=== PATIENT | female | born 1980 | race Caucasian/White ===

== ENCOUNTER 2025-04-01 12:54 | Emergency (ER) | payer MEDICARE, OTHER, MEDICAID, SELFPAY ==
[2025-04-01] VITALS (7 sets, daily range): BP systolic 112–150; BP diastolic 75–96; PULSE 88–110; RESP 18; TEMP 36.7; O2SAT 96–100
--- NOTE | 2025-04-01 13:00 | CTR_ITS ---
PROCEDURE INFORMATION: Exam: CT Head Without Contrast Exam date and time: 04/01/2025 1:17 PM Age: 44 years old Clinical indication: Stroke-like symptoms; Headache; Additional info: COLBERT TECHNIQUE: Imaging protocol: Computed tomography of the head without contrast. Radiation optimization: All CT scans at this facility use at least one of these dose optimization techniques: automated exposure control; mA and/or kV adjustment per patient size (includes targeted exams where dose is matched to clinical indication); or iterative reconstruction. Other technique: STROKE PROTOCOL was implemented. COMPARISON: No relevant prior studies available. RADIATION DOSE METRICS: Total DLP (mGy-cm): 1014.38 FINDINGS: Brain: Area of increased density within the right cerebellum measuring up to 1.5 cm may represent calcification, however focal hemorrhage cannot be excluded. Underlying mass lesion cannot be excluded. No acute confluent lobar ischemic infarct. Cerebral ventricles: The ventricles and sulci are normal in size and shape for the patient's stated age. Paranasal sinuses: No fluid levels. Mastoid air cells: Visualized mastoid air cells are well aerated. Bones: No acute calvarial fracture. Soft tissues: Visualized soft tissues are unremarkable. CT/CT head wo con* 13249 IMPRESSION: 1. Area of increased density within the right cerebellum measuring up to 1.5 cm may represent calcification, however focal hemorrhage cannot be excluded. Underlying mass lesion cannot be excluded. Recommend comparison to prior studies if available. If symptoms persist, consider further evaluation with MRI with and without IV contrast, if there are no contraindications to obtaining a MRI scan. 2. No acute confluent lobar ischemic infarct. ASSESSMENT: ASPECTS ([place] Stroke Program Early CT Score) is 10.
--- NOTE | 2025-04-01 13:03 | ED_ITS ---
HPI - Headache General: Chief Complaint: Headache Stated Complaint: HEADACHE Time Seen by Provider: 04/01/25 12:55 Source: patient and EMS Mode of arrival: EMS Limitations: no limitations History of Present Illness: 44-year-old female states she has a hist ory of hemiplegic migraines. States she has had a migraine over the last 3 days it feels like her previous migraines. She has no focal deficits here has had history of strokes. Patient is refusing all IV meds she states she only takes holistic supplements. She has refused IVs. Associated symptoms: Deny chest pain, fever(s), nausea, rash or vomiting Review of Systems Const: Denies: fever(s), chills, body aches or change in appetite Eyes: Reports: blurry vision; Denies: eye discomfort ENMT: Denies: throat pain or dental pain Card: Denies: chest pain Resp: Denies: dyspnea GI: Denies: abdominal pain, nausea, vomiting or diarrhea Musc: Denies: neck pain or back pain Skin/Breast: Denies: rash Neuro: Reports: headache(s) Physical Exam Const: COMMON NORMALS: no acute distress, patient oriented x3 and healthy appearing HENMT: COMMON NORMALS: normocephalic and atraumatic HEAD & SCALP: normocephalic and atraumatic Neck/C-Spine: COMMON NORMALS: supple Chest: COMMONS NORMALS: normal inspection of the chest Resp: COMMON NORMALS: normal respiratory effort Extremity: COMMON NORMALS: normal to inspection and full ROM Neuro: COMMON NORMALS: patient oriented x3, moves all extremities and no focal motor deficits Psych: COMMON NORMALS: mental status grossly normal, Normal thought process present and cooperative THOUGHT PROCESS: Normal thought process present Skin: COMMON NORMALS: no rashes or lesions noted and no wounds GENERAL SKIN EXAM: no rashes or lesions noted Course Vital Signs: Vital signs: Vital Signs Temperature 98.1 F 04/01/25 12:56 Pulse Rate 110 H 04/01/25 12:56 Respiratory Rate 18 04/01/25 12:56 Blood Pressure 150/96 04/01/25 12:56 Pulse Oximetry 100 04/01/25 12:56 Oxygen Delivery Me thod Room Air 04/01/25 12:56 MDM - Headache Medical Decision Making Patient presents here with headache head CT did show calcified mass versus hemorrhage did report see records from other facilities unable to get another old head CT will transfer to [facility] for an MRI to rule out hemorrhage Medical Records I reviewed the patient's medical records. Lab Data Radiology Impressions Head CT 04/01/25 13:00 IMPRESSION: 1. Area of increased density within the right cerebellum measuring up to 1.5 cm may represent calcification, however focal hemorrhage cannot be excluded. Underlying mass lesion cannot be excluded. Recommend comparison to prior studies if available. If symptoms persist, consider further evaluation with MRI with and without IV contrast, if there are no contraindications to obtaining a MRI scan. 2. No acute confluent lobar ischemic infarct. ASSESSMENT: ASPECTS ([place] Stroke Program Early CT Score) is 10. ADDENDUM: 04/01/25 1341 ADDENDUM: THIS REPORT CONTAINS FINDINGS THAT MAY BE CRITICAL TO PATIENT CARE. The findings were verbally communicated via telephone conference with ERIC BAILON at 1:40 PM CDT on 04/01/2025. The findings were acknowledged and understood. All radiology interpretation(s) finalized by discharge Discharge Plan Discharge Patient Disposition: Xfer Short-Term Hosp Clinical Impression: Headache Condition: Stable Referrals: Rhiannon Rosas MD [Referring, Family Practice] Print Language: Khmer Coding Level of Care Code ED Line Appliance Assembler for Lena Elise
--- NOTE | 2025-04-01 15:02 | PC.NURSE ---
pt refused IV for transport. pt states she is a DNR.
--- NOTE | 2025-04-01 15:43 | PC.PHAR ---
Patient states she takes Cannibus . She takes different strengths and various ways. Patient states it was suppose to come in the mail but she didn't receive it .
[2025-04-01 16:03] LABS: Basophils # 0.1 10^3/uL (0.0-0.1); Basophils % 0.6 %; Eosinophils % 0.1 %; Lymphocytes # 1.7 10^3/uL (0.8-4.8); Lymphocytes % 17.1 %; Mean Corpuscular HGB Conc 33.3 g/dL (30-55); Mean Corpuscular Hemoglobin 31.6 pg (27-33); Mean Corpuscular Volume 94.9 fl (85-98); Mean Platelet Volume 9.9 fL (7.4-10.4); Monocytes # 0.5 10^3/uL (0.2-0.9); Monocytes % 4.7 %; Neutrophils # 7.44 10^3/uL (1.8-7.7); Neutrophils % 77.3 %; Nucleated Red Blood Cells % 0 %; Platelet Count 278 10^3/cmm (157-399); Red Blood Count 4.11 10^6/uL (3.85-5.65); Red Cell Distribution Width 12.1 % (12.1-15.1); White Blood Count 9.63 10^3/uL (3.29-11.43)
[2025-04-01 16:15] LABS: INR 0.87 (0.8-1.2)
[2025-04-01 16:20] LABS: Anion Gap 17.7 (5-19); Blood Urea Nitrogen 14 mg/dL (6-20); Calcium 9.1 mg/dL (8.5-10.5); Carbon Dioxide 24 mmol/L (22-29); Chloride 104 mmol/L (98-107); Glomerular Filtration Rate 90.5 mL/min (90-130); Glucose 95 mg/dL (65-115); Osmolality Calculated 292 mOsm/kg (285-295); Potassium 4.7 mmol/L (3.5-5.1); Sodium 141 mmol/L (136-145)
== END 2025-04-01 16:42 | disposition short-term general hospital (02) ==
PROVIDERS: Emergency Provider Emergency Medicine
DX: R93.0 Abnormal findings on diagnostic imaging of skull and head, not elsewhere classified (principal); R51.9 Headache, unspecified
CPT/HCPCS: 36415; 70450; 80048; 85025; 85610; 99284; 99285

== ENCOUNTER 2025-04-30 17:24 | Inpatient (IN) | payer MEDICARE, OTHER, MEDICAID, SELFPAY ==
--- OUTSIDE RECORDS SUMMARY | 2025-04-30 11:57 | XMS_ITS | Continuity of Care Document ---
Author Name [facility] Organization [facility] Care Team Providers Care Supervisor Denture Department Name Role Phone [facility] Unavailable Unavailable Allergies, Adverse Reactions, Alerts Combined list of allergies from Department of Defense and Veterans Affairs facilities. It does not include entries that were removed or entered in error. Substance Category Reaction Severity Reaction type Status Date Reported Comments Source ALOE VERA (DO NOT USE, NOT SCREENED) (ALOE VERA) Drug allergy (disorder) Unknown active 12/20/2007 [facility] SUDAFED (PSEUDOEPHED RINE HCL) Drug allergy (disorder) Unknown active 12/20/2007 [facility] Social History Combined list of available smoking, tobacco, and other social history from Department of Defense and Veterans Affairs facilities. Social History Type Response Date Comment Sourc e This section is an empty social history section. DoD
[2025-04-30 17:28] VITALS: BP 132/85; PULSE 107; RESP 17; TEMP 37; O2SAT 100; BMI 21.4
--- NOTE | 2025-04-30 17:40 | ED.C_ITS ---
HPI - Psych 2 General: Chief Complaint: Psychiatric Symptoms Stated Complaint: 96 Time Seen by Provider: 04/30/25 17:24 Source: patient and police Mode of arrival: ambulatory History of Present Illness: 44-year-old female who is here with filippo ce on a 96-hour hold patient here is acutely psychotic she has flight of ideas here. Patient's family placed under 96-hour hold for psychosis. She had a recent admission to another facility. Patient denies SI or HI. Related Data Home Medications ?Medication ?Instructions ?Recorded ?Confirmed Cornell Plex Plus Iron 1 cap PO DAILY 04/01/2503/08 ashwagandha root extract 300 mg 300 mg PO DAILY 04/01/25 capsule vit A-vit O-iwxu-wlwqzgbr lozenges 1 addie PO Q2H 04/01/25 (Zinc (with Vitamins A and C) Lozenges) vit D3 50 mcg-vitamin K1 500 10 cap PO DAILY 5 04/01/25 mcg-MK4 1,500 mcg-MK7 180 mcg capsule Allergies Allergy/AdvReac Type Severity Reaction Status Date / Time Ephedrine Analogues Allergy Unknown Verified 04/30/25 17:30 ketamine Allergy Unknown Verified 04/30/25 17:30 Review of Systems 2 Const: Denies: fever(s) or chills ENMT: Denies: throat pain or dental pain Card: Denies: chest pain Resp: Denies: dyspnea GI: Denies: abdominal pain, nausea, vomiting or diarrhea Musc: Denies: neck pain or back pain Skin/Breast: Denies: rash Neuro: Denies: headache(s) Psych: Reports: paranoia Physical Exam 2 Const: COMMON NORMALS: no acute distress, patient oriented x3 and healthy appearing HENMT: COMMON NORMALS: normocephalic and atraumatic HEAD & SCALP: n ormocephalic and atraumatic Neck/C-Spine: COMMON NORMALS: full ROM and supple Chest: COMMONS NORMALS: normal inspection of the chest Resp: COMMON NORMALS: normal respiratory effort Cardio: COMMON NORMALS: regular rate, regular rhythm and No murmurs present (Cardio) RATE: regular rate RHYTHM: regular rhythm Extremity: COMMON NORMALS: normal to inspection and full ROM Neuro: COMMON NORMALS: patient oriented x3, moves all extremities and no focal motor deficits Psych: COMMON NORMALS: mental status grossly normal and cooperative THOUGHT PROCESS: Confabulating thought process present and Flight of ideas present Skin: COMMON NORMALS: no rashes or lesions noted and no wounds GENERAL SKIN EXAM: no rashes or lesions noted Course 2 Vital Signs: Vital signs: Vital Signs Temperature 98.6 F 04/30/25 17:28 Pulse Rate 107 H 04/30/25 17:28 Respiratory Rate 17 04/30/25 17:28 Blood Pressure 132/85 04/30/25 17:28 Pulse Oximetry 100 04/30/25 17:28 Oxygen Delivery Me thod Room Air 04/30/25 17:28 MDM - Psych Medical Decision Making Patient presents here with acute psychosis patient was placed on a 96-hour hold she is medically cleared I spoke to psychiatrist will admit. Medical Records I reviewed the patient's medical records. Lab Data I reviewed the patient's lab results. 04/30/25 17:50 04/30/25 17:50 Laboratory Results WBC 7.11 10^3/uL (3.29-11.43) 04/30/25 17:50 RBC 4.66 10^6/uL (3.85-5.65) 04/30/25 17:50 Hgb 14.40 g/dL (11.27-16.99) 04/30/25 17:50 Hct 43.9 % (36-47) 04/30/25 17:50 MCV 94.2 fl (85-98) 04/30/25 17:50 MCH 30.9 pg (27-33) 04/30/25 17:50 MCHC 32.8 g/dL (30-55) 04/30/25 17:50 RDW 11.9 % (12.1-15.1) L 04/30/25 17:50 Plt Count 300 10^3/cmm (157-399) 04/30/25 17:50 MPV 9.3 fL (7.4-10.4) 04/30/25 17:50 Neut % (Auto) 66.1 % 04/30/25 17:50 Lymph % (Auto) 25.3 % 04/30/25 17:50 [facility] % (Auto) 6.8 % 04/30/25 17:50 Eos % (Auto) 0.6 % 04/30/25 17:50 Baso % (Auto) 0.8 % 04/30/25 17:50 Neut # (Auto) 4.70 10^3/uL (1.8-7.7) 04/30/25 17:50 Lymph # (Auto) 1.8 10^3/uL (0.8-4.8) 04/30/25 17:50 [facility] # (Auto) 0.5 10^3/uL (0.2-0.9) 04/30/25 17:50 Eos # (Auto) 0.0 10^3/uL (0.0-0.8) 04/30/25 17:50 Baso # (Auto) 0.1 10^3/uL (0.0-0.1) 04/30/25 17:50 Nucleated RBC % (auto) 0 % 04/30/25 17:50 Nucleated RBCs # 0.0 /100WBC 04/30/25 17:50 Sodium 137 mmol/L (136-145) 04/30/25 17:50 Potassium 3.9 mmol/L (3.5-5.1) 04/30/25 17:50 Chloride 100 mmol/L (98-107) 04/30/25 17:50 Carbon Dioxide 23 mmol/L (22-29) 04/30/25 17:50 Anion Gap 17.9 (5-19) 04/30/25 17:50 BUN 14 mg/dL (6-20) 04/30/25 17:50 Creatinine 0.7 mg/dL (0.5-0.9) 04/30/25 17:50 GFR Calculation 90.5 mL/min (90-130) 04/30/25 17:50 Glucose 102 mg/dL (65-115) 04/30/25 17:50 Calculated Osmolality 285 mOsm/kg (285-295) 04/30/25 17:50 Calcium 9.0 mg/dL (8.5-10.5) 04/30/25 17:50 Total Bilirubin 0.3 mg/dL (0.15-1.2) 04/30/25 17:50 AST 14 U/L (0-32) 04/30/25 17:50 ALT 28 U/L (0-33) 04/30/25 17:50 Alkaline Phosphatase 81 U/L (35-105) 04/30/25 17:50 Total Protein 7.3 g/dL (6.6-8.7) 04/30/25 17:50 Albumin 4.4 g/dL (3.5-5.2) 04/30/25 17:50 Globulin 2.9 g/dL (1.3-4.6) 04/30/25 17:50 Salicylates < 0.3 mg/dL (3-10) L 04/30/25 17:50 Acetaminophen < 5.0 ug/mL (10-30) L 04/30/25 17:50 Ethyl Alcohol < 10 mg/dL (0-10) 04/30/25 17:50 No radiology studies performed this visit Discharge Plan Discharge Patient Disposition: Admitted As Inpatient Clinical Impression: Acute psychosis Condition: Stable Coding Level of Care Code ED Devops Architect for Lena Elise
[2025-04-30 18:04] LABS: Basophils # 0.1 10^3/uL (0.0-0.1); Basophils % 0.8 %; Eosinophils % 0.6 %; Hematocrit 43.9 % (36-47); Lymphocytes # 1.8 10^3/uL (0.8-4.8); Lymphocytes % 25.3 %; Mean Corpuscular HGB Conc 32.8 g/dL (30-55); Mean Corpuscular Hemoglobin 30.9 pg (27-33); Mean Corpuscular Volume 94.2 fl (85-98); Mean Platelet Volume 9.3 fL (7.4-10.4); Monocytes # 0.5 10^3/uL (0.2-0.9); Monocytes % 6.8 %; Neutrophils % 66.1 %; Nucleated Red Blood Cells % 0 %; Platelet Count 300 10^3/cmm (157-399); Red Blood Count 4.66 10^6/uL (3.85-5.65); Red Cell Distribution Width 11.9 % (12.1-15.1); White Blood Count 7.11 10^3/uL (3.29-11.43)
--- OUTSIDE RECORDS SUMMARY | 2025-04-30 18:07 | XMS_ITS | Clinical Summary ---
Author Organization [facility] Address [address] [place] [id number] Care Team Providers Care Station Cashier Name Role Phone Unavailable Primary Care Provider Unavailabl e Allergies No known active allergies Medications topiramate (TOPAMAX) 50 MG tablet Take 50 mg by mouth 2 (two) times a day. Active gabapentin (NEURONTIN) 300 MG capsule Take 300 mg by mouth 3 (three) times a day. Active TiZANidine (ZANAFLEX) 6 MG capsule Take 6 mg by mouth daily. Active venlafaxine (EFFEXOR) 75 MG tablet Take 75 mg by mouth 2 (two) times a day. Active butalbital-aceta minophen-caffein e (ESGIC) 50-325-40 mg per tablet Take 1 tablet by mouth every 4 (four) hours as needed for pain. Active Social History Tobacco Use Types Packs/Day Years Used Date Smoking Tobacco: Former Smokeless Tobacco: Never Alcohol Use Standard Drinks/Week Comments Never 0 (1 standard drink = 0.6 oz pur e alcohol) AUDIT-C Answer Date Recorded Q1: How often do you have a drink containing alc ohol? Never 02/18/2019 Q2: How many drinks containi ng alcohol do you have on a typical day when you are drinking? Patient declined 02/18/2019 Q3: How often do you have si x or more drinks on one occasion? Never 02/18/2019 Comments No Sex and Gender Information Value Date Recorded Sex Assigned at Not on file Legal Sex Female 6:07 PM CDT Gender Identity Not on file Sexual Orientation Not on file Last Filed Vital Signs Vital Sign Reading Time Taken Comments Blood Pressure 122/75 02/18/2019 7:35 AM CDT Pulse 71 02/18/2019 7:35 AM CDT Temperature 37.1 C (98.7 F) 02/18/2019 7:35 AM CDT Respiratory Rate 16 02/18/2019 7:35 AM CDT Oxygen Saturation 99% 02/18/2019 7:35 AM CDT Inhaled Oxygen Concentration - - Weight 74.4 kg (164 lb) 02/17/2019 9:46 PM CDT Height 162.6 cm (5' 4 ) 02/17/2019 9:46 PM CDT Body Mass Index 28.15 02/17/2019 9:46 PM CDT Plan of Treatment Health Maintenance Due Date Last Done Comments COLONOSCOPY 1979 CT Colonography 1979 Colorectal Cancer Screening 1979 FIT DNA 1979 FIT 1979 Hepatitis C Screening 1979 Mammogram 1979 SIGMOIDOSCOPY 1979 Anxiety Screening 1987 HIV Screening 1994 Depression Screening 1997 Hepatitis B Vaccine (1 of 3 - 19+ 3-dose series) 1998 TDAP/DTaP/TD Vaccines (1 - Tdap) 1998 Pap Smear 2000 Cervical Cancer Screening (30-65) 2009 HPV/Cotest 2009 Lipid Panel 02/19/2024 02/18/2019 COVID-19 Vaccine ( - 2023-2 5 season) 2024 Influenza Series (Season Ended) 2025 Meningococcal B Vaccine Aged Out No l onger eligible based on patient's age to complete this topic Pneumococcal Vaccine 0-50 years Aged Out No longer eligible based on patient's age to complete this topic Procedures Procedure Name Priority Date/Time Associated Diagnosis Comments LIPID PANEL Routine 02/18/2019 5:53 AM CDT from Last 3 Months or Most Recently Relevant to Health Maintenance Results * Lipid panel (CHOL, TRIG, HDL, LDL) (02/18/2019 5:53 AM CDT) Cholesterol 171 mg/dL 02/18/2019 6:33 AM CDT [facility] Comment:ADULT INTERVAL: Yohana rable:< 200 mg/dL, Borderline: 200-239 mg/dL, High Risk: > 239 mg/dL, CHILDREN and ADOLESCENTS: Desirable: <170 mg/dL, Borderline: 170- 199 mg/dL, High: >199 mg/dL Triglycerides 74 mg/dL 02/18/2019 6:33 AM CDT [facility] Comment:IN FASTING PATIENTS: Normal: <150 mg/dL, Borderline-High: 150-199 mg/dL, High: >199 mg/dL HDL 34 mg/dL 02/18/2019 6:33 AM CDT [facility] Comment:Desirable: >60, Incr eased Risk: <40 LDL Chol 122 mg/dL 02/18/2019 6:33 AM CDT [facility] Comment:ADULT INTERVALS: Opt imal < 100 mg/dL, Low risk 100-129 mg/dL, Borderline risk 130-159 mg/dL, High >159 mg/dL Blood 02/18/2019 5:53 AM CDT 02/18/2019 5:59 AM CDT Narrative [facility] - 02/18/2019 6:33 AM CDT An optional LDL-C goal of less than 70 mg/dL may be considered for patients at high CHD risk. In children and adolescents a desirable LDL serum cholesterol is less than 110 mg/dL. Norma Amor MD LAB BLOOD ORDERABLES Final Resul t [facility] [address] [id number], from Last 3 Months or Most Recently Relevant to Health Maintenance [place] [address] [address] [address] [employer] Advance Directives * Full Code (Latest Code Status on File) Date Activated Date Inactivated Comments 02/18/2019 4:58 AM 02/18/2019 11:16 PM
[2025-04-30 18:22] LABS: Acetaminophen < 5.0 ug/mL (10-30); Alanine Aminotransferase 28 U/L (0-33); Albumin Level 4.4 g/dL (3.5-5.2); Alcohol Level < 10 mg/dL (0-10); Alkaline Phosphatase 81 U/L (35-105); Anion Gap 17.9 (5-19); Aspartate Amino Transferase 14 U/L (0-32); Blood Urea Nitrogen 14 mg/dL (6-20); Carbon Dioxide 23 mmol/L (22-29); Chloride 100 mmol/L (98-107); Globulin 2.9 g/dL (1.3-4.6); Glomerular Filtration Rate 90.5 mL/min (90-130); Glucose 102 mg/dL (65-115); Osmolality Calculated 285 mOsm/kg (285-295); Potassium 3.9 mmol/L (3.5-5.1); Salicylate < 0.3 mg/dL (3-10); Sodium 137 mmol/L (136-145); Total Bilirubin 0.3 mg/dL (0.15-1.2); Total Protein 7.3 g/dL (6.6-8.7)
[2025-04-30 18:41] LABS: HCG Qualitative Urine. Negative (Negative)
[2025-04-30 18:46] LABS: Amphetamines Screen Urine Negative (Negative); Barbiturates Screen Urine Negative (Negative); Benzodiazepines Screen Urine Negative (Negative); Cocaine Screen Urine Negative (Negative); Opiate Screen Urine Negative (Negative); PCP Screen Urine Negative (Negative); THC Screen Urine Negative (Negative)
--- NOTE | 2025-04-30 18:46 | PC.NURSE ---
96 hr rights reviewed with pt @0773 with assistance of [facility] credit administration officer Carlos Aguilera. All education reviewed with pt at this time. Pt verbalized understanding to hold parameters but insisted to this HS that she was not here for psychiatric related reasons. Pt was provided a copy of her 96 hr hold pt rights. Pt dressed out, labs obtained, and 1:1 PSA within sight of pt. No further needs at this time.
[2025-04-30 19:06] VITALS: BP 128/72; PULSE 98; RESP 16; O2SAT 100
[2025-04-30 21:49] VITALS: BP 115/75; PULSE 81; RESP 20; TEMP 36.9; O2SAT 99
[2025-04-30 21:57] VITALS: BP 120/80; PULSE 85; RESP 16; O2SAT 100
[2025-04-30 22:00] VITALS: BP 115/75; PULSE 81; RESP 20; TEMP 36.9; O2SAT 99
[2025-05-01 06:00] VITALS: BP 95/57; PULSE 77; RESP 16; O2SAT 99
[2025-05-01 14:00] VITALS: BP 111/70; PULSE 90; RESP 16; TEMP 36.7; O2SAT 99
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
[2025-05-01 22:00] VITALS: BP 115/68; PULSE 79; RESP 20; TEMP 36.6; O2SAT 97
[2025-05-01] MEDS: MELATONIN 3 MG TABLET 9 MG PO (22:06)
[2025-05-02 06:00] VITALS: BP 96/62; PULSE 62; RESP 19; TEMP 36.4; O2SAT 97
--- NOTE | 2025-05-02 11:47 | P.NPUPN_ITS ---
Subjective NPU 2 Subjective: Patient presents today reporting that she is doing okay. She identified that she has all these complaints that she believes to be real and gets very frustrated at any suggestion that there may need to be some independent assessment of the validity of these somatic complaints and medical conditions that she swears exist including the danger of her walking leading to a heart attack. We discussed the possibility of taking her wheelchair. She is not on any medications and has not open the medications because she does not believe that there is any psychiatric condition here to be addressed. Mental Status Exam 2 MSE Comments: This is a well-nourished well-developed white female in hospital scrubs with limited grooming and eye contact. No abnormal movements except for significant psychomotor retardation. Somewhat cooperative with exam in mild to moderate distress. Speech was increased rate but normal volume At times she was pressured. Mood described as fine and not needing to be on a psychiatric unit, but affect somewhat irritable. Thought process linear at times but quite disorganized at others. Thought content: Patient denied suicidal or homicidal ideation, there were no delusions reported but she clearly had paranoid, persecutory and significant somatic/medical ideations and delusions, she did not report any auditory or visual hallucinations. Stressors include legal and civil process issues, financial issues, and family involvement in psychiatric hospitalizations. Attention and concentration were intact and memory was unreliable, but none were formally tested. She was alert and oriented to person and place. Insight, judgment and impulse control are all impaired. Vitals/I&O/Wt Last Vital Signs Temp 97.6 F 05/02/25 06:00 Pulse 62 05/02/25 06:00 Resp 19 H 05/02/25 06:00 BP 96/62 05/02/25 06:00 Pulse Ox 97 05/02/25 06:00 O2 Del Method Room Air 05/02/25 06:00 Weight last 48 hrs Weight 56.699 kg Data NPU 04/30/25 17:50 04/30/25 17:50 A&P Assessment and plan (1) Acute psychosis: Plan This is a 44-year-old white female who is unknown to this typewriter repairer or [facility] psychiatry through inpatient or outpatient services and presents with significant somatic complaints reporting that she has to use a wheelchair and has multiple different afflictions and comorbidities denying any psychiatric needs but reporting special abilities to tell when there is cancer at a certain site on her body as well as other abilities she has to just know that something is wrong because it is what she thinks. She is a spouse and all kinds of different limitations that are related to medical problems including cardiac issues, DVTs, weakness, and endorsing no connection to psychiatry though endorses having 3 past inpatient hospitalizations. 1. Encourage initiation of an antipsychotic. 2. Continue every 15 minute checks for safety. 3. Encourage individual, group and milieu therapies. 4. Will encourage trial of medication with a possible long acting injectable possibility. 5. We will evaluate against the backdrop of the 96-hour hold. 6. Obtain collateral information. PDMP PDMP Reviewed: Not Reviewed Involuntary Hold Information 2 Hold Status: Legal Status: 96 Hour Hold Date/Time Hold Expires: 05/06 1728pm Attestations NPU 2 Medical Necessity Statement*: Inpatient hospitalization is medically necessary and the clinically appropriate intervention at this time. We will monitor medications and make changes as indicated. Likely length of stay 7-10 days. Likely need for 21 day hold. Coding Level of Care Code Acute Code for Chg Fwd Diagnoses Acute psychosis F23
[2025-05-02 14:00] VITALS: BP 108/73; PULSE 90; RESP 18; TEMP 36.8; O2SAT 100
[2025-05-02 21:36] VITALS: BP 95/64; PULSE 90; RESP 17; TEMP 36.6; O2SAT 98
[2025-05-02] MEDS: MELATONIN 3 MG TABLET 9 MG PO (21:51)
[2025-05-03 06:00] VITALS: BP 103/59; PULSE 85; RESP 18; TEMP 36.5; O2SAT 99
[2025-05-03 14:00] VITALS: BP 98/60; PULSE 80; RESP 16; TEMP 37.2; O2SAT 98
--- NOTE | 2025-05-03 15:36 | W.PM.NPUPNS ---
Subjective NPU Subjective: Patient presented today continuing her long-winded discussions about somatic issues and how she was put on disability secondary to multiple different concerns and continuing to report the dangers of her walking with no signs of any discomfort. We asked for her to provide any information into her circumstances. We discussed that we would attempt to get a hold of Dr. Chaudhary to understand what her intersection with her was given she may have some insight into these neurological complaints. She denies any psychiatric concerns, wants to be discharged and is not interested in any medications. Mental Status Exam MSE Comments: This is a well-nourished well-developed white female in hospital scrubs with limited grooming and eye contact. No abnormal movements except for significant psychomotor retardation. Somewhat cooperative with exam in mild to moderate distress. Speech was increased rate but normal volume At times she was pressured. Mood described as fine and not needing to be on a psychiatric unit, but affect somewhat irritable. Thought process linear at times but quite disorganized at others. Thought content: Patient denied suicidal or homicidal ideation, there were no delusions reported but she clearly had paranoid, persecutory and significant somatic/medical ideations and delusions, she did not report any auditory or visual hallucinations. Stressors include legal and civil process issues, financial issues, and family involvement in psychiatric hospitalizations. Attention and concentration were intact and memory was unreliable, but none were formally tested. She was alert and oriented to person and place. Insight, judgment and impulse control are all impaired. Vitals/I&O/Wt Last Vital Signs Temp 97.7 F 05/03/25 06:00 Pulse 85 05/03/25 06:00 Resp 18 05/03/25 06:00 BP 103/59 05/03/25 06:00 Pulse Ox 99 05/03/25 06:00 O2 Del Method Room Air 05/03/25 06:00 Data NPU 04/30/25 17:50 04/30/25 17:50 A&P Assessment and plan (1) Acute psychosis: Plan This is a 44-year-old white female who is unknown to this technical publications writer or [facility] psychiatry through inpatient or outpatient services and presents with significant somatic complaints reporting that she has to use a wheelchair and has multiple different afflictions and comorbidities denying any psychiatric needs but reporting special abilities to tell when there is cancer at a certain site on her body as well as other abilities she has to just know that something is wrong because it is what she thinks. She is a spouse and all kinds of different limitations that are related to medical problems including cardiac issues, DVTs, weakness, and endorsing no connection to psychiatry though endorses having 3 past inpatient hospitalizations. 1. Encourage initiation of an antipsychotic. 2. Continue every 15 minute checks for safety. 3. Encourage individual, group and milieu therapies. 4. Will encourage trial of medication with a possible long acting injectable possibility. 5. We will evaluate against the backdrop of the 96-hour hold. 6. Obtain collateral information. PDMP PDMP Reviewed: Not Reviewed Involuntary Hold Information Hold Status: Legal Status: 96 Hour Hold Date/Time Hold Expires: 05/06 1728pm Attestations NPU Medical Necessity Statement*: Inpatient hospitalization is medically necessary and the clinically appropriate intervention at this time. We will monitor medications and make changes as indicated. Likely length of stay 7-10 days. Likely need for 21 day hold. Coding Level of Care Code Acute Code for Chg Fwd Diagnoses Acute psychosis F23
[2025-05-03 20:29] VITALS: BP 92/64; PULSE 7; RESP 18; TEMP 37.3; O2SAT 99
[2025-05-03] MEDS: MELATONIN 3 MG TABLET 9 MG PO (22:28)
--- NOTE | 2025-05-04 03:55 | PC.NURSE ---
Patient assessment significant for patient with rapid speech and flight of ideas. 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 She states she really needs the [facility] because I have peripheral blind spots and a fire alarm. She states that she has sun poisoning and leprosy. Discussed with patient her current ADL's she states that she uses a rolling walker and is disabled. She has good strength in her upper and lower extremities. Patient has requested to have family bring her walker from home and she said they are also bringing her disability file. Patient has been using a WC while on the unit. She also ambulates in room without the WC. Informed patient that we will be getting a walker for her to use while she is here until her walker is brought in. Patient denies anxiety, depression, SI/HI and AVH. Patient received Melatonin 9 mg po for c/o insomnia and has slept since receiving it.
[2025-05-04 06:00] VITALS: BP 106/68; PULSE 85; RESP 18; TEMP 36.7; O2SAT 100
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
[2025-05-04 14:00] VITALS: BP 108/68; PULSE 76; RESP 16; O2SAT 100
[2025-05-04] MEDS: MELATONIN 3 MG TABLET 9 MG PO (20:17)
[2025-05-04 22:00] VITALS: BP 105/77; PULSE 106; RESP 18; TEMP 37.1; O2SAT 98
[2025-05-05 06:00] VITALS: RESP 16
[2025-05-05 14:00] VITALS: BP 124/78; PULSE 74; RESP 16; TEMP 37; O2SAT 98
--- NOTE | 2025-05-05 17:29 | ECG_ITS ---
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 Measurements Intervals [place] Rate: 83 P: 23 WV: 129 QRS: 44 QRSD: 92 T: 50 QT: 372 QTc: 439 Interpretive Statements SINUS RHYTHM POSSIBLE RIGHT VENTRICULAR CONDUCTION DELAY [RSR (QR) IN V1/V2] No previous ECG available for comparison Electronically Signed On 05-09-2025 09:10:56 CDT by Franky Amos M.D. [email or web address]
--- NOTE | 2025-05-05 18:23 | W.PM.NPUPNS ---
Subjective NPU Subjective: 44-year-old female with a history of traumatic brain injury who presented with psychosis. The patient refused any medications at this time. She was not aggressive. She had continued to endorse a myriad of different complaints including having chest pain. An EKG was completed. She reports having special abilities to detect cancer. She had elicited a variety of complaints stating that she had had medical problems including migraines that were triggered by her fibromyalgia. She remained convinced that the reason that she was here on a psychiatric unit was because there had been a simple misunderstanding. She had stated that she had things worked out at home and felt ready to go home as soon as possible. The patient reported no suicidal thoughts or homicidal thoughts. Mental Status Exam MSE Comments: This is a well-nourished ,well-developed, white female in hospital scrubs with limited grooming and eye contact. She was lying in the dark reporting a migraine. No abnormal movements except for significant psychomotor retardation. She was somewhat cooperative with exam in mild to moderate distress. Speech was increased in rate, productivity and normal in volume. Mood described as good. Her affect was subdued. Thought process was linear at times but quite disorganized at others. Thought content: Patient denied suicidal or homicidal ideation, there were ideas of reference appreciated. She endorsed various medical and somatic complaints. she did not report any auditory or visual hallucinations. Stressors include legal and civil process issues, financial issues, and family involvement in psychiatric hospitalizations. Attention and concentration were intact and memory was unreliable, but none were formally tested. She was alert and oriented to person, place and time. Insight is impaired. Her judgment is limited and impulse control was fair. Vitals/I&O/Wt Last Vital Signs Temp 98.6 F 05/05/25 14:00 Pulse 74 05/05/25 14:00 Resp 16 05/05/25 14:00 BP 124/78 05/05/25 14:00 Pulse Ox 98 05/05/25 14:00 O2 Del Method Room Air 05/05/25 14:00 Weight last 48 hrs Weight 54.658 kg Data NPU 04/30/25 17:50 04/30/25 17:50 A&P Assessment and plan (1) Acute psychosis: Plan This is a 44-year-old white female who is unknown to this fiction and nonfiction prose writer or [facility] psychiatry through inpatient or outpatient services and presents with significant somatic complaints reporting that she has to use a wheelchair and has multiple different afflictions and comorbidities denying any psychiatric needs but reporting special abilities to tell when there is cancer at a certain site on her body as well as other abilities she has to just know that something is wrong because it is what she thinks. She is a spouse and all kinds of different limitations that are related to medical problems including cardiac issues, DVTs, weakness, and endorsing no connection to psychiatry though endorses having 3 past inpatient hospitalizations. 1. Encourage initiation of an antipsychotic. 2. Continue every 15 minute checks for safety. 3. Encourage individual, group and milieu therapies. 4. Will encourage trial of medication with a possible long acting injectable possibility. 5. We will evaluate against the backdrop of the 96-hour hold which expires tommorow. PDMP PDMP Reviewed: Not Reviewed Involuntary Hold Information Hold Status: Legal Status: 96 Hour Hold Date/Time Hold Expires: 05/06 1728pm Attestations NPU Medical Necessity Statement*: Inpatient hospitalization is medically necessary and the clinically appropriate intervention at this time. We will monitor medications and make changes as indicated. The patient's likely length of stay is 4-6 days. Coding Level of Care Code Acute Code for Chg Fwd Diagnoses Acute psychosis F23
[2025-05-05] MEDS: MELATONIN 3 MG TABLET 9 MG PO (20:51)
[2025-05-05 22:00] VITALS: RESP 18
[2025-05-06 06:00] VITALS: BP 97/70; PULSE 88; RESP 17; TEMP 36.4; O2SAT 98
--- NOTE | 2025-05-06 12:35 | DCPLANNER ---
IMM completed 05/06/2025 @ 4225 and pt was give an copy of her rights.
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
[2025-05-06 13:09] VITALS: BP 97/59; PULSE 81; RESP 16; TEMP 36.8; O2SAT 100
[2025-05-06 13:12] VITALS: BP 97/59; PULSE 81; RESP 16; TEMP 36.8; O2SAT 100
== END 2025-05-06 13:45 | disposition home or self-care (01) | DRG 885 ==
LOC: ER 21:11 → NP 21:30
PROVIDERS: Admitting Provider Psychiatry & Neurology Psychiatry; Emergency Provider Emergency Medicine; Visit Provider Psychiatry & Neurology Psychiatry
DX: F23 Brief psychotic disorder (principal); I25.10 Atherosclerotic heart disease of native coronary artery without angina pectoris; Z87.820 Personal history of traumatic brain injury; Z86.73 Personal history of transient ischemic attack (TIA), and cerebral infarction without residual deficits; Z86.718 Personal history of other venous thrombosis and embolism; Z85.828 Personal history of other malignant neoplasm of skin
CPT/HCPCS: 36415; 80053; 80306; 80307; 81025; 85025; 93005; 97150; 97165; 97530; 99285; J9999

== ENCOUNTER 2025-09-10 16:28 | Inpatient (IN) | payer MEDICARE, OTHER, MEDICAID, SELFPAY ==
--- OUTSIDE RECORDS SUMMARY | 2024-09-01 03:00 | XMS_ITS ---
Author Organization [facility] Address [address] [place] [address] Care Team Providers Care Printed Forms Proofreader Name Role Phone Xavier Rizo MD Primary Care Provider Unavaila ble Migration, Provider Unavailable Unavailable REASON FOR VISIT EMR-Petey Encounters Encounter Location Date Provider Diagnosis Migrated_Facility 0 0 09/01/2024 Provider Migration Plan Of Treatment Medication Medication Name Sig Start Date Stop Date Notes Gabapentin 300 MG Capsule 1 Capsule Thre e times a Day Oral 04/30/2019 07/29/2019 Progress Notes * Swetha PATTENDOB:1980 (45 yo F)Acc No.[id number]:09/01/2024 Patient: Swetha DAY :1980 A ge:44 Y S ex:Female Address:[address] [place], [address] * Refills Stop Gabapentin Capsule, 300 MG, Oral, 1 Capsule Three times a Day Subjective: * Chief Complaints: * E MR-Petey * * Date:
--- OUTSIDE RECORDS SUMMARY | 2024-09-02 03:00 | XMS_ITS ---
Author Organization [facility] Address [address] [place], [place] [address] Care Team Providers Care Medical Liaison Name Role Phone Xavier Rizo MD Primary Care Provider Unavaila ble Migration, Provider Unavailable Unavailable Allergies Allergen (clinical drug ingredient) Drug/Non Drug Allergy documented on EMR Reaction Allergy Type Onset Date Status Aloe Vera hives,swelling Drug Allergy Ac tive pseudoephedrine Pseudoephedrine palpitations Drug Allergy Active REASON FOR VISIT EMR-Petey Medications Medication SIG (Take, Route, Frequency, Duration) Notes Start Date End Date Status Lexapro *[facility]* Active Voltaren *[facility] Active Aleve *[facility]* Active Aspirin *[facility]* Active Ibuprofen *[facility]* Active Butalbital-Acetamino phen *[facility] for [facility]* Active Tylenol *[facility] for [facility]* Active Social History Social History Additional Details Category Social Info Options Details Migrated Social History Migrated Social History Alcoholic beverages? - Yes, Applying for disability? - Yes, Currently on disability? - No, Drug or substance abuse? - No, If yes, frequency of alcoholic beverages - Less than 1 drink per week., Marital Status - , Nonprescription drug use? - No, Smoking - No, Smoking status (MU) - Never smoker, Working currently? - No Encounters Encounter Location Date Provider Diagnosis Migrated_Facility 0 0 09/02/2024 Provider Migration Plan Of Treatment No Information Progress Notes * Swetha PATTENDOB:1980 (45 yo F)Acc No.[id number]:09/02/2024 Patient: Swetha DAY :1980 A ge:44 Y S ex:Female Address:[facility] [address] [facility] [address] Subjective: * Chief Complaints: * E MR-Petey * Medical History: Arthritis, B ronchitis, C lassic migraine, C onstipation, D epression, H ypoglycemia, M uscle disease, S welling joint, finger, hand, * Surgical History: section * Family History: M igrated Family History: : Cancer, D iabetes, H eart disease, p sychiatric problems, R heumatoid arthritis, S troke. * Social History: M igrated Social History: M igrated Social History: Alcoholic beverages? - Yes, A pplying for disability? - Yes, C urrently on disability? - No, D rug or substance abuse? - No, I f yes, frequency of alcoholic beverages - Less than 1 drink per week., M arital Status - , N onprescription drug use? - No, S moking - No, S moking status (MU) - Never smoker, W orking currently? - No. * Medications: T akingButalbital-Acetaminophen , Notes to Pharmacist: *Pick strength-form from [facility] for eRX*Lexapro , Notes to Pharmacist: *Pick strength-form from [facility] for eRX*Aspirin , Notes to Pharmacist: *Pick strength-form from [facility] for eRX*Voltaren , Notes to Pharmacist: *Pick strength-form from [facility] for eRX*Tylenol , Notes to Pharmacist: *Pick strength-form from [facility] for eRX*Ibuprofen , Notes to Pharmacist: *Pick strength-form from [facility] for eRX*Aleve , Notes to Pharmacist: *Pick strength-form from [facility] for eRX*Taking Butalbital-Acetaminophen , Notes to Pharmacist: *Pick strength-form from [facility] for eRX*Taking Lexapro , Notes to Pharmacist: *Pick strength-form from [facility] for eRX*Taking Aspirin , Notes to Pharmacist: *Pick strength-form from [facility] for eRX*Taking Voltaren , Notes to Pharmacist: *Pick strength-form from [facility] for eRX*Taking Tylenol , Notes to Pharmacist: *Pick strength-form from [facility] for eRX*Taking Ibuprofen , Notes to Pharmacist: *Pick strength-form from [facility] for eRX*Taking Aleve , Notes to Pharmacist: *Pick strength-form from [facility] for eRX* * Allergies: A stephen Vera: hives,swelling - AllergyPseudoephedrine: palpitations - Allergy * * Date:
--- NOTE | 2025-09-10 16:30 | ECG_ITS ---
[facility] Test Date: 2025-09-10 Pat Name: Swetha Richard Department: Room: 150 Gender: Female Military Analyst: : 1980 Requested By: Bessy López Order Number: [id number] Shahbaz MD: Carmenza Ward M.D. Measurements Intervals [place] Rate: 89 P: 73 IL: 121 QRS: 70 QRSD: 86 T: 69 QT: 387 QTc: 472 Interpretive Statements SINUS RHYTHM Compared to ECG 05/05/2025 17:29:46 No significant changes Electronically Signed On 09-10-2025 21:50:56 MANAGER IN TRAINING by Carmenza Ward M.D. [email or web address]
--- NOTE | 2025-09-10 16:34 | ED.C_ITS ---
HPI - Psych 2 General: Chief Complaint: Psychiatric Symptoms Stated Complaint: Weakness History of Present Illness: 45-year-old female who presents emergenc y room by ambulance. EMS was initially called for a possible fall. She was laying in the parking lot of a local business. She told them that she has had multiple strokes and she felt like she was having another so she laid down on the ground. Shortly into the drive she started talking about things that were not real. She was having flight of ideas and thoughts of grandeur. When I see her here she is all over the place and really makes no sense. She seems pressured. She is wearing odd clothing. EMS reports that she may have been incarcerated in [place] recently. And possibly admitted there. However whenever I call ER doctor at [place] they said she has not been admitted there since 2019 but had very similar presentation at the time. Related Data Home Medications ?Medication ?Instructions ?Recorded ?Confirmed No Known Home Medications 05/01/2504/08 Allergies Allergy/AdvReac Type Severity Reaction Status Date / Time Ephedrine Analogues Allergy Unknown Verified 04/30/25 17:30 ketamine Allergy Unknown Verified 04/30/25 17:30 Review of Systems 2 General: Reports: ROS unobtainable due to mental status Physical Exam 2 Narrative: EXAM NARRATIVE: General: Alert, no acute distress. Skin: Warm, dry. Head: Normocephalic, atraumatic. Neck: Supple, trachea midline. Eye: Extraocular movements are intact. Ears, nose, mouth and throat: mucosa moist. Cardiovascular: Regular, Normal peripheral perfusion. Respiratory: Lungs are clear to auscultation, respirations are non-labored, breath sounds are equal, Symmetrical chest wall expansion. Gastrointestinal: Soft, Nontender, Non distended Musculoskeletal: Normal ROM, no deformity. Neurological: Alert and oriented, No focal neurological deficit observed. Psychiatric: Uncooperative. Flight of ideas. Manic/pressured. Course 2 Vital Signs: Vital signs: Vital Signs Temperature 98.7 F 09/10/25 16:38 Pulse Rate 65 09/10/25 19:24 Respiratory Rate 16 09/10/25 19:24 Blood Pressure 109/64 09/10/25 19:24 Pulse Oximetry 98 09/10/25 19:24 Oxygen Delivery Me thod Room Air 09/10/25 16:38 MDM - Psych Medical Decision Making Medical decision making: Patient's reason for coming to the emergency room: Psychosis Social determinants: Patient is unemployed. No contacts listed. I reviewed the patient's medical record. Patient had an admission here back in April of this year. From that I gather that she has had coronary artery disease and a stroke in the past. She also reported a traumatic brain injury at the time. However it is unclear if any of these things are true. I reviewed the patient's current home meds: No currently listed home meds. Alternate historians: I did speak with EMS. I also spoke with ER physician at [facility] who confirms she had a similar type admission back in 2019 but none since Differential diagnosis for patient with reported psychosis with plan for psychiatric admission including but not limited to and based on the above HPI, review of systems and physical exam: concerns for infection, alcohol intoxication, cardiac issues or other medical problems prior to psychiatric admission. Orders placed to evaluate differential diagnosis based on the above differential, HPI and physical exam labwork, ekg ordered to evaluate the pathologies and to clear the patient medically prior to psychiatric admission Lab Review: Laboratory results were reviewed and interpreted by myself the emergency room physician. - Medically cleared. - EKG shows no ischemic changes. - Blood alcohol level is negative, as well as salicylate and Tylenol. - Drug screen is negative - No signs of infection, urinalysis clear and white count is not elevated - No anemia. - BUN and creatinine are within normal limits. Assessment of risk: - Level of risk: High risk. Patient seems psychotic - Was hospitalization considered? Patient is being admitted Reexamination: Patient did calm down some after receiving medications. Consultation: I spoke with Dr. Drummond who is on-call for psychiatry who agrees to admission. Assessment and plan: Acute psychosis -Admission to neuropsychiatric unit for continued evaluation and treatment. - All lab work was reviewed and interpreted personally by myself, the ER physician - Evaluation and treatment of this problem were appropriate in the emergency setting Lab Data 09/10/25 17:05 09/10/25 17:05 Laboratory Results WBC 10.12 10^3/uL (3.29-11.43) 09/10/25 17:05 RBC 4.28 10^6/uL (3.85-5.65) 09/10/25 17:05 Hgb 13.00 g/dL (11.27-16.99) 09/10/25 17:05 Hct 39.3 % (36-47) 09/10/25 17:05 MCV 91.8 fl (85-98) 09/10/25 17:05 MCH 30.4 pg (27-33) 09/10/25 17:05 MCHC 33.1 g/dL (30-55) 09/10/25 17:05 RDW 13.4 % (12.1-15.1) 09/10/25 17:05 Plt Count 271 10^3/cmm (157-399) 09/10/25 17:05 MPV 9.7 fL (7.4-10.4) 09/10/25 17:05 Neut % (Auto) 83.7 % 09/10/25 17:05 Lymph % (Auto) 10.5 % 09/10/25 17:05 [place] % (Auto) 4.9 % 09/10/25 17:05 Eos % (Auto) 0.1 % 09/10/25 17:05 Baso % (Auto) 0.5 % 09/10/25 17:05 Neut # (Auto) 8.47 10^3/uL (1.8-7.7) H 09/10/25 17:05 Lymph # (Auto) 1.1 10^3/uL (0.8-4.8) 09/10/25 17:05 [place] # (Auto) 0.5 10^3/uL (0.2-0.9) 09/10/25 17:05 Eos # (Auto) 0.0 10^3/uL (0.0-0.8) 09/10/25 17:05 Baso # (Auto) 0.1 10^3/uL (0.0-0.1) 09/10/25 17:05 Nucleated RBC % (auto) 0 % 09/10/25 17:05 Nucleated RBCs # 0.0 /100WBC 09/10/25 17:05 Sodium 141 mmol/L (136-145) 09/10/25 17:05 Potassium 4.5 mmol/L (3.5-5.1) 09/10/25 17:05 Chloride 103 mmol/L (98-107) 09/10/25 17:05 Carbon Dioxide 22 mmol/L (22-29) 09/10/25 17:05 Anion Gap 20.5 (5-19) H 09/10/25 17:05 BUN 14 mg/dL (6-20) 09/10/25 17:05 Creatinine 0.7 mg/dL (0.5-0.9) 09/10/25 17:05 GFR Calculation 90.1 mL/min (90-130) 09/10/25 17:05 Glucose 96 mg/dL (65-115) 09/10/25 17:05 Calculated Osmolality 292 mOsm/kg (285-295) 09/10/25 17:05 Calcium 9.5 mg/dL (8.5-10.5) 09/10/25 17:05 Total Bilirubin 0.7 mg/dL (0.15-1.2) 09/10/25 17:05 AST 12 U/L (0-32) 09/10/25 17:05 ALT 10 U/L (0-33) 09/10/25 17:05 Alkaline Phosphatase 48 U/L (35-105) 09/10/25 17:05 Total Protein 7.3 g/dL (6.6-8.7) 09/10/25 17:05 Albumin 4.6 g/dL (3.5-5.2) 09/10/25 17:05 Globulin 2.7 g/dL (1.3-4.6) 09/10/25 17:05 TSH 1.07 uIU/mL (0.27-4.20) 09/10/25 17:05 HCG, Qual Negative (Negative) 09/10/25 17:17 Urine Color Yellow (Yellow) 09/10/25 17:17 Urine Appearance Clear (CLEAR) 09/10/25 17:17 Urine pH 5.5 (5-7) 09/10/25 17:17 Ur Specific [place] 1.003 (1.005-1.030) L 09/10/25 17:17 Urine Protein Negative (Negative) 09/10/25 17:17 Urine Glucose (UA) Negative (Normal) 09/10/25 17:17 Urine Ketones 1+ (Negative) H 09/10/25 17:17 Urine Blood Trace (Negative) A 09/10/25 17:17 Urine Nitrate Negative (Negative) 09/10/25 17:17 Urine Bilirubin Negative (Negative) 09/10/25 17:17 Urine Urobilinogen 0.2 mg/dL (Negative) 09/10/25 17:17 Ur Leukocyte Esterase Negative (Negative) 09/10/25 17:17 Urine RBC 0-2 /hpf (0-2) 09/10/25 17:17 Urine WBC 0-5 /hpf (0-5) 09/10/25 17:17 Ur Squamous Epith Cells 0-5 /hpf (0-5) 09/10/25 17:17 Amorphous Sediment Not Reportable 09/10/25 17:17 Urine Bacteria 1+ /hpf (NONE) H 09/10/25 17:17 Hyaline Casts 0.40 /lpf 09/10/25 17:17 Salicylates < 0.3 mg/dL (3-10) L 09/10/25 17:05 Urine Opiates Screen Negative ng/mL (Negative) 09/10/25 17:17 Acetaminophen < 5.0 ug/mL (10-30) L 09/10/25 17:05 Ur Barbiturates Screen Negative ng/mL (Negative) 09/10/25 17:17 Ur Phencyclidine Scrn Negative ng/mL (Negative) 09/10/25 17:17 Ur Amphetamines Screen Negative ng/mL (Negative) 09/10/25 17:17 U Benzodiazepines Scrn Negative ng/mL (Negative) 09/10/25 17:17 Urine Cocaine Screen Negative ng/mL (Negative) 09/10/25 17:17 U Marijuana (THC) Screen Positive ng/mL (Negative) H 09/10/25 17:17 Ethyl Alcohol < 10 mg/dL (0-10) 09/10/25 17:05 No radiology studies performed this visit Discharge Plan Discharge Patient Disposition: Admitted As Inpatient Admit Provider: Deuce Drummond Clinical Impression: Acute psychosis Condition: Stable Coding Level of Care Code ED Retail Sales Associate Bilingual for Lena Elise
--- OUTSIDE RECORDS SUMMARY | 2025-09-10 16:37 | XMS_ITS | Patient Health Record ---
Author Organization [facility] Address [address] [place], [place] [address] Care Team Providers Care Risk Officer Name Role Phone Xavier Rizo MD Primary Care Provider Unavaila ble Reason For Referral No Information Medications Medication SIG (Take, Route, Frequency, Duration) Notes Start Date End Date Status Lexapro *Pick strength-form from Medispan for eRX* Active Voltaren *Pick strength-form from Medis[employer] for eRX* Active Aleve *Pick strength-form from [employer] for eRX* Active Butalbital-Acetamino phen *Pick strength-form from [employer]is[employer] for eRX* Active Aspirin *Pick strength-form from Medis[employer] for eRX* Active Ibuprofen *Pick strength-form from Medis[employer] for eRX* Active Tylenol *Pick strength-form from Medis[employer] for eRX* Active Immunizations Vaccine Route Administration Date Status Comme nts Influenza (split), 3 yrs and above Unknown 09/18/2018 Refused Admin When: [facility] REFUSED Pneumococcal conjugate PCV 7 Unknown 09/18/2018 Refused Admin When: OXANA ENT REFUSED Social History Social History Additional Details Category [...] - Never smoker, Working currently? - No Plan Of Treatment No Information Insurance Providers Payer Name Payer Address Payer Phone Subscriber Number Group Number Insured Name Patient Relationship to Insured Coverage Start Date Coverage End Date [facility] [address] [address] [place] [address] [id number] Swetha Richard Self - patient is the insured 5 [employer] [place] [address] [address] [place] [address] [id number] Swetha Richard Self - patient is the insured 7 8 Medical (General) History Surgical History Surgery Date(Month/Year) section
--- OUTSIDE RECORDS SUMMARY | 2025-09-10 16:37 | XMS_ITS | Patient Health Record ---
Author Organization [facility] Address [address] [place] [address] Care Team Providers Care Mold Shaker Name Role Phone RalphRhiannon Primary Care Provider UnavailAngela Morris Unavailable [phone] Neal Bennett Unavailable [phone] Allergies Allergen (clinical drug ingredient) Drug/Non Drug Allergy documented on EMR Reaction Allergy Type Onset Date Status pseudoephedrine Pseudoephedrine (uncoded) , , Allergy Active Aloe , , Drug Allergy Active pseudoephedrine pseudoephedrine Unknown Drug Allergy Active Reason For Referral No Information Medications Medication SIG (Take, Route, Frequency, Duration) Notes Start Date End Date Status Acetaminophen 325 MG / Hydrocodone Bitartrate 7.5 MG Oral Tablet Acetaminophen 325 MG / Hydrocodone Bitartrate 7.5 MG Oral Tablet 01/10/2014 Active tramadol hydrochloride 50 MG Oral Tablet tramadol hydrochloride 50 MG Oral Tablet 02/11/2017 Active Escitalopram 10 MG Oral Tablet Escitalopram 10 MG Oral Tablet 09/08/2017 Active gabapentin 300 MG Oral Capsule gabapentin 300 MG Oral Capsule 02/11/2017 Active Nortriptyline Nortriptyline 06/01/2017 Active tizanidine 4 MG Oral Tablet tizanidine 4 MG Oral Tablet 01/10/2014 Active Social History Social History Additional Details Category Social Info Options Details zzMigrated Social History Migrated Social History Smoking Status:Never smoked tobacco (finding) Encounters Encounter Location Date Provider Diagnosis [facility] [address] [place] [address] 04/25/2025 Neal Donald [facility] [address] [place] [address] 04/02/2025 Steele Donald Plan Of Treatment No Information Insurance Providers Payer Name Payer Address Payer Phone Subscriber Number Group Number Insured Name Patient Relationship to Insured Coverage Start Date Coverage End Date [facility] [address] [address] [place] [address] [id number] Swetha Richard Self - patient is the insured
--- OUTSIDE RECORDS SUMMARY | 2025-09-10 16:37 | XMS_ITS | Clinical Summary ---
Author Organization [facility] Address [address] [place] [id number] Care Team Providers Care Legal Project Manager Name Role Phone Unavailable Primary Care Provider [...] 2009 Lipid Panel 02/19/2024 02/18/2019 COVID-19 Vaccine (1 - 2023-2 5 season) 2025 Influenza Series (#1) 2025 Meningococcal B Vaccine Aged Out No [...] Cholesterol 171 mg/dL 02/18/2019 6:33 AM CDT [facility] Comment:ADULT INTERVAL: Yohana rable:< 200 mg/dL, [...] 130-159 mg/dL, High >159 mg/dL Blood 02/18/2019 5:5 3 AM CDT 02/18/2019 5:59 AM CDT Narrative [facility] - 02/18/2019 6:33 AM CDT An optional LDL-C goal of less than 70 mg/dL may be considered for patients at high CHD risk. In children and adolescents a desirable LDL serum cholesterol is less than 110 mg/dL. Norma Aomr MD LAB BLOOD ORDERABLES Final Resul t [facility] [address] [phone], from Last 3 Months or Most Recently Relevant to Health Maintenance [place] [address] [address] [place] [address] [employer] Advance Directives * Full Code (Latest Code Status on File) Date Activated Date Inactivated Comments 02/18/2019 4:58 AM 02/18/2019 11:16 PM
[2025-09-10 16:38] VITALS: BP 125/84; PULSE 85; RESP 16; TEMP 37.1; O2SAT 92; BMI 19.7
[2025-09-10 17:15] LABS: Hematocrit 39.3 % (36-47); Hemoglobin 13.00 g/dL (11.27-16.99); Mean Corpuscular HGB Conc 33.1 g/dL (30-55); Mean Corpuscular Hemoglobin 30.4 pg (27-33); Mean Corpuscular Volume 91.8 fl (85-98); Nucleated Red Blood Cells % 0 %; Platelet Count 271 10^3/cmm (157-399); Red Blood Count 4.28 10^6/uL (3.85-5.65); White Blood Count 10.12 10^3/uL (3.29-11.43)
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
--- NOTE | 2025-09-10 17:35 | PC.NURSE ---
Pt was read her 96 hour hold rights at this time with security present
[2025-09-10 17:38] LABS: Glucose Urine UA Negative (Normal); Nitrate Urine Negative (Negative); Specific Gravity, Urine 1.003 (1.005-1.030)
[2025-09-10 17:40] LABS: HCG Qualitative Urine. Negative (Negative)
[2025-09-10 17:44] LABS: PCP Screen Urine Negative (Negative)
[2025-09-10 17:45] LABS: Add Urine Microscopic? YES
[2025-09-10 17:46] LABS: Acetaminophen < 5.0 ug/mL (10-30); Alanine Aminotransferase 10 U/L (0-33); Albumin Level 4.6 g/dL (3.5-5.2); Alcohol Level < 10 mg/dL (0-10); Alkaline Phosphatase 48 U/L (35-105); Anion Gap 20.5 (5-19); Aspartate Amino Transferase 12 U/L (0-32); Blood Urea Nitrogen 14 mg/dL (6-20); Calcium 9.5 mg/dL (8.5-10.5); Carbon Dioxide 22 mmol/L (22-29); Chloride 103 mmol/L (98-107); Globulin 2.7 g/dL (1.3-4.6); Glucose 96 mg/dL (65-115); Osmolality Calculated 292 mOsm/kg (285-295); Potassium 4.5 mmol/L (3.5-5.1); Salicylate < 0.3 mg/dL (3-10); Sodium 141 mmol/L (136-145); Thyroid Stimulating Hormone 1.07 uIU/mL (0.27-4.20); Total Protein 7.3 g/dL (6.6-8.7)
[2025-09-10] MEDS: LORazepam 2 mg/mL INJ 1 mL IM (17:58)
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
[2025-09-10 19:24] VITALS: BP 109/64; PULSE 65; RESP 16; O2SAT 98
[2025-09-10 19:35] VITALS: BP 115/75; PULSE 64; RESP 17; TEMP 36.4; O2SAT 99
[2025-09-10 20:31] VITALS: BP 115/75; PULSE 64; RESP 17; TEMP 36.4; O2SAT 99
--- NOTE | 2025-09-11 01:45 | PC.NURSE ---
pt walked to the bathroom by herself and when pt came out of the bathroom she yelled that she needed her prescribed walker. this MANOMETER TECHNICIAN went to talk to the pt and asked her to be quiet as other pts are sleeping. pt then tells this MANOMETER TECHNICIAN to call and have someone to bring her walker to her and that she is Ed Uribe and that she so that means she needs her walker. This MANOMETER TECHNICIAN reported this to the MECHANICAL PROCESS ENGINEER and the MECHANICAL PROCESS ENGINEER went to talk to the pt. Charge notified.
--- NOTE | 2025-09-11 06:29 | PC.NURSE ---
vs not colleted resp 16 charge notified
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
[2025-09-11 09:47] VITALS: BP 124/91; PULSE 117; RESP 16; TEMP 36.9; O2SAT 100
[2025-09-11 14:00] VITALS: BP 148/73; PULSE 130; RESP 16; TEMP 37.2; O2SAT 97
[2025-09-11] MEDS: MELATONIN 3 MG TABLET 9 MG PO (20:26)
[2025-09-11 21:19] VITALS: BP 109/58; PULSE 89; RESP 19; TEMP 37.1; O2SAT 100
[2025-09-12 06:00] VITALS: BP 115/68; PULSE 73; RESP 19; TEMP 37.1; O2SAT 98
[2025-09-12] MEDS: multivitamin therapeutic Tablet 1 TAB PO (10:20)
--- NOTE | 2025-09-12 13:27 | P.NPUPN_ITS ---
Subjective NPU 2 Subjective: Patient presented today reporting that things are going okay. However she continued to have extended rants and be mostly out of control leading her to being switched to room 170 in hopes of getting her less stimulation. She continued to refuse any need for any medications reporting that she just needs natural remedies. We discussed the fact that we would submit her 21-day hold paperwork early so that we can move forward with more effective treatment. Mental Status Exam 2 MSE Comments: This is a well-nourished well-developed white female in hospital scrubs with limited grooming and eye contact. No abnormal movements except for significant psychomotor agitation. Uncooperative with exam in moderate to severe distress. Speech was increased rate and volume. At times she was pressured. Mood described as fine and not needing to be on a psychiatric unit, but affect manic and somewhat irritable. Thought process linear at times but quite disorganized at others. Thought content: Patient denied suicidal or homicidal ideation, there were no delusions reported but she clearly had paranoid, persecutory and significant grandiose ideations and delusions, she did not report any auditory or visual hallucinations. Attention and concentration were limited and memory was unreliable, but none were formally tested. She was alert and oriented to person and place. Insight, judgment and impulse control are all impaired. Vitals/I&O/Wt Last Vital Signs Temp 98.8 F 09/12/25 06:00 Pulse 73 09/12/25 06:00 Resp 19 H 09/12/25 06:00 BP 115/68 09/12/25 06:00 Pulse Ox 98 09/12/25 06:00 O2 Del Method Room Air 09/12/25 06:00 Weight last 48 hrs Weight 52.163 kg Data NPU 09/10/25 17:05 09/10/25 17:05 A&P Assessment and plan 1. 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 1. Encourage initiation of an antipsychotic. 2. Continue every 15 minute checks for safety. 3. Encourage individual, group and milieu therapies. 4. Will encourage trial of medication with a possible long acting injectable possibility. 5. We will evaluate against the backdrop of the 96-hour hold. File for 21-day hold. 6. Obtain collateral information. 7. Encouraged sober living treatment after discharge at the highest level of care to which she is willing to commit. Concerns that cannabis is either exacerbating or a cause of her clear forward psychosis. PDMP PDMP Reviewed: Not Reviewed Involuntary Hold Information 2 Hold Status: Legal Status: 96 Hour Hold Date/Time Hold Expires: 1 11/16/24@17:15 Attestations NPU 2 Medical Necessity Statement*: Inpatient hospitalization is medically necessary and the clinically appropriate intervention at this time. We will monitor medications and make changes as indicated. Patient will be in the hospital for over two midnights. Likely length of stay 7-10 days. Likely need for 21 day hold. Coding Level of Care Code Acute Code for Chg Fwd Diagnoses Acute psychosis F23
[2025-09-12] MEDS: blistex lip oint 7 gm Tube 1 APPLIC TOPICAL (13:57)
[2025-09-12 14:00] VITALS: BP 143/91; PULSE 100; RESP 15; TEMP 37.5; O2SAT 97
[2025-09-12 20:25] VITALS: BP 118/70; PULSE 85; RESP 17; TEMP 37.3; O2SAT 97
[2025-09-12] MEDS: MELATONIN 3 MG TABLET 9 MG PO (20:25)
--- NOTE | 2025-09-13 04:27 | PC.NURSE ---
Patient presents very somatic. She is C/O discomfort in her upper left arm and states it is R/T the injection that she received in the E.D. She also states that this is causing intermittent upper chest discomfort. When offered medication for anxiety / discomfort she refuses them because they are not HOMEOPATHIC . Patient was given warm Cinnamon tea of which she stated it made her feel better. However, this has not swayed her somatic behavior.
[2025-09-13 06:00] VITALS: BP 124/88; PULSE 76; RESP 18; TEMP 37.1; O2SAT 99
--- NOTE | 2025-09-13 12:07 | P.NPUPN_ITS ---
Subjective NPU 2 Subjective: Patient presented today reporting that she is doing all right. She continues to be delusional per staff reports and direct observation additionally she was reportedly very somatically preoccupied having multiple somatic complaints discussing wanting to be transferred but denying any desire to have anybody use any nonnatural substances for her. We discussed that we filed a 21-day hold and will be seeking to restart her medications and that she would benefit from going ahead and restarting her medications now so that her stay does not have to be extended. Mental Status Exam 2 MSE Comments: This is a well-nourished well-developed white female in hospital scrubs with limited grooming and eye contact. No abnormal movements except for significant psychomotor agitation. Uncooperative with exam in moderate to severe distress. Speech was increased rate and volume. At times she was pressured. Mood described as fine and not needing to be on a psychiatric unit, but affect manic and somewhat irritable. Thought process linear at times but quite disorganized at others. Thought content: Patient denied suicidal or homicidal ideation, there were no delusions reported but she clearly had paranoid, persecutory and significant grandiose ideations and delusions, she did not report any auditory or visual hallucinations. Attention and concentration were limited and memory was unreliable, but none were formally tested. She was alert and oriented to person and place. Insight, judgment and impulse control are all impaired. Vitals/I&O/Wt Last Vital Signs Temp 98.7 F 09/13/25 06:00 Pulse 76 09/13/25 06:00 Resp 18 09/13/25 06:00 BP 124/88 09/13/25 06:00 Pulse Ox 99 09/13/25 06:00 O2 Del Method Room Air 09/13/25 06:00 Data NPU 09/10/25 17:05 09/10/25 17:05 A&P Assessment and plan 1. Acute psychosis: Plan: This is a 45-year-old white female who is known to this web content writer [facility] psychiatry through inpatient and crisis services and presents with significant psychosis, paranoia, delusions and grandiosity off of her medications reporting she is taking natural remedies. 1. Encourage initiation of an antipsychotic. 2. Continue every 15 minute checks for safety. 3. Encourage individual, group and milieu therapies. 4. Will encourage trial of medication with a possible long acting injectable possibility. 5. We will evaluate against the backdrop of the 96-hour hold. Filed for 21-day hold. 6. Obtain collateral information. 7. Encouraged sober living treatment after discharge at the highest level of care to which she is willing to commit. Concerns that cannabis is either exacerbating or a cause of her clear forward psychosis. PDMP PDMP Reviewed: Not Reviewed Involuntary Hold Information 2 Hold Status: Legal Status: 96 Hour Hold Date/Time Hold Expires: 1 11/16/24@17:15 Attestations NPU 2 Medical Necessity Statement*: Inpatient hospitalization is medically necessary and the clinically appropriate intervention at this time. We will monitor medications and make changes as indicated. Patient will be in the hospital for over two midnights. Likely length of stay 7-10 days. Likely need for 21 day hold. Coding Level of Care Code Acute Code for Chg Fwd Diagnoses Acute psychosis F23
[2025-09-13] MEDS: multivitamin therapeutic Tablet 1 TAB PO (12:11)
[2025-09-13 12:59] VITALS: PULSE 92; TEMP 37.3
[2025-09-13 14:00] VITALS: BP 137/96; PULSE 78; RESP 18; TEMP 37.1; O2SAT 100
[2025-09-13] MEDS: LORazepam 2 mg/mL INJ 1 mL IM (17:19)
[2025-09-13] MEDS: haloperidol inj 5 mg/mL INJ 1 mL IM (17:19)
[2025-09-13] MEDS: diphenhydrAMINE 50 mg/mL SDV 1mL IM (17:20)
[2025-09-13 20:21] VITALS: RESP 14
--- NOTE | 2025-09-13 20:21 | PC.NURSE ---
vitals not done per nurse, resp 16
[2025-09-14 06:00] VITALS: RESP 12
--- NOTE | 2025-09-14 06:45 | PC.NURSE ---
vitals not done per nurse, resp 12
[2025-09-14] MEDS: multivitamin therapeutic Tablet 1 TAB PO (08:56)
[2025-09-14] MEDS: LORazepam 2 mg/mL INJ 1 mL IM (10:30)
[2025-09-14] MEDS: diphenhydrAMINE 50 mg/mL SDV 1mL IM (10:30)
[2025-09-14] MEDS: haloperidol inj 5 mg/mL INJ 1 mL IM (10:30)
--- NOTE | 2025-09-14 10:49 | PC.NURSE ---
Patient was at the nurse station yelling at staff. Patient states I'm [place] and something to the effect that she had a stroke on her face. Patient speaking to security and myself. She is having flight of ideas and pressured speech at times. Attempt to redirect patient without success. 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 Patient given written information over Haldol.
--- NOTE | 2025-09-14 11:56 | PC.NURSE ---
Pt. ambulating behind wheelchair down the [address]a.
[2025-09-14 14:00] VITALS: BP 134/78; PULSE 76; RESP 17; TEMP 36.8; O2SAT 100
--- NOTE | 2025-09-14 14:45 | P.NPUPN_ITS ---
Subjective NPU 2 Subjective: Patient presented today reporting that she is doing all right. She endorses the fact that she does not need any medication and just needs to do her natural remedies. However we discussed that her natural marijuana is likely contributing to this unfortunate situation and that the likelihood is that she will not be able to proceed forward with HIPAA taking medication and ultimately exploring abstinence from cannabis. Mental Status Exam 2 MSE Comments: This is a well-nourished well-developed white female in hospital scrubs with limited grooming and eye contact. No abnormal movements except for significant psychomotor agitation. Uncooperative with exam in moderate to severe distress. Speech was increased rate and volume. At times she was pressured. Mood described as fine and not needing to be on a psychiatric unit, but affect manic and somewhat irritable. Thought process linear at times but quite disorganized at others. Thought content: Patient denied suicidal or homicidal ideation, there were no delusions reported but she clearly had paranoid, persecutory and significant grandiose ideations and delusions, she did not report any auditory or visual hallucinations. Attention and concentration were limited and memory was unreliable, but none were formally tested. She was alert and oriented to person and place. Insight, judgment and impulse control are all impaired. Vitals/I&O/Wt Last Vital Signs Temp 98.8 F 09/13/25 14:00 Pulse 78 09/13/25 14:00 Resp 12 09/14/25 06:00 BP 137/96 09/13/25 14:00 Pulse Ox 100 09/13/25 14:00 O2 Del Method Room Air 09/13/25 14:00 Data NPU 09/10/25 17:05 09/10/25 17:05 A&P Assessment and plan 1. Acute psychosis: Plan: This is a 45-year-old white female who is known to this staff writer [facility] psychiatry through inpatient and crisis services and presents with significant psychosis, paranoia, delusions and grandiosity off of her medications reporting she is taking natural remedies. 1. Encourage initiation of an antipsychotic. 2. Continue every 15 minute checks for safety. 3. Encourage individual, group and milieu therapies. 4. Will encourage trial of medication with a possible long acting injectable possibility. 5. We will evaluate against the backdrop of the 96-hour hold. Filed for 21-day hold. 6. Obtain collateral information. 7. Encouraged sober living treatment after discharge at the highest level of care to which she is willing to commit. Concerns that cannabis is either exacerbating or a cause of her clear forward psychosis. PDMP PDMP Reviewed: Not Reviewed Involuntary Hold Information 2 Hold Status: Legal Status: 96 Hour Hold Date/Time Hold Expires: 1 11/16/24@17:15 Attestations NPU 2 Medical Necessity Statement*: Inpatient hospitalization is medically necessary and the clinically appropriate intervention at this time. We will monitor medications and make changes as indicated. Patient will be in the hospital for over two midnights. Likely length of stay 7-10 days. Likely need for 21 day hold. Coding Level of Care Code Acute Code for Chg Fwd Diagnoses Acute psychosis F23
--- NOTE | 2025-09-14 22:34 | PC.NURSE ---
pt refused vs nurse notified resp 16
--- NOTE | 2025-09-15 06:50 | PC.NURSE ---
pt refused weight and vs resp 17
--- NOTE | 2025-09-15 08:00 | PC.NURSE ---
Patient at the nurses station verbally escalated. She has been intrusive with another patient on the unit. 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 She is requesting medication for restlessness. I offered to give her a PRN and she said the only medicine she will take is melatonin.
[2025-09-15] MEDS: multivitamin therapeutic Tablet 1 TAB PO (10:58)
[2025-09-15] MEDS: LORazepam 2 mg/mL INJ 1 mL IM (11:30)
[2025-09-15] MEDS: diphenhydrAMINE 50 mg/mL SDV 1mL IM (11:30)
[2025-09-15] MEDS: haloperidol inj 5 mg/mL INJ 1 mL IM (11:30)
--- NOTE | 2025-09-15 11:31 | PC.NURSE ---
Pt was yelling out at staff from inside her room multiple times about multiple delusional topics. Pt also yelled out at other patients from inside her room, which was upsetting some of the other patients walking the hallway. Pt denied all PO medications offered to her. Pt received an IM B-52 into her left deltoid by charge nurse w/ saundra RN & a PRINTING SERVICES COORDINATOR present. Pt yelled at staff but willingly took the injections. Pt continue to shout from her bed as staff left the room.
--- NOTE | 2025-09-15 11:42 | PC.NURSE ---
During shift assessment patient was having loose association. 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 She reports that she has stage 4 melanoma. This RN offered patient an IM injection in the left hip and she states she has renal insufficiency that is connected to her temporal and her heart. She reports that the ER violated her civil rights by giving her non homeopathic medications. She reports that all of the patients here are angels sent by [employer]. She is refusing to take a shower stating that she only takes baths. She continues to verbalize that [employer] and [employer] have been taking from her account and not delivering her food. She states that she is now homeless and is requesting to talk with case management tomorrow. Patient received Haldol 5 mg, lorazepam 2 mg IM in one injection and diphehydramine 50 mg IM in the left deltoid.
--- NOTE | 2025-09-15 14:13 | P.NPUPN_ITS ---
Subjective NPU 2 Subjective: Patient presented today reporting that she is doing all right. She continued to deny any need to be here or take medication endorses the fact that she just needs to do her natural remedies. However we discussed that her natural marijuana is likely contributing to this unfortunate situation and that the likelihood is that she will not be able to proceed forward without taking medication and ultimately will need to be exploring abstinence from cannabis. Mental Status Exam 2 MSE Comments: This is a well-nourished well-developed white female in hospital scrubs with limited grooming and eye contact. No abnormal movements except for significant psychomotor agitation. Uncooperative with exam in moderate to severe distress. Speech was increased rate and volume. At times she was pressured. Mood described as fine and not needing to be on a psychiatric unit, but affect manic and somewhat irritable. Thought process linear at times but quite disorganized at others. Thought content: Patient denied suicidal or homicidal ideation, there were no delusions reported but she clearly had paranoid, persecutory and significant grandiose ideations and delusions, she did not report any auditory or visual hallucinations. Attention and concentration were limited and memory was unreliable, but none were formally tested. She was alert and oriented to person and place. Insight, judgment and impulse control are all impaired. Vitals/I&O/Wt Last Vital Signs Temp 98.3 F 09/14/25 14:00 Pulse 76 09/14/25 14:00 Resp 17 09/14/25 14:00 BP 134/78 09/14/25 14:00 Pulse Ox 100 09/14/25 14:00 O2 Del Method Room Air 09/14/25 14:00 Data NPU 09/10/25 17:05 09/10/25 17:05 A&P Assessment and plan 1. Acute psychosis: Plan: This is a 45-year-old white female who is known to this creative writer [facility] psychiatry through inpatient and crisis services and presents with significant psychosis, paranoia, delusions and grandiosity off of her medications reporting she is taking natural remedies. 1. Encourage initiation of an antipsychotic. 2. Continue every 15 minute checks for safety. 3. Encourage individual, group and milieu therapies. 4. Will encourage trial of medication with a possible long acting injectable possibility. 5. We will evaluate against the backdrop of the 96-hour hold. Filed for 21-day hold. 6. Obtain collateral information. 7. Encouraged sober living treatment after discharge at the highest level of care to which she is willing to commit. Concerns that cannabis is either exacerbating or a cause of her clear forward psychosis. PDMP PDMP Reviewed: Not Reviewed Involuntary Hold Information 2 Hold Status: Legal Status: 96 Hour Hold Date/Time Hold Expires: 1 11/16/24@17:15 Attestations NPU 2 Medical Necessity Statement*: Inpatient hospitalization is medically necessary and the clinically appropriate intervention at this time. We will monitor medications and make changes as indicated. Patient will be in the hospital for over two midnights. Likely length of stay 7-10 days. Likely need for 21 day hold. Coding Level of Care Code Acute Code for Shortyg Fwd Diagnoses Acute psychosis F23
--- NOTE | 2025-09-15 22:19 | PC.NURSE ---
pt refused vs, nurse notified, resp 16
--- NOTE | 2025-09-16 06:49 | PC.NURSE ---
pt refused vs, nurse notified, resp 17
[2025-09-16] MEDS: multivitamin therapeutic Tablet 1 TAB PO (08:13)
--- NOTE | 2025-09-16 12:13 | PC.NURSE ---
cout [address]
--- NOTE | 2025-09-16 13:07 | PC.NURSE ---
Pt back from [address]
[2025-09-16 14:00] VITALS: RESP 16
--- NOTE | 2025-09-16 14:35 | P.NPUPN_ITS ---
Subjective NPU 2 Subjective: Patient presented today reporting that she does not need medication and discussing all the studies she is done to show that medications are more harmful than good excetra. We discussed the court finding and the fact that we have now been authorized to treat as his medically appropriate and with his level of psychosis and circumstances of her situation moving forward with medication as appropriate. We discussed the risks, benefits and alternatives of a trial of Abilify and she understood and agreed to proceed as is documented in his note. She was given information on Abilify including its possible side effects in writing. Mental Status Exam 2 MSE Comments: This is a well-nourished well-developed white female in hospital scrubs with limited grooming and eye contact. No abnormal movements except for significant psychomotor agitation. Uncooperative with exam in moderate to severe distress. Speech was increased rate and volume. At times she was pressured. Mood described as fine and not needing to be on a psychiatric unit, but affect manic and somewhat irritable. Thought process linear at times but quite disorganized at others. Thought content: Patient denied suicidal or homicidal ideation, there were no delusions reported but she clearly had paranoid, persecutory and significant grandiose ideations and delusions, she did not report any auditory or visual hallucinations. Attention and concentration were limited and memory was unreliable, but none were formally tested. She was alert and oriented to person and place. Insight, judgment and impulse control are all impaired. Vitals/I&O/Wt Last Vital Signs Temp 98.3 F 09/14/25 14:00 Pulse 76 09/14/25 14:00 Resp 17 09/14/25 14:00 BP 134/78 09/14/25 14:00 Pulse Ox 100 09/14/25 14:00 O2 Del Method Room Air 09/14/25 14:00 Data NPU 09/10/25 17:05 09/10/25 17:05 A&P Assessment and plan 1. Acute psychosis: Plan: This is a 45-year-old white female who is known to this promotion writer [facility] psychiatry through inpatient and crisis services and presents with significant psychosis, paranoia, delusions and grandiosity off of her medications reporting she is taking natural remedies. 1. Started Abilify 10 mg p.o. daily. 2. Continue every 15 minute checks for safety. 3. Encourage individual, group and milieu therapies. 4. Will encourage trial of medication with a possible long acting injectable possibility. Discussed forced medication protocol. 5. We will evaluate against the backdrop of the 96-hour hold. Patient placed on a 21-day hold. 6. Obtain collateral information. 7. Encouraged sober living treatment after discharge at the highest level of care to which she is willing to commit. Concerns that cannabis is either exacerbating or a cause of her clear forward psychosis. PDMP PDMP Reviewed: Not Reviewed Involuntary Hold Information 2 Hold Status: Legal Status: 96 Hour Hold Date/Time Hold Expires: 10/07/2025 Attestations NPU 2 Medical Necessity Statement*: Inpatient hospitalization is medically necessary and the clinically appropriate intervention at this time. We will monitor medications and make changes as indicated. Patient will be in the hospital for over two midnights. Likely length of stay 7-10 days. Likely need for 21 day hold. Coding Level of Care Code Acute Code for Chg Fwd Diagnoses Acute psychosis F23
[2025-09-16 20:09] VITALS: BP 124/75; PULSE 82; RESP 18; TEMP 36.6; O2SAT 100
[2025-09-16] MEDS: MELATONIN 3 MG TABLET 9 MG PO (20:19)
[2025-09-16] MEDS: blistex lip oint 7 gm Tube 1 APPLIC TOPICAL (23:14)
[2025-09-17 06:00] VITALS: BP 114/72; PULSE 109; RESP 18; TEMP 37.2; O2SAT 99
[2025-09-17] MEDS: multivitamin therapeutic Tablet 1 TAB PO (08:10)
--- NOTE | 2025-09-17 08:11 | PC.NURSE ---
Pt. rambling on about her rights and the how the lead blender was in on the corruption
--- NOTE | 2025-09-17 09:53 | P.NPUPN_ITS ---
Subjective NPU 2 Subjective: Patient presented today reporting that she is doing fine. She was noted walking around by pulling herself in using her legs pulling herself around by her feet in the wheelchair. We discussed the fact that there has been no evidence that there is any physical ailment that is leading to her not using her legs and body to get around. She disagreed with this. We discussed the fact that she had taken her oral medication which she had been resistant to. She reports that she has done significant research and this medication should never be used with people that have a conditions she reported which included 2 forms of cancer, heart problems needing pig valve or replacement. She reported multiple strokes and TIAs excetra and reported that she should be medicated like a geriatric patient because when they do the scans of her it is always noted that everything is of a greater age, like she should consider having services from a restaurant service manager. She endorsed something being wrong with the medication but could not articulate what that thing was. Mental Status Exam 2 MSE Comments: This is a well-nourished well-developed white female in hospital scrubs with limited grooming and eye contact. No abnormal movements except for significant psychomotor agitation. Uncooperative with exam in moderate to severe distress. Speech was increased rate and volume. At times she was pressured. Mood described as fine and not needing to be on a psychiatric unit, but affect manic and somewhat irritable. Thought process linear at times but quite disorganized at others. Thought content: Patient denied suicidal or homicidal ideation, there were no delusions reported but she clearly had paranoid, persecutory and significant grandiose ideations and delusions, she did not report any auditory or visual hallucinations. Attention and concentration were limited and memory was unreliable, but none were formally tested. She was alert and oriented to person and place. Insight, judgment and impulse control are all impaired. Vitals/I&O/Wt Last Vital Signs Temp 98.9 F 09/17/25 06:00 Pulse 109 H 09/17/25 06:00 Resp 18 09/17/25 06:00 BP 114/72 09/17/25 06:00 Pulse Ox 99 09/17/25 06:00 O2 Del Method Room Air 09/17/25 06:00 Data NPU 09/10/25 17:05 09/10/25 17:05 A&P Assessment and plan 1. Acute psychosis: Plan: This is a 45-year-old white female who is known to this justowriter operator [facility] psychiatry through inpatient and crisis services and presents with significant psychosis, paranoia, delusions and grandiosity off of her medications reporting she is taking natural remedies. 1. Started Abilify 10 mg p.o. daily. Will consider increasing dose tomorrow. 2. Continue every 15 minute checks for safety. 3. Encourage individual, group and milieu therapies. 4. Will encourage trial of medication with a possible long acting injectable possibility. Discussed forced medication protocol. 5. We will evaluate against the backdrop of the 96-hour hold. Patient placed on a 21-day hold. 6. Obtain collateral information. 7. Encouraged sober living treatment after discharge at the highest level of care to which she is willing to commit. Concerns that cannabis is either exacerbating or a cause of her clear forward psychosis. PDMP PDMP Reviewed: Not Reviewed Involuntary Hold Information 2 Hold Status: Legal Status: 96 Hour Hold Date/Time Hold Expires: 10/07/2025 Attestations NPU 2 Medical Necessity Statement*: Inpatient hospitalization is medically necessary and the clinically appropriate intervention at this time. We will monitor medications and make changes as indicated. Patient will be in the hospital for over two midnights. Likely length of stay 7-10 days. Likely need for 21 day hold. Coding Level of Care Code Acute Code for Chg Fwd Diagnoses Acute psychosis F23
--- NOTE | 2025-09-17 12:05 | PC.NURSE ---
Pt. requested her V/S be taken d/t she claims she vomited.
[2025-09-17 12:21] VITALS: BP 155/99; PULSE 104; RESP 18; O2SAT 99
[2025-09-17 20:23] VITALS: BP 124/84; PULSE 89; RESP 16; TEMP 37.2; O2SAT 95
[2025-09-17] MEDS: MELATONIN 3 MG TABLET 9 MG PO (20:37)
[2025-09-18 06:00] VITALS: BP 117/67; PULSE 81; RESP 16; TEMP 36.8; O2SAT 98
[2025-09-18] MEDS: multivitamin therapeutic Tablet 1 TAB PO (07:49)
--- NOTE | 2025-09-18 08:12 | W.PM.NPUPNS ---
Subjective NPU Subjective: Presented today reporting that she is fine. She continued to be resistant to treatment plan. She was on the verge of medication refusal this morning per staff reports. We discussed the importance of the medication which she continued to try to refuse stating her own research and consultation with experts. He continued to be somatically preoccupied per staff reports and direct observation continuing to use the wheelchair reporting inability to ambulate safely and properly which is absent any clinical accuracy. She was reporting all kinds of diseases and concerns. Mental Status Exam MSE Comments: This is a well-nourished well-developed white female in hospital scrubs with limited grooming and eye contact. No abnormal movements except for significant psychomotor agitation. Uncooperative with exam in moderate to severe distress. Speech was increased rate and volume. At times she was pressured. Mood described as fine and not needing to be on a psychiatric unit, but affect manic and somewhat irritable. Thought process linear at times but quite disorganized at others. Thought content: Patient denied suicidal or homicidal ideation, there were no delusions reported but she clearly had paranoid, persecutory and significant grandiose ideations and delusions, she did not report any auditory or visual hallucinations. Attention and concentration were limited and memory was unreliable, but none were formally tested. She was alert and oriented to person and place. Insight, judgment and impulse control are all impaired. Vitals/I&O/Wt Last Vital Signs Temp 98.2 F 09/18/25 06:00 Pulse 81 09/18/25 06:00 Resp 16 09/18/25 06:00 BP 117/67 09/18/25 06:00 Pulse Ox 98 09/18/25 06:00 O2 Del Method Room Air 09/18/25 06:00 Data NPU 09/10/25 17:05 09/10/25 17:05 A&P Assessment and plan 1. Acute psychosis: Plan: This is a 45-year-old white female who is known to this short story writer [facility] psychiatry through inpatient and crisis services and presents with significant psychosis, paranoia, delusions and grandiosity off of her medications reporting she is taking natural remedies. 1. Started Abilify 10 mg p.o. daily. Will consider increasing dose tomorrow. 2. Continue every 15 minute checks for safety. 3. Encourage individual, group and milieu therapies. 4. Will encourage trial of medication with a possible long acting injectable possibility. Discussed forced medication protocol. 5. We will evaluate against the backdrop of the 96-hour hold. Patient placed on a 21-day hold. 6. Obtain collateral information. 7. Encouraged sober living treatment after discharge at the highest level of care to which she is willing to commit. Concerns that cannabis is either exacerbating or a cause of her clear forward psychosis. PDMP PDMP Reviewed: Not Reviewed Involuntary Hold Information Hold Status: Legal Status: 96 Hour Hold Date/Time Hold Expires: 10/07/2025 Attestations NPU Medical Necessity Statement*: Inpatient hospitalization is medically necessary and the clinically appropriate intervention at this time. We will monitor medications and make changes as indicated. Likely length of stay 7-10 days. Coding Level of Care Code Acute Code for Chg Fwd Diagnoses Acute psychosis F23
--- NOTE | 2025-09-18 08:55 | PC.NURSE ---
Pt.'s son had called and said he was going to be busy today and please let her know he would be unable to take her calls today. Pt. then stated that this was weird she has not spoke to her son in years and that there was more to this than it appeared. Signee said to pt. I was just relaying the message and knew nothing more about it. Pt. did give permission to talk to her son if he called about her.
--- NOTE | 2025-09-18 10:58 | PC.NURSE ---
Pt. complained of a migraine in great detail and was offered medication but refused it. Said she just wanted it to be documented that she had a migraine.
[2025-09-18] MEDS: sennosides-docusate Tablet 2 TAB PO (12:29)
[2025-09-18 14:00] VITALS: BP 126/71; PULSE 84; RESP 17; TEMP 36.8; O2SAT 100
--- NOTE | 2025-09-18 14:55 | PC.NURSE ---
Pt. said she needed her toenails cut said she is a diabetic, and that she has some sort of skin cancer on her toes and they are bleeding and this is good because this is how the cancer gets out. Pt. pulled off her socks and pt. did not have any skin issues on her feet other than what appears to be a wart on her right pinky toe that she made no mention of. Pt. then started talking about her brain bleed that is somehow connected to this skin cancer on her toes.
--- NOTE | 2025-09-18 15:34 | PC.NURSE ---
Pt. continues to push her w/c and ambulate behind it.
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
--- NOTE | 2025-09-18 16:49 | PC.NURSE ---
Pt. said her son was taken by her sister at age 14 because pt.'s sister could not have her own child. Pt. is rambling on about Ceasar Cannon and her health, her mother and fathers marriage issues.
[2025-09-18] MEDS: MELATONIN 3 MG TABLET 9 MG PO (19:46)
[2025-09-18 20:11] VITALS: BP 141/90; PULSE 78; RESP 16; TEMP 36.8; O2SAT 97
[2025-09-19 06:00] VITALS: BP 103/65; PULSE 74; RESP 16; TEMP 36.7; O2SAT 98
--- NOTE | 2025-09-19 09:22 | PC.NURSE ---
Pt. started in very early this am about her legal and medical issues. Pt. had been up at the nurses station early this am, but is now refusing to walk up to the nurses station to get her medication.
[2025-09-19] MEDS: multivitamin therapeutic Tablet 1 TAB PO (10:51)
--- NOTE | 2025-09-19 10:56 | PC.NURSE ---
Dr. Drummond gave verbal order for Geodon 20mg IM prn if pt. refuses PO meds.
--- NOTE | 2025-09-19 12:13 | PC.NURSE ---
Pt. saw another pt. was getting an EKG and said they should probably get one on me while there are down here.
--- NOTE | 2025-09-19 13:21 | PC.NURSE ---
Dr. Drummond gave the verbal order to take wheelchair that pt. does not have a need for the wheelchair.
[2025-09-19] MEDS: diphenhydrAMINE 50 mg/mL SDV 1mL IM (13:55)
[2025-09-19] MEDS: haloperidol inj 5 mg/mL INJ 1 mL IM (13:55)
[2025-09-19] MEDS: LORazepam 2 mg/mL INJ 1 mL IM (13:55)
--- NOTE | 2025-09-19 13:56 | PC.NURSE ---
After w/c was removed pt. ambulated up to the nurses station and began yelling rambling on talking. Security was called and pt. was given a B-52. Pt. is still yelling and able to be heard from her room to the nurses station. After B-52 was given pt. continues to yell rambling on about things that do not make since.
[2025-09-19 14:00] VITALS: BP 112/76; PULSE 85; RESP 17; TEMP 37.1; O2SAT 97
--- NOTE | 2025-09-19 15:17 | PC.NURSE ---
Dr. Drummond gave verbal order to increase Abilify to 20mg PO QD. give Abilify 10mg PO once now.
--- NOTE | 2025-09-19 20:26 | P.NPUPN_ITS ---
Subjective NPU 2 Subjective: Patient presented today very irritable per staff reports and direct observation. She had been in a wheelchair for reasons connected to her hyper somatic tendencies and that wheelchair was taken away and she was advised to walk which she is clearly physically capable. This made her quite angry and she essentially went on a at least 30-minute rant about all the conspiracies and persecutory thoughts that she has expressed before as well as some she had not expressed before. We discussed the plan to increase the medication and she once again talked about just about every medical ailment 1 could have been attributed them to herself and labeled the Abilify is being an actual cause of this situation. Mental Status Exam 2 MSE Comments: This is a well-nourished well-developed white female in hospital scrubs with limited grooming and eye contact. No abnormal movements except for significant psychomotor agitation. Uncooperative with exam in moderate to severe distress. Speech was increased rate and volume. At times she was pressured. Mood described as fine and not needing to be on a psychiatric unit, but affect manic and somewhat irritable. Thought process linear at times but quite disorganized at others. Thought content: Patient denied suicidal or homicidal ideation, there were no delusions reported but she clearly had paranoid, persecutory and significant grandiose ideations and delusions, she did not report any auditory or visual hallucinations. Attention and concentration were limited and memory was unreliable, but none were formally tested. She was alert and oriented to person and place. Insight, judgment and impulse control are all impaired. Vitals/I&O/Wt Last Vital Signs Temp 98.8 F 09/19/25 14:00 Pulse 85 09/19/25 14:00 Resp 17 09/19/25 14:00 BP 112/76 09/19/25 14:00 Pulse Ox 97 09/19/25 14:00 O2 Del Method Room Air 09/19/25 14:00 Data NPU 09/10/25 17:05 09/10/25 17:05 A&P Assessment and plan 1. Acute psychosis: Plan: This is a 45-year-old white female who is known to this communications writer [facility] psychiatry through inpatient and crisis services and presents with significant psychosis, paranoia, delusions and grandiosity off of her medications reporting she is taking natural remedies. 1. Started Abilify 10 mg p.o. daily. Increase Abilify to 20 mg p.o. daily. 2. Continue every 15 minute checks for safety. 3. Encourage individual, group and milieu therapies. 4. Will encourage trial of medication with a possible long acting injectable possibility. Discussed forced medication protocol. With 20 mg of Geodon IM for any refused doses of Abilify. 5. We will evaluate against the backdrop of the 96-hour hold. Patient placed on a 21-day hold. 6. Obtain collateral information. 7. Encouraged sober living treatment after discharge at the highest level of care to which she is willing to commit. Concerns that cannabis is either exacerbating or a cause of her clear forward psychosis. PDMP PDMP Reviewed: Not Reviewed Involuntary Hold Information 2 Hold Status: Legal Status: 96 Hour Hold Date/Time Hold Expires: 10/07/2025 Attestations NPU 2 Medical Necessity Statement*: Inpatient hospitalization is medically necessary and the clinically appropriate intervention at this time. We will monitor medications and make changes as indicated. Likely length of stay 7-10 days. Coding Level of Care Code Acute Code for Chg Fwd Diagnoses Acute psychosis F23
[2025-09-19] MEDS: MELATONIN 3 MG TABLET 9 MG PO (21:16)
--- NOTE | 2025-09-19 22:22 | PC.NURSE ---
due to previous medication pt was somulant and refused, resp 16, nurse notified
[2025-09-20 06:00] VITALS: BP 87/57; PULSE 96; RESP 16; TEMP 37.3; O2SAT 99
--- NOTE | 2025-09-20 07:50 | P.NPUPN_ITS ---
Subjective NPU 2 Subjective: Patient presented today reporting that things are not good. She discussed the fact that she has all these conditions including cancers, CVAs, heart problems and heart valve problems, inability to walk excetra. There is no physical validation of her claims and she continued to take her medication and her forced medication protocol. However, she denies that the medications are helpful and only reports them exacerbating her list of physical conditions. Mental Status Exam 2 MSE Comments: This is a well-nourished well-developed white female in hospital scrubs with limited grooming and eye contact. No abnormal movements except for significant psychomotor agitation. Uncooperative with exam in moderate to severe distress. Speech was increased rate and volume. At times she was pressured. Mood described as fine and not needing to be on a psychiatric unit, but affect manic and somewhat irritable. Thought process linear at times but quite disorganized at others. Thought content: Patient denied suicidal or homicidal ideation, there were no delusions reported but she clearly had paranoid, persecutory and significant grandiose ideations and delusions, she did not report any auditory or visual hallucinations. Attention and concentration were limited and memory was unreliable, but none were formally tested. She was alert and oriented to person and place. Insight, judgment and impulse control are all impaired. Vitals/I&O/Wt Last Vital Signs Temp 99.2 F 09/20/25 06:00 Pulse 96 09/20/25 06:00 Resp 16 09/20/25 06:00 BP 87/57 09/20/25 06:00 Pulse Ox 99 09/20/25 06:00 O2 Del Method Room Air 09/20/25 06:00 Data NPU 09/10/25 17:05 09/10/25 17:05 A&P Assessment and plan 1. Acute psychosis: Plan: This is a 45-year-old white female who is known to this filing writer [facility] psychiatry through inpatient and crisis services and presents with significant psychosis, paranoia, delusions and grandiosity off of her medications reporting she is taking natural remedies. 1. Started Abilify 10 mg p.o. daily. Increased Abilify to 20 mg p.o. daily. 2. Continue every 15 minute checks for safety. 3. Encourage individual, group and milieu therapies. 4. Will encourage trial of medication with a possible long acting injectable possibility. Discussed forced medication protocol. With 20 mg of Geodon IM for any refused doses of Abilify. 5. We will evaluate against the backdrop of the 96-hour hold. Patient placed on a 21-day hold. 6. Obtain collateral information. 7. Encouraged sober living treatment after discharge at the highest level of care to which she is willing to commit. Concerns that cannabis is either exacerbating or a cause of her clear forward psychosis. 8. Patient's wheelchair was taken from her given there is no indications of any physical limitations but only her somatic delusional content. She was very upset by the change and struggled with interacting with anyone after the change. PDMP PDMP Reviewed: Not Reviewed Involuntary Hold Information 2 Hold Status: Legal Status: 96 Hour Hold Date/Time Hold Expires: 10/07/2025 Attestations NPU 2 Medical Necessity Statement*: Inpatient hospitalization is medically necessary and the clinically appropriate intervention at this time. We will monitor medications and make changes as indicated. Likely length of stay 7-10 days. Coding Level of Care Code Acute Code for Chg Fwd Diagnoses Acute psychosis F23
[2025-09-20] MEDS: multivitamin therapeutic Tablet 1 TAB PO (08:50)
[2025-09-20 14:00] VITALS: BP 120/62; PULSE 88; RESP 18; TEMP 37.2; O2SAT 98
[2025-09-20] MEDS: sennosides-docusate Tablet 2 TAB PO (14:53)
[2025-09-20 20:07] VITALS: BP 116/74; PULSE 75; RESP 18; TEMP 36.9; O2SAT 99
[2025-09-20] MEDS: MELATONIN 3 MG TABLET 9 MG PO (20:53)
[2025-09-20] MEDS: blistex lip oint 7 gm Tube 1 APPLIC TOPICAL (22:01)
--- NOTE | 2025-09-21 02:19 | PC.NURSE ---
Patient came to nurses station C/O lower extremity weakness ; stating that if she did not get the use of a wheelchair or at least a walker I can promise I will be falling down! . She was able to ambulate from her room (153) to the bench outside the nurses station with no assistance short of remaining next to the wall. I did assist her back to her room (GIVEN THE PREVIOUS STATEMENT r/t FALLING.) I also suggested she talk to provider about an additional Physical Therapy consult to better evaluate her needs.
[2025-09-21 06:00] VITALS: BP 114/76; PULSE 82; RESP 188; TEMP 36.8; O2SAT 99
[2025-09-21] MEDS: multivitamin therapeutic Tablet 1 TAB PO (08:29)
--- NOTE | 2025-09-21 09:32 | PC.NURSE ---
Patient request for senna d/t constipation and request IBU for generalized body aches. Patient reports that you need to call Jon at [facility]. Shes on the wall and takes care of my brain bleed and neuropathways.Patient reports that her family has requested crisis intervention because of her. This RN has offered patient a shower and she continues to refuse and reports that she takes baths only.
[2025-09-21] MEDS: sennosides-docusate Tablet 2 TAB PO (09:48)
--- NOTE | 2025-09-21 11:10 | P.NPUPN_ITS ---
Subjective NPU 2 Subjective: Patient presented today reporting that she is doing all right. We discussed the fact that she had quite a different affect today as she smiled through the entire interview which was the first time she had smiled during the time she has been in the hospital. She could give no answer for what the change was directed by but she was fairly pleasant per staff report and direct observation and reported that she should not be on the medication and did not needed but did not have irritability or anger surrounding those statements. Mental Status Exam 2 MSE Comments: This is a well-nourished well-developed white female in hospital scrubs with limited grooming and eye contact. No abnormal movements. Uncooperative with exam in mild distress. Speech was more normal rate and volume. Mood described as fine and not needing to be on a psychiatric unit, but affect was much less manic and more positive as she spent the entire interview smiling. Thought process linear at times but quite disorganized at others. Thought content: Patient denied suicidal or homicidal ideation, there were no delusions reported but she clearly had paranoid, persecutory and significant grandiose ideations and delusions, she did not report any auditory or visual hallucinations. Attention and concentration were limited and memory was unreliable, but none were formally tested. She was alert and oriented to person and place. Insight, judgment and impulse control are all impaired. Vitals/I&O/Wt Last Vital Signs Temp 98.3 F 09/21/25 06:00 Pulse 82 09/21/25 06:00 Resp 188 H 09/21/25 06:00 BP 114/76 09/21/25 06:00 Pulse Ox 99 09/21/25 06:00 O2 Del Method Room Air 09/21/25 06:00 Data NPU 09/10/25 17:05 09/10/25 17:05 A&P Assessment and plan 1. Acute psychosis: Plan: This is a 45-year-old white female who is known to this script writer [facility] psychiatry through inpatient and crisis services and presents with significant psychosis, paranoia, delusions and grandiosity off of her medications reporting she is taking natural remedies. 1. Started Abilify 10 mg p.o. daily. Increased Abilify to 20 mg p.o. daily. 2. Continue every 15 minute checks for safety. 3. Encourage individual, group and milieu therapies. 4. Will encourage trial of medication with a possible long acting injectable possibility. Discussed forced medication protocol. With 20 mg of Geodon IM for any refused doses of Abilify. 5. We will evaluate against the backdrop of the 96-hour hold. Patient placed on a 21-day hold. 6. Obtain collateral information. 7. Encouraged sober living treatment after discharge at the highest level of care to which she is willing to commit. Concerns that cannabis is either exacerbating or a cause of her clear forward psychosis. 8. Patient's wheelchair was taken from her given there is no indications of any physical limitations but only her somatic delusional content. She was very upset by the change and struggled with interacting with anyone after the change. PDMP PDMP Reviewed: Not Reviewed Involuntary Hold Information 2 Hold Status: Legal Status: 96 Hour Hold Date/Time Hold Expires: 10/07/2025 Attestations NPU 2 Medical Necessity Statement*: Inpatient hospitalization is medically necessary and the clinically appropriate intervention at this time. We will monitor medications and make changes as indicated. Likely length of stay 7-10 days. Coding Level of Care Code Acute Code for Chg Fwd Diagnoses Acute psychosis F23
[2025-09-21 14:28] VITALS: BP 120/75; PULSE 86; RESP 16; TEMP 37.1; O2SAT 99
[2025-09-21 20:59] VITALS: BP 129/73; PULSE 74; RESP 19; TEMP 37; O2SAT 98
[2025-09-21] MEDS: MELATONIN 3 MG TABLET 9 MG PO (21:54)
[2025-09-22 06:00] VITALS: BP 115/76; PULSE 79; RESP 16; TEMP 36.8; O2SAT 98; BMI 21.7
--- NOTE | 2025-09-22 08:06 | P.NPUPN_ITS ---
Subjective NPU 2 Subjective: Patient presented today reporting that things are going okay. She acknowledged that she is doing better and was managing having a roommate better. Earlier she was seeming to be in a much better mood but then later she started having difficulties with some of her standard delusions per staff reports and direct observation. She continues to deny need for other medication and we discussed the possibility that we would need. Increased her Abilify. Mental Status Exam 2 MSE Comments: This is a well-nourished well-developed white female in hospital scrubs with limited grooming and eye contact. No abnormal movements. Uncooperative with exam in mild distress. Speech was more normal rate and volume. Mood described as fine and not needing to be on a psychiatric unit, but affect was much less manic and more positive as she continued to have smiling with her primary facial expression. Thought process linear at times but quite disorganized at others. Thought content: Patient denied suicidal or homicidal ideation, there were no delusions reported but she clearly had paranoid, persecutory and significant grandiose ideations and delusions, she did not report any auditory or visual hallucinations. Attention and concentration were limited and memory was unreliable, but none were formally tested. She was alert and oriented to person and place. Insight, judgment and impulse control are all impaired. Vitals/I&O/Wt Last Vital Signs Temp 98.3 F 09/22/25 06:00 Pulse 79 09/22/25 06:00 Resp 16 09/22/25 06:00 BP 115/76 09/22/25 06:00 Pulse Ox 98 09/22/25 06:00 O2 Del Method Room Air 09/22/25 06:00 Weight last 48 hrs Weight 57.323 kg Data NPU 09/10/25 17:05 09/10/25 17:05 A&P Assessment and plan 1. Acute psychosis: Plan: This is a 45-year-old white female who is known to this consumer loan underwriter [facility] psychiatry through inpatient and crisis services and presents with significant psychosis, paranoia, delusions and grandiosity off of her medications reporting she is taking natural remedies. 1. Started Abilify 10 mg p.o. daily. Increased Abilify to 20 mg p.o. daily. Consider increase to 30 mg. 2. Continue every 15 minute checks for safety. 3. Encourage individual, group and milieu therapies. 4. Will encourage trial of medication with a possible long acting injectable possibility. Discussed forced medication protocol. With 20 mg of Geodon IM for any refused doses of Abilify. 5. We will evaluate against the backdrop of the 96-hour hold. Patient placed on a 21-day hold. 6. Obtain collateral information. 7. Encouraged sober living treatment after discharge at the highest level of care to which she is willing to commit. Concerns that cannabis is either exacerbating or a cause of her clear forward psychosis. 8. Patient's wheelchair was taken from her given there is no indications of any physical limitations but only her somatic delusional content. She was very upset by the change and struggled with interacting with anyone after the change. PDMP PDMP Reviewed: Not Reviewed Involuntary Hold Information 2 Hold Status: Legal Status: 96 Hour Hold Date/Time Hold Expires: 10/07/2025 Attestations NPU 2 Medical Necessity Statement*: Inpatient hospitalization is medically necessary and the clinically appropriate intervention at this time. We will monitor medications and make changes as indicated. Likely length of stay 7-10 days. Coding Level of Care Code Acute Code for Chg Fwd Diagnoses Acute psychosis F23
[2025-09-22] MEDS: multivitamin therapeutic Tablet 1 TAB PO (08:34)
--- NOTE | 2025-09-22 10:30 | PC.NURSE ---
Pt. sent her roommate to the nurses station window for her request.
--- NOTE | 2025-09-22 11:06 | PC.NURSE ---
Pt. today talking about [employer] and the FBI and some man's name. Pt. not making any since.
[2025-09-22 14:00] VITALS: BP 126/85; PULSE 85; RESP 16; TEMP 36.9; O2SAT 99
[2025-09-22 19:41] VITALS: BP 112/74; PULSE 65; RESP 18; TEMP 36.7; O2SAT 99
[2025-09-22] MEDS: MELATONIN 3 MG TABLET 9 MG PO (20:35)
--- NOTE | 2025-09-23 03:13 | PC.NURSE ---
Repeatedly summoning nsg to request various tasks that don't align. Attempting to console/ assist as able.
[2025-09-23 04:36] VITALS: BP 132/78; PULSE 63; RESP 18; TEMP 36.7; O2SAT 100
[2025-09-23] MEDS: multivitamin therapeutic Tablet 1 TAB PO (08:39)
--- NOTE | 2025-09-23 08:58 | PC.NURSE ---
MED PT REFUSED HER AMPLIFY THIS MORNING, WILL CONTIUE TO MONITOR.
[2025-09-23 14:00] VITALS: BP 117/78; PULSE 75; RESP 16; TEMP 37.1; O2SAT 99
--- NOTE | 2025-09-23 15:23 | P.NPUPN_ITS ---
Subjective NPU 2 Subjective: 45-year-old female with psychosis admitt ed for unusual behavior and active psychosis. Patient continued to report that she had felt that she was being religiously persecuted. She had stated that she was curious about whether she needed to be here and questioned whether somehow others were keeping her here. She continued to be irritable and continued to rant about various conspiracies and that others were trying to keep her here. She had refused her oral medications. She had wanted to state that she could feel the energy of others around her. Mental Status Exam 2 MSE Comments: This is a well-nourished well-developed white female in hospital scrubs with limited grooming and eye contact appearing older than her state age. There was no evidence of any abnormal involuntary motor movements. She was uncooperative with exam. Her Speech was increased in rate and increased in volume while rambling. Mood described as fine. Her affect was irritable. talking about thought process was disorganized. Thought content: Patient denied suicidal or homicidal ideation, there were bizarre ideas of persecution, grandiose and , she did not report any auditory or visual hallucinations. Attention and concentration were limited and memory was unreliable, but none were formally tested. She was alert and oriented to person and place. Insight, judgment and impulse control are all impaired. Vitals/I&O/Wt Last Vital Signs Temp 98.7 F 09/23/25 14:00 Pulse 75 09/23/25 14:00 Resp 16 09/23/25 14:00 BP 117/78 09/23/25 14:00 Pulse Ox 99 09/23/25 14:00 O2 Del Method Room Air 09/23/25 14:00 Weight last 48 hrs Weight 57.323 kg Data NPU 09/10/25 17:05 09/10/25 17:05 A&P Assessment and plan 1. Acute psychosis: Plan: This is a 45-year-old white female who is known to this travel writer [facility] psychiatry through inpatient and crisis services and presents with significant psychosis, paranoia, delusions and grandiosity off of her medications reporting she is taking natural remedies. 1. Started Abilify 10 mg p.o. daily. Continue Abilify 20mg daily with haldol oral to be given if patient refuses. Abilify Maintena IM to be given today. 2. Continue every 15 minute checks for safety. 3. Encourage individual, group and milieu therapies. 4. Will encourage trial of medication with a possible long acting injectable possibility. Discussed forced medication protocol. With 20 mg of Geodon IM for any refused doses of Abilify. 5. We will evaluate against the backdrop of the 96-hour hold. Patient placed on a 21-day hold. 6. Obtain collateral information. 7. Encouraged sober living treatment after discharge at the highest level of care to which she is willing to commit. Concerns that cannabis is either exacerbating or a cause of her clear forward psychosis. 8. Patient's wheelchair was taken from her given there is no indications of any physical limitations but only her somatic delusional content. She was very upset by the change and struggled with interacting with anyone after the change. PDMP PDMP Reviewed: Not Reviewed Involuntary Hold Information 2 Hold Status: Legal Status: 96 Hour Hold Date/Time Hold Expires: 10/07/2025 Attestations NPU 2 Medical Necessity Statement*: Inpatient hospitalization is medically necessary and the clinically appropriate intervention at this time. We will monitor medications and make changes as indicated. Likely length of stay 7-10 days. Coding Level of Care Code Acute Code for Chg Fwd Diagnoses Acute psychosis F23
[2025-09-23] MEDS: ARIPiprazole Maintena 400 MG IM (17:05)
--- NOTE | 2025-09-23 17:05 | PC.NURSE ---
ERNESTO MAINTENA 400 MG GIVEN IM ORDERED BY PHYSICIAN INJECTION GIVEN IN RIGHT DELTOID LOT [id number] EXP DEC 2027
[2025-09-23 21:08] VITALS: BP 131/81; PULSE 75; RESP 19; TEMP 36.8; O2SAT 100
[2025-09-24] MEDS: MELATONIN 3 MG TABLET 9 MG PO ×2 (01:06→21:57)
--- NOTE | 2025-09-24 01:46 | PC.NURSE ---
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
[2025-09-24 06:00] VITALS: BP 125/76; PULSE 87; RESP 19; TEMP 36.7; O2SAT 98
[2025-09-24] MEDS: multivitamin therapeutic Tablet 1 TAB PO (08:47)
[2025-09-24] MEDS: sennosides-docusate Tablet 2 TAB PO (08:49)
[2025-09-24] MEDS: blistex lip oint 7 gm Tube 1 APPLIC TOPICAL (12:59)
[2025-09-24 14:00] VITALS: BP 129/76; PULSE 95; RESP 17; TEMP 37.1; O2SAT 100
--- NOTE | 2025-09-24 14:19 | P.NPUPN_ITS ---
Subjective NPU 2 Subjective: 45-year-old female with psychosis admitt ed for unusual behavior and active psychosis. The patient continued to ramble about various things stating that the government had been privy to her neurological problems stating that she wanted to have a specific type of chair as she had problems with pain and fibromyalgia. She had stated that these problems had a spiritual element to it and stated that these problems were likely to involved the president. She had described having some particular cardiac issues and stated that the treatment team should contact her shake maker as she is on disability for this and is fully entitled to all of the benefits the government can provide her as she had stated that the government may have been responsible for her medical crisis. Mental Status Exam 2 MSE Comments: This is a well-nourished well-developed white female in hospital scrubs with limited grooming and eye contact appearing older than her state age. There was no evidence of any abnormal involuntary motor movements. She was uncooperative with exam. Her speech was increased in rate and increased in volume while rambling. Mood described as okay, i don't need to be here. Her affect was irritable. Her thought process was nonlinear and tangential with presence of looseness of associations. Thought content: Patient denied suicidal or homicidal ideation, there were bizarre ideas of persecution, grandiose and , she did not report any auditory or visual hallucinations. Attention and concentration were limited and memory was unreliable, but none were formally tested. She was alert and oriented to person and place. Insight, judgment and impulse control are all impaired. Vitals/I&O/Wt Last Vital Signs Temp 98.7 F 09/24/25 14:00 Pulse 95 09/24/25 14:00 Resp 17 09/24/25 14:00 BP 129/76 09/24/25 14:00 Pulse Ox 100 09/24/25 14:00 O2 Del Method Room Air 09/24/25 14:00 Data NPU 09/10/25 17:05 09/10/25 17:05 A&P Assessment and plan 1. Schizoaffective disorder, bipolar type: 2. Acute psychosis: Plan: This is a 45-year-old white female who is known to this script writer [facility] psychiatry through inpatient and crisis services and presents with significant psychosis, paranoia, delusions and grandiosity off of her medications reporting she is taking natural remedies. 1. Abilify maintena given on 09/23/25. Increase abilify oral to 30mg daily. Consider Depakote ER loading for manic symptoms. 2. Continue every 15 minute checks for safety. 3. Encourage individual, group and milieu therapies. 4. Will encourage trial of medication with a possible long acting injectable possibility. Discussed forced medication protocol. With 20 mg of Geodon IM for any refused doses of Abilify. 5. We will evaluate against the backdrop of the 96-hour hold. Patient placed on a 21-day hold. 6. Obtain collateral information. 7. Encouraged sober living treatment after discharge at the highest level of care to which she is willing to commit. Concerns that cannabis is either exacerbating or a cause of her clear forward psychosis. 8. Patient's wheelchair was taken from her given there is no indications of any physical limitations but only her somatic delusional content. She was very upset by the change and struggled with interacting with anyone after the change. PDMP PDMP Reviewed: Not Reviewed Involuntary Hold Information 2 Hold Status: Legal Status: 96 Hour Hold Date/Time Hold Expires: 10/07/2025 Attestations NPU 2 Medical Necessity Statement*: Inpatient hospitalization is medically necessary and the clinically appropriate intervention at this time. We will monitor medications and make changes as indicated. Likely length of stay 7-10 days. Coding Level of Care Code Acute Code for g Fwd Diagnoses Schizoaffective disorder, bipolar type F25.0 Acute psychosis F23
[2025-09-24 19:58] VITALS: BP 122/81; PULSE 83; RESP 18; TEMP 36.8; O2SAT 98
[2025-09-25 05:10] VITALS: BP 119/76; PULSE 88; RESP 16; TEMP 36.8; O2SAT 100
--- NOTE | 2025-09-25 07:25 | PC.NURSE ---
pt sitting in dining room having conversation with other patients pt stating that when [place] becomes the [facility] by the way of the [place] the [facility] will be the beacon for us all then laughed.
[2025-09-25] MEDS: multivitamin therapeutic Tablet 1 TAB PO (08:20)
[2025-09-25 10:50] LABS: Free T4 Free Thyroxine 0.72 ng/dL (0.82-1.77); Thyroid Stimulating Hormone 1.95 uIU/mL (0.27-4.20)
[2025-09-25 14:00] VITALS: BP 121/80; PULSE 94; RESP 16; TEMP 37.3; O2SAT 98
--- NOTE | 2025-09-25 14:22 | W.PM.NPUPNS ---
Subjective NPU Subjective: 45-year-old female with psychosis admitted for unusual behavior and declining functioning at home. The patient continued to perseverate about various somatic complaints as she reported that she continues to struggle with migraine headaches. She had reported that her normal limits were not clear and easy to be understood. She had stated that she had lived off of your many spices and had a history of multiple concussions and problems with her balance. There did not appear to be any clear evidence of any active medical issues here despite her numerous complaints. She continued to report that she was able to take care of herself and requested that labs be conducted in order to find the reason for why she had problems with her digestive system. She reported that she did not need to be here in the hospital and stated that her family had plotted to have her here in the hospital. Mental Status Exam MSE Comments: This is a well-nourished well-developed white female in hospital scrubs with limited grooming and eye contact appearing older than her state age. There was no evidence of any abnormal involuntary motor movements. She was cooperative with exam. Her speech was increased in rate and increased in volume while rambling. Mood described as fine. Her affect was irritable. Her thought process was nonlinear and tangential with presence of looseness of associations. Thought content: Patient denied suicidal or homicidal ideation, there were bizarre ideas of persecution, grandiose and , she did not report any auditory or visual hallucinations. Attention and concentration were limited and memory was unreliable, but none were formally tested. She was alert and oriented to person and place. Insight, judgment and impulse control are all impaired. Vitals/I&O/Wt Last Vital Signs Temp 98.3 F 09/25/25 05:10 Pulse 88 09/25/25 05:10 Resp 16 09/25/25 05:10 BP 119/76 09/25/25 05:10 Pulse Ox 100 09/25/25 05:10 O2 Del Method Room Air 09/25/25 05:10 Data NPU 09/10/25 17:05 09/10/25 17:05 A&P Assessment and plan 1. Schizoaffective disorder, bipolar type: 2. Acute psychosis: Plan: This is a 45-year-old white female who is known to this administrative underwriter [facility] psychiatry through inpatient and crisis services and presents with significant psychosis, paranoia, delusions and grandiosity off of her medications reporting she is taking natural remedies. 1. Abilify maintena given on 09/23/25. Continue abilify oral at 30mg daily. Consider Depakote ER loading for manic symptoms. 2. Continue every 15 minute checks for safety. 3. Encourage individual, group and milieu therapies. 4. Will encourage trial of medication with a possible long acting injectable possibility. Discussed forced medication protocol. With 20 mg of Geodon IM for any refused doses of Abilify. 5. We will evaluate against the backdrop of the 96-hour hold. Patient placed on a 21-day hold. 6. Obtain collateral information. 7. Encouraged sober living treatment after discharge at the highest level of care to which she is willing to commit. Concerns that cannabis is either exacerbating or a cause of her clear forward psychosis. 8. Patient's wheelchair was taken from her given there is no indications of any physical limitations but only her somatic delusional content. She was very upset by the change and struggled with interacting with anyone after the change. 9. Will perform GOOD to examine ability to live independently. PDMP PDMP Reviewed: Not Reviewed Involuntary Hold Information Hold Status: Legal Status: 96 Hour Hold Date/Time Hold Expires: 10/07/2025 Attestations NPU Medical Necessity Statement*: Inpatient hospitalization is medically necessary and the clinically appropriate intervention at this time. We will monitor medications and make changes as indicated. Likely length of stay 7-10 days. Coding Level of Care Code Acute Code for [facility] Diagnoses Schizoaffective disorder, bipolar type F25.0 Acute psychosis F23
[2025-09-25 20:00] VITALS: BP 122/71; PULSE 76; RESP 17; TEMP 36.7; O2SAT 100
[2025-09-25] MEDS: MELATONIN 3 MG TABLET 9 MG PO (20:20)
[2025-09-26 06:00] VITALS: BP 125/76; PULSE 83; RESP 16; TEMP 36.8; O2SAT 96
[2025-09-26] MEDS: multivitamin therapeutic Tablet 1 TAB PO (09:30)
[2025-09-26 14:00] VITALS: BP 139/94; PULSE 91; RESP 20; TEMP 36.8; O2SAT 100
--- NOTE | 2025-09-26 17:44 | P.NPUPN_ITS ---
Subjective NPU 2 Subjective: 45-year-old female with psychosis admitt ed for unusual behavior and declining functioning at home. The patient continued to report struggles with concentration and continued to state that she needed to get additional support but continued to make excuses about how the government was not helping her. She had stated that she did not think that she needed help in her home for 8 hours/day. She had reported that she continue to believe that she had multiple problems going on with her that had not been addressed as she had reported having problems with her balance today despite there being no evidence of this. She had reported having difficulties falling asleep. She had expressed a belief that her mood was influenced by the herbs the government had provided her. Mental Status Exam 2 MSE Comments: This is a well-nourished well-developed white female in hospital scrubs with limited grooming and eye contact appearing older than her state age. There was no evidence of any abnormal involuntary motor movements. She was cooperative with exam. Her speech was increased in rate and increased in volume while rambling. Mood described as good. Her affect was irritable. Her thought process was nonlinear and tangential with presence of looseness of associations. Thought content: Patient denied suicidal or homicidal ideation, there were bizarre ideas of persecution, grandiose and , she did not report any auditory or visual hallucinations. Attention and concentration were limited and memory was unreliable, but none were formally tested. She was alert and oriented to person and place. Insight, judgment and impulse control are all impaired. Vitals/I&O/Wt Last Vital Signs Temp 98.2 F 09/26/25 14:00 Pulse 91 09/26/25 14:00 Resp 20 H 09/26/25 14:00 BP 139/94 09/26/25 14:00 Pulse Ox 100 09/26/25 14:00 O2 Del Method Room Air 09/26/25 14:00 09/26/25 09/26/25 09/26/25 06:59 14:59 22:59 Intake Total 0 / 0 Balance 0 / 0 Data NPU 09/10/25 17:05 09/10/25 17:05 A&P Assessment and plan 1. Schizoaffective disorder, bipolar type: 2. Acute psychosis: Plan: This is a 45-year-old white female who is known to this administrative underwriter [facility] psychiatry through inpatient and crisis services and presents with significant psychosis, paranoia, delusions and grandiosity off of her medications reporting she is taking natural remedies. 1. Abilify maintena given on 09/23/25. Continue abilify oral at 30mg daily. Consider Depakote ER loading for manic symptoms. 2. Continue every 15 minute checks for safety. 3. Encourage individual, group and milieu therapies. 4. Will encourage trial of medication with a possible long acting injectable possibility. Discussed forced medication protocol. With 20 mg of Geodon IM for any refused doses of Abilify. 5. We will evaluate against the backdrop of the 96-hour hold. Patient placed on a 21-day hold. 6. Obtain collateral information. 7. Encouraged sober living treatment after discharge at the highest level of care to which she is willing to commit. Concerns that cannabis is either exacerbating or a cause of her clear forward psychosis. 8. Patient's wheelchair was taken from her given there is no indications of any physical limitations but only her somatic delusional content. She was very upset by the change and struggled with interacting with anyone after the change. 9. GOOD revealed assistance needed in 7/13 domains with suggestion that the patient require 24 hour supervision in order to live safely. Will complete level 2 with family possibly supporting obtaining Guardianship in [place]. PDMP PDMP Reviewed: Not Reviewed Involuntary Hold Information 2 Hold Status: Legal Status: 96 Hour Hold Date/Time Hold Expires: 10/07/2025 Attestations NPU 2 Medical Necessity Statement*: Inpatient hospitalization is medically necessary and the clinically appropriate intervention at this time. We will monitor medications and make changes as indicated. Likely length of stay 3-5 days. Coding Level of Care Code Acute Code for [facility] Fwd Diagnoses Schizoaffective disorder, bipolar type F25.0 Acute psychosis F23
[2025-09-26 19:37] VITALS: BP 107/61; PULSE 75; RESP 16; TEMP 36.8; O2SAT 96
[2025-09-26] MEDS: MELATONIN 3 MG TABLET 9 MG PO (19:58)
[2025-09-26 23:49] VITALS: BP 126/75; PULSE 78; RESP 16; O2SAT 100
--- NOTE | 2025-09-27 02:46 | PC.NURSE ---
pt complaint pt came to the desk stating she is having a 'pseudo stroke' this nurse asked what course of action patient was intending on taking and she stated she 'wanted it noted in her chart' pt then hit her call light stating she had just had a 'mini stroke' and she needed an aspirin for her TIA that was now affecting her right side. this nurse did a stroke scale which was negative, and Jessica KIM, did a set of vitals which were all within normal range. pt given a cool towel and a bucket as at that time she stated she was also nauseas. pt then pressed her call light because she wrote a letter for 'hippa release' so she can have her legal [place] contacted. at this same interaction pt was complaining of SOB. vitals taken again and all were WNL.
[2025-09-27 02:49] VITALS: BP 125/83; PULSE 92; RESP 16; TEMP 36.8; O2SAT 99
[2025-09-27 06:00] VITALS: BP 138/79; PULSE 88; RESP 17; TEMP 36.7; O2SAT 98
[2025-09-27] MEDS: multivitamin therapeutic Tablet 1 TAB PO (08:08)
--- NOTE | 2025-09-27 12:47 | PC.NURSE ---
Pt. called [facility] today. [facility] employee said pt. and her is very upset wanting to talk with Gloria or Kristopher regarding some court documents. Pt. has been informed repeatedly that staff here at [facility] do not deal with these court documents. [facility] employee said she has know idea what pt. and are talking about.
--- NOTE | 2025-09-27 14:39 | P.NPUPN_ITS ---
Subjective NPU 2 Subjective: 45-year-old female with psychosis admitt ed for unusual behavior and declining functioning at home. The patient continued to report that she was having a variety of medical issues. She had stated that her postnasal drip had something to do with her transient ischemic attack and was associated to her continued use of silver nitrate as a child in [place]. She had continued to complain of headaches. She had isolated herself on the milieu. She had continued to report that she was entitled to benefits and stated that she had struggled with being able to manage her finances or pay her bills. Mental Status Exam 2 MSE Comments: This is a well-nourished well-developed white female in hospital scrubs with limited grooming and eye contact appearing older than her state age. There was no evidence of any abnormal involuntary motor movements. She was cooperative with exam. Her speech was increased in rate and increased in volume while rambling. Mood described as good. Her affect was irritable. Her thought process was nonlinear and tangential with presence of looseness of associations. Thought content: Patient denied suicidal or homicidal ideation, there were bizarre ideas of persecution, grandiose and , she did not report any auditory or visual hallucinations. Attention and concentration were limited and memory was unreliable, but none were formally tested. She was alert and oriented to person and place. Insight, judgment and impulse control are all impaired. Vitals/I&O/Wt Last Vital Signs Temp 98.1 F 09/27/25 06:00 Pulse 88 09/27/25 06:00 Resp 17 09/27/25 06:00 BP 138/79 09/27/25 06:00 Pulse Ox 98 09/27/25 06:00 O2 Del Method Room Air 09/27/25 06:00 09/26/25 09/27/25 09/27/25 22:59 06:59 14:59 Intake Total 0 / 0 Balance 0 / 0 Data NPU 09/10/25 17:05 09/10/25 17:05 A&P Assessment and plan 1. Schizoaffective disorder, bipolar type: 2. Acute psychosis: Plan: This is a 45-year-old white female who is known to this newswriter [facility] psychiatry through inpatient and crisis services and presents with significant psychosis, paranoia, delusions and grandiosity off of her medications reporting she is taking natural remedies. 1. Abilify maintena given on 09/23/25. Continue abilify oral at 30mg daily. Consider Depakote ER loading for manic symptoms. 2. Continue every 15 minute checks for safety. 3. Encourage individual, group and milieu therapies. 4. Will encourage trial of medication with a possible long acting injectable possibility. Discussed forced medication protocol. With 20 mg of Geodon IM for any refused doses of Abilify. 5. We will evaluate against the backdrop of the 96-hour hold. Patient placed on a 21-day hold. 6. Obtain collateral information. 7. Encouraged sober living treatment after discharge at the highest level of care to which she is willing to commit. Concerns that cannabis is either exacerbating or a cause of her clear forward psychosis. 8. Patient's wheelchair was taken from her given there is no indications of any physical limitations but only her somatic delusional content. She was very upset by the change and struggled with interacting with anyone after the change. 9. GOOD revealed assistance needed in 7/13 domains with suggestion that the patient require 24 hour supervision in order to live safely. Will complete level 2 with family possibly supporting obtaining Guardianship in [place]. 10. Filed paperwork in support of Level 2. PDMP PDMP Reviewed: Not Reviewed Involuntary Hold Information 2 Hold Status: Legal Status: 96 Hour Hold Date/Time Hold Expires: 10/07/2025 Attestations NPU 2 Medical Necessity Statement*: Inpatient hospitalization is medically necessary and the clinically appropriate intervention at this time. We will monitor medications and make changes as indicated. Likely length of stay 7-9 days. Coding Level of Care Code Acute Code for [facility] Fwd Diagnoses Schizoaffective disorder, bipolar type F25.0 Acute psychosis F23
[2025-09-27] MEDS: MELATONIN 3 MG TABLET 9 MG PO (20:23)
[2025-09-27 20:51] VITALS: BP 120/76; PULSE 68; RESP 17; TEMP 36.7; O2SAT 99
[2025-09-28 06:00] VITALS: BP 129/86; PULSE 82; RESP 18; TEMP 36.8; O2SAT 98
[2025-09-28] MEDS: multivitamin therapeutic Tablet 1 TAB PO (08:18)
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
[2025-09-28 14:00] VITALS: BP 136/84; PULSE 75; RESP 18; TEMP 36.9; O2SAT 98
--- NOTE | 2025-09-28 14:18 | P.NPUPN_ITS ---
Subjective NPU 2 Subjective: 45-year-old female with psychosis admitt ed for unusual behavior and declining functioning at home. The patient remained focused on multiple somatic issues. She had requested vitamin D and requested to know more about her problems with her headaches. She had reported that her headaches were somehow associated with being exposed to something as a child. Mental Status Exam 2 MSE Comments: This is a well-nourished well-developed white female in hospital scrubs with limited grooming and eye contact appearing older than her state age. There was no evidence of any abnormal involuntary motor movements. She was cooperative with exam. Her speech was increased in rate and increased in volume while rambling. Mood described as okay. Her affect was irritable. Her thought process was nonlinear and tangential with presence of looseness of associations. Thought content: Patient denied suicidal or homicidal ideation, There were bizarre ideas of persecutio, she did not report any auditory or visual hallucinations. Attention and concentration were limited and memory was unreliable, but none were formally tested. She was alert and oriented to person and place. Insight, judgment and impulse control are all impaired. Vitals/I&O/Wt Last Vital Signs Temp 98.2 F 09/28/25 06:00 Pulse 82 09/28/25 06:00 Resp 18 09/28/25 06:00 BP 129/86 09/28/25 06:00 Pulse Ox 98 09/28/25 06:00 O2 Del Method Room Air 09/28/25 06:00 Data NPU 09/10/25 17:05 09/10/25 17:05 A&P Assessment and plan 1. Schizoaffective disorder, bipolar type: 2. Acute psychosis: Plan: This is a 45-year-old white female who is known to this personal lines underwriter [facility] psychiatry through inpatient and crisis services and presents with significant psychosis, paranoia, delusions and grandiosity off of her medications reporting she is taking natural remedies. 1. Abilify maintena given on 09/23/25. Continue abilify oral at 30mg daily. Consider Depakote ER loading for manic symptoms. 2. Continue every 15 minute checks for safety. 3. Encourage individual, group and milieu therapies. 4. Will encourage trial of medication with a possible long acting injectable possibility. Discussed forced medication protocol. With 20 mg of Geodon IM for any refused doses of Abilify. 5. We will evaluate against the backdrop of the 96-hour hold. Patient placed on a 21-day hold. 6. Obtain collateral information. 7. Encouraged sober living treatment after discharge at the highest level of care to which she is willing to commit. Concerns that cannabis is either exacerbating or a cause of her clear forward psychosis. 8. Patient's wheelchair was taken from her given there is no indications of any physical limitations but only her somatic delusional content. She was very upset by the change and struggled with interacting with anyone after the change. 9. GOOD revealed assistance needed in 7/13 domains with suggestion that the patient require 24 hour supervision in order to live safely. Will complete level 2 with family possibly supporting obtaining Guardianship in [place]. Family pursuing emergency guardianship. 10. Filed paperwork in support of Level 2. PDMP PDMP Reviewed: Not Reviewed Involuntary Hold Information 2 Hold Status: Legal Status: 96 Hour Hold Date/Time Hold Expires: 10/07/2025 Attestations NPU 2 Medical Necessity Statement*: Inpatient hospitalization is medically necessary and the clinically appropriate intervention at this time. We will monitor medications and make changes as indicated. Likely length of stay 7-9 days. Coding Level of Care Code Acute Code for [facility] Fwd Diagnoses Schizoaffective disorder, bipolar type F25.0 Acute psychosis F23
[2025-09-28] MEDS: MELATONIN 3 MG TABLET 9 MG PO (20:02)
[2025-09-28 20:47] VITALS: BP 127/77; PULSE 78; RESP 16; TEMP 36.7; O2SAT 99
[2025-09-28 20:49] VITALS: BMI 23.5
[2025-09-29 05:50] VITALS: BP 126/81; PULSE 78; RESP 17; TEMP 36.7; O2SAT 100
[2025-09-29] MEDS: multivitamin therapeutic Tablet 1 TAB PO (07:59)
--- NOTE | 2025-09-29 13:12 | W.PM.NPUPNS ---
Subjective NPU Subjective: 45-year-old female with psychosis admitted for unusual behavior and declining functioning at home. Patient continued to have bizarre somatic complaints. She had reported that she wanted her blood pressure checked more frequently despite there being no evidence to having any current problems. She continued to report struggles with managing her headaches and reported that it had something to do with her salt consumption. The patient had continued to report problems with concentration. She reported no side effects from her medication regimen. The patient had been isolative. She had required some prompting to engage in appropriate self-care. Patient no longer requesting any medication or any wheelchair request due to complaints of pain when walking. Mental Status Exam MSE Comments: This is a well-nourished well-developed white female in hospital scrubs with limited grooming and eye contact appearing older than her state age. There was no evidence of any abnormal involuntary motor movements. She was cooperative with exam. Her speech was increased in rate and increased in volume while rambling. Mood described as okay. Her affect was subdued. Her thought process was nonlinear and tangential with presence of looseness of associations. Thought content: Patient denied suicidal or homicidal ideation, There were bizarre ideas of persecution, she did not report any auditory or visual hallucinations. Attention and concentration were limited and memory was unreliable, but none were formally tested. She was alert and oriented to person and place and time. Insight is poor. Judgment is improving and impulse control remained limited. Vitals/I&O/Wt Last Vital Signs Temp 98.0 F 09/29/25 05:50 Pulse 78 09/29/25 05:50 Resp 17 09/29/25 05:50 BP 126/81 09/29/25 05:50 Pulse Ox 100 09/29/25 05:50 O2 Del Method Room Air 09/29/25 05:50 09/28/25 09/29/25 09/29/25 22:59 06:59 14:59 Intake Total 0 / 0 Balance 0 / 0 Weight last 48 hrs Weight 62.199 kg Data NPU 09/10/25 17:05 09/10/25 17:05 A&P Assessment and plan 1. Schizoaffective disorder, bipolar type: 2. Acute psychosis: Plan: This is a 45-year-old white female who is known to this short story writer [facility] psychiatry through inpatient and crisis services and presents with significant psychosis, paranoia, delusions and grandiosity off of her medications reporting she is taking natural remedies. 1. Abilify maintena given on 09/23/25. Continue abilify oral at 30mg daily. Consider Depakote ER loading for manic symptoms. 2. Continue every 15 minute checks for safety. 3. Encourage individual, group and milieu therapies. 4. Will encourage trial of medication with a possible long acting injectable possibility. Discussed forced medication protocol. With 20 mg of Geodon IM for any refused doses of Abilify. 5. We will evaluate against the backdrop of the 96-hour hold. Patient placed on a 21-day hold. 6. Obtain collateral information. 7. Encouraged sober living treatment after discharge at the highest level of care to which she is willing to commit. Concerns that cannabis is either exacerbating or a cause of her clear forward psychosis. 8. Patient's wheelchair was taken from her given there is no indications of any physical limitations but only her somatic delusional content. She was very upset by the change and struggled with interacting with anyone after the change. 9. GOOD revealed assistance needed in 7/13 domains with suggestion that the patient require 24 hour supervision in order to live safely. Will complete level 2 with family possibly supporting obtaining Guardianship in [place]. Family pursuing emergency guardianship. 10. Filed paperwork in support of Level 2. PDMP PDMP Reviewed: Not Reviewed Involuntary Hold Information Hold Status: Legal Status: 96 Hour Hold Date/Time Hold Expires: 10/07/2025 Attestations NPU Medical Necessity Statement*: Inpatient hospitalization is medically necessary and the clinically appropriate intervention at this time. We will monitor medications and make changes as indicated. The patient's Likely length of stay 7-9 days. Coding Level of Care Code Acute Code for [facility] Fwd Diagnoses Schizoaffective disorder, bipolar type F25.0 Acute psychosis F23
[2025-09-29 13:39] VITALS: BP 135/79; PULSE 90; RESP 18; TEMP 36.7; O2SAT 99
--- NOTE | 2025-09-29 14:10 | PC.NURSE ---
Patient is at the nurses station requesting copies be made of the notes that she has been taking. 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 She is requesting that they allow her ot bring embalec haider cannabis in for her pain. She said [facility] counseling should be contacted regarding her past history. Patient has been calm and mostly pleasant this shift. She is easily redirectable.
[2025-09-29] MEDS: sennosides-docusate Tablet 2 TAB PO (16:33)
[2025-09-29] MEDS: MELATONIN 3 MG TABLET 9 MG PO (20:05)
[2025-09-29 20:40] VITALS: BP 135/89; PULSE 77; RESP 18; TEMP 36.6; O2SAT 99
[2025-09-30 06:00] VITALS: BP 117/80; PULSE 76; RESP 18; TEMP 36.7; O2SAT 98
[2025-09-30] MEDS: multivitamin therapeutic Tablet 1 TAB PO (08:03)
[2025-09-30] MEDS: polyethylene glycol 3350 Pkt 17 gm PO (08:40)
[2025-09-30 14:00] VITALS: BP 133/72; PULSE 95; RESP 16; TEMP 36.7; O2SAT 98
--- NOTE | 2025-09-30 14:45 | W.PM.NPUPNS ---
Subjective NPU Subjective: 45-year-old female with psychosis admitted for unusual behavior and declining functioning at home while living alone. The patient was scheduled to have a interview with [facility] regarding guardianship. The patient reported no side effects from her medication. She continued to remain somatically preoccupied stating that she needed a orthopedic shoe due to her active problems in her lower extremities. This did not appear to be evident upon examination from the primary care physician. She had continued to report that she was investigating that the problems associated with her vitamin deficiencies. The patient had contacted risk-management asking them to address her complaints here. The patient continued to isolate herself on the milieu. She had been less irritable and more redirectable. She had continued to eat well without any issues. Mental Status Exam MSE Comments: This is a well-nourished well-developed white female in hospital scrubs with limited grooming and eye contact appearing older than her state age. There was no evidence of any abnormal involuntary motor movements. She was cooperative with exam. Her speech was normal in rate but very productive with normal volume. She continued to ramble but less use of nonsequiturs, Mood described as okay. Her affect was subdued. Her thought process was nonlinear and tangential with presence of looseness of associations. Thought content: Patient denied suicidal or homicidal ideation, There were bizarre ideas of persecution, she did not report any auditory or visual hallucinations. Attention and concentration were limited and memory was unreliable, but none were formally tested. She was alert and oriented to person and place and time. Insight is poor. Judgment is limited but improving and impulse control remained limited. Vitals/I&O/Wt Last Vital Signs Temp 98.1 F 09/30/25 14:00 Pulse 95 09/30/25 14:00 Resp 16 09/30/25 14:00 BP 133/72 09/30/25 14:00 Pulse Ox 98 09/30/25 14:00 O2 Del Method Room Air 09/30/25 14:00 Weight last 48 hrs Weight 62.199 kg Data NPU 09/10/25 17:05 09/10/25 17:05 A&P Assessment and plan 1. Schizoaffective disorder, bipolar type: 2. Acute psychosis: Plan: This is a 45-year-old white female who is known to this service writer [facility] psychiatry through inpatient and crisis services and presents with significant psychosis, paranoia, delusions and grandiosity off of her medications reporting she is taking natural remedies. 1. Abilify maintena given on 09/23/25. Continue abilify oral at 30mg daily. Consider Depakote ER loading for manic symptoms. 2. Continue every 15 minute checks for safety. 3. Encourage individual, group and milieu therapies. 4. Will encourage trial of medication with a possible long acting injectable possibility. Discussed forced medication protocol. With 20 mg of Geodon IM for any refused doses of Abilify. 5. We will evaluate against the backdrop of the 96-hour hold. Patient placed on a 21-day hold. 6. Obtain collateral information. 7. Encouraged sober living treatment after discharge at the highest level of care to which she is willing to commit. Concerns that cannabis is either exacerbating or a cause of her clear forward psychosis. 8. Patient's wheelchair was taken from her given there is no indications of any physical limitations but only her somatic delusional content. She was very upset by the change and struggled with interacting with anyone after the change. 9. GOOD revealed assistance needed in 7/13 domains with suggestion that the patient require 24 hour supervision in order to live safely. Will complete level 2 with family possibly supporting obtaining Guardianship in [place]. Family pursuing emergency guardianship. 10. Filed paperwork in support of Level 2. Interview with Psychologists to determine eligibility for placement today. PDMP PDMP Reviewed: Not Reviewed Involuntary Hold Information Hold Status: Legal Status: 96 Hour Hold Date/Time Hold Expires: 10/07/2025 Attestations NPU Medical Necessity Statement*: Inpatient hospitalization is medically necessary and the clinically appropriate intervention at this time. We will monitor medications and make changes as indicated. The patient's likely length of stay is 7-9 days. Coding Level of Care Code Acute Code for [facility] Diagnoses Schizoaffective disorder, bipolar type F25.0 Acute psychosis F23
[2025-09-30] MEDS: blistex lip oint 7 gm Tube 1 APPLIC TOPICAL (20:10)
[2025-09-30] MEDS: MELATONIN 3 MG TABLET 9 MG PO (20:10)
[2025-09-30 20:23] VITALS: BP 141/77; PULSE 104; RESP 16; O2SAT 97
[2025-09-30 20:37] VITALS: TEMP 36.6
[2025-10-01 06:00] VITALS: BP 126/73; PULSE 92; RESP 18; TEMP 36.4; O2SAT 98
[2025-10-01] MEDS: multivitamin therapeutic Tablet 1 TAB PO (07:37)
[2025-10-01] MEDS: polyethylene glycol 3350 Pkt 17 gm PO (07:37)
[2025-10-01] MEDS: blistex lip oint 7 gm Tube 1 APPLIC TOPICAL ×2 (07:39→19:17)
--- NOTE | 2025-10-01 10:28 | PC.NURSE ---
Pt reports that she leaned over in the shower to flower buncher or picker her washcloth and bumped her head on the railing in shower, pt stated that she did not fall. vital signs WNL at this time.
[2025-10-01 11:00] VITALS: BP 119/63; PULSE 111; RESP 17; TEMP 37.7; O2SAT 96
[2025-10-01 14:00] VITALS: BP 127/81; PULSE 96; RESP 15; TEMP 37.1; O2SAT 100
--- NOTE | 2025-10-01 14:15 | P.NPUPN_ITS ---
Subjective NPU 2 Subjective: 45-year-old female with psychosis admitt ed for unusual behavior and declining functioning at home while living alone. The patient continued to ramble about her medical problems which included her problems with having been diagnosed with malignant melanoma at the age of 6. She had pointed to different parts of her skin suggesting that there was a black spot there and that she needed to be on herbs in order to make it go away. She had stated that these needs had not been met. She had stated that her family wanting to gain control of her guardianship was the worst thing that could happen to me she had continued to make requests for some orthopedic shoes stating that it was somehow helpful for her malignant melanoma. Mental Status Exam 2 MSE Comments: This is a well-nourished well-developed white female in hospital scrubs with limited grooming and eye contact appearing older than her state age. There was no evidence of any abnormal involuntary motor movements. She was cooperative with exam. Her speech was normal in rate but very productive with normal volume. She continued to ramble but less use of nonsequiturs, Mood described as okay. Her affect was subdued. Her thought process was nonlinear and tangential with presence of looseness of associations. Thought content: Patient denied suicidal or homicidal ideation, There were bizarre ideas of persecution, she did not report any auditory or visual hallucinations. Attention and concentration were limited and memory was unreliable, but none were formally tested. She was alert and oriented to person and place and time. Insight is poor. Judgment is limited but improving and impulse control remained limited. Vitals/I&O/Wt Last Vital Signs Temp 99.8 F H 10/01/25 11:00 Pulse 111 H 10/01/25 11:00 Resp 17 10/01/25 11:00 BP 119/63 10/01/25 11:00 Pulse Ox 96 10/01/25 11:00 O2 Del Method Room Air 10/01/25 11:00 Data NPU 09/10/25 17:05 09/10/25 17:05 A&P Assessment and plan 1. Schizoaffective disorder, bipolar type: 2. Acute psychosis: Plan: This is a 45-year-old white female who is known to this newspaper writer [facility] psychiatry through inpatient and crisis services and presents with significant psychosis, paranoia, delusions and grandiosity off of her medications reporting she is taking natural remedies. 1. Abilify maintena given on 09/23/25. Continue abilify oral at 30mg daily. Consider Depakote ER loading for manic symptoms. 2. Continue every 15 minute checks for safety. 3. Encourage individual, group and milieu therapies. 4. Will encourage trial of medication with a possible long acting injectable possibility. Discussed forced medication protocol. With 20 mg of Geodon IM for any refused doses of Abilify. 5. We will evaluate against the backdrop of the 96-hour hold. Patient placed on a 21-day hold. 6. Obtain collateral information. 7. Encouraged sober living treatment after discharge at the highest level of care to which she is willing to commit. Concerns that cannabis is either exacerbating or a cause of her clear forward psychosis. 8. Patient's wheelchair was taken from her given there is no indications of any physical limitations but only her somatic delusional content. She was very upset by the change and struggled with interacting with anyone after the change. 9. GOOD revealed assistance needed in 7/13 domains with suggestion that the patient require 24 hour supervision in order to live safely. Will complete level 2 with family possibly supporting obtaining Guardianship in [place]. Family pursuing emergency guardianship. 10. Filed paperwork in support of Level 2. Interview with Psychologists to determine eligibility for placement today. 21 day hearing today. PDMP PDMP Reviewed: Not Reviewed Involuntary Hold Information 2 Hold Status: Legal Status: 96 Hour Hold Date/Time Hold Expires: 10/07/2025 Attestations NPU 2 Medical Necessity Statement*: Inpatient hospitalization is medically necessary and the clinically appropriate intervention at this time. We will monitor medications and make changes as indicated. The patient's likely length of stay is 7-9 days. Coding Level of Care Code Acute Code for [facility] Fwd Diagnoses Schizoaffective disorder, bipolar type F25.0 Acute psychosis F23
--- NOTE | 2025-10-01 14:36 | PC.NURSE ---
Pt escorted to Court by officers of the law.
[2025-10-01 19:49] VITALS: BP 123/74; PULSE 75; RESP 16; TEMP 36.7; O2SAT 96
[2025-10-01] MEDS: MELATONIN 3 MG TABLET 9 MG PO (20:18)
[2025-10-02] MEDS: blistex lip oint 7 gm Tube 1 APPLIC TOPICAL (02:10)
[2025-10-02 06:00] VITALS: BP 110/72; PULSE 78; RESP 16; TEMP 36.8; O2SAT 96
[2025-10-02] MEDS: multivitamin therapeutic Tablet 1 TAB PO (08:32)
[2025-10-02 14:00] VITALS: BP 132/79; PULSE 111; RESP 15; TEMP 37.2; O2SAT 99
--- NOTE | 2025-10-02 14:34 | W.PM.NPUPNS ---
Subjective NPU Subjective: 45-year-old female with psychosis admitted for unusual behavior and declining functioning at home while living alone. The patient was placed on guardianship and reported being upset that she did not have a chance to speak on her behalf in the court setting. She continued to struggle with sleep as she appeared up at 4 AM and reported feeling rested. She had denied any history of manic symptoms. She continued to report that she had melanoma as she proceeded to point to a part of her skin stating that she could see the cancer there. She reported no side effects from her medication regimen. She continued to minimize having problems with caring for herself but at the same time reported that she struggled with making payments in her previous residence for bills and other utilities. She had requested orthopedic shoes as she had stated that her back problems were giving her increased stress. Mental Status Exam MSE Comments: This is a well-nourished well-developed white female in hospital scrubs with limited grooming and eye contact appearing older than her state age. There was no evidence of any abnormal involuntary motor movements. She was cooperative with exam. Her speech was normal in rate but very productive with normal volume. Mood described as okay. Her affect remained subdued. Her thought process was more linear but eventually derailed. Thought content: Patient denied suicidal or homicidal ideation, There were bizarre ideas of persecution, she did not report any auditory or visual hallucinations. Attention and concentration were limited and memory was unreliable, but none were formally tested. She was alert and oriented to person and place and time. Insight is poor. Judgment is limited but improving and impulse control remained limited. Vitals/I&O/Wt Last Vital Signs Temp 98.9 F 10/02/25 14:00 Pulse 111 H 10/02/25 14:00 Resp 15 10/02/25 14:00 BP 132/79 10/02/25 14:00 Pulse Ox 99 10/02/25 14:00 O2 Del Method Room Air 10/02/25 06:00 Data NPU 09/10/25 17:05 09/10/25 17:05 A&P Assessment and plan 1. Schizoaffective disorder, bipolar type: 2. Acute psychosis: Plan: This is a 45-year-old white female who is known to this radio script writer [facility] psychiatry through inpatient and crisis services and presents with significant psychosis, paranoia, delusions and grandiosity off of her medications reporting she is taking natural remedies. 1. Abilify maintena given on 09/23/25. Continue abilify oral at 30mg daily. Patient refusing any medications for sleep. 2. Continue every 15 minute checks for safety. 3. Encourage individual, group and milieu therapies. 4. Will encourage trial of medication with a possible long acting injectable possibility. Discussed forced medication protocol. With 20 mg of Geodon IM for any refused doses of Abilify. 5. We will evaluate against the backdrop of the 96-hour hold. Patient placed on a 21-day hold. 6. Obtain collateral information. 7. Encouraged sober living treatment after discharge at the highest level of care to which she is willing to commit. Concerns that cannabis is either exacerbating or a cause of her clear forward psychosis. 8. Patient's wheelchair was taken from her given there is no indications of any physical limitations but only her somatic delusional content. She was very upset by the change and struggled with interacting with anyone after the change. 9. GOOD revealed assistance needed in 7/13 domains with suggestion that the patient require 24 hour supervision in order to live safely. Will complete level 2 with family possibly supporting obtaining Guardianship in [place]. Family pursuing emergency guardianship. 10. Filed paperwork in support of Level 2. Patient now under temporary guardianship under parents, we are seeking placement in locked facility PDMP PDMP Reviewed: Not Reviewed Involuntary Hold Information Hold Status: Legal Status: 96 Hour Hold Date/Time Hold Expires: 10/07/2025 Attestations NPU Medical Necessity Statement*: Inpatient hospitalization is medically necessary and the clinically appropriate intervention at this time. We will monitor medications and make changes as indicated. The patient's likely length of stay is 5-7 days. Coding Level of Care Code Acute Code for [facility] Diagnoses Schizoaffective disorder, bipolar type F25.0 Acute psychosis F23
[2025-10-02 19:50] VITALS: BP 130/74; PULSE 84; RESP 16; TEMP 37.1; O2SAT 99
[2025-10-02] MEDS: MELATONIN 3 MG TABLET 9 MG PO (20:44)
[2025-10-03] MEDS: cetylpyridinium Lozenge 1 EACH MUCOUS MEM ×7 (02:08→22:50)
[2025-10-03 06:00] VITALS: BP 111/70; PULSE 97; RESP 16; TEMP 36.7; O2SAT 97
[2025-10-03] MEDS: multivitamin therapeutic Tablet 1 TAB PO (08:06)
[2025-10-03] MEDS: polyethylene glycol 3350 Pkt 17 gm PO (08:06)
--- NOTE | 2025-10-03 10:02 | P.NPUPN_ITS ---
Subjective NPU 2 Subjective: 45-year-old female with psychosis admitt ed for unusual behavior and declining functioning at home while living alone. Patient expressed interest in trying alternatives to help her with sleep as she had reported a long history of difficulties falling asleep and staying asleep. She had reported problems with a variety of ailments but appeared less preoccupied by medical issues. She had reported that she would like to consider vitamins including potentially 5 HTP for helping with her mood and sleep. She continue to report that she felt that she had skin cancer. She had denied any racing thoughts at this time. Mental Status Exam 2 MSE Comments: This is a well-nourished well-developed white female in hospital scrubs with limited grooming and eye contact appearing older than her state age. There was no evidence of any abnormal involuntary motor movements. She was cooperative with exam. Her speech was normal in rate but very productive with normal volume. Mood described as okay. Her affect was brighter and less irritable. Her thought process was more linear with less derailment appreciated. Thought content: Patient denied suicidal or homicidal ideation, She did not report any auditory or visual hallucinations. Attention and concentration were better. She was alert and oriented to person and place and time. Insight is poor. Judgment is limited but improving and impulse control remained limited. Vitals/I&O/Wt Last Vital Signs Temp 98.0 F 10/03/25 06:00 Pulse 97 10/03/25 06:00 Resp 16 10/03/25 06:00 BP 111/70 10/03/25 06:00 Pulse Ox 97 10/03/25 06:00 O2 Del Method Room Air 10/02/25 19:50 Data NPU 09/10/25 17:05 09/10/25 17:05 A&P Assessment and plan 1. Schizoaffective disorder, bipolar type: 2. Acute psychosis: Plan: This is a 45-year-old white female who is known to this television script writer [facility] psychiatry through inpatient and crisis services and presents with significant psychosis, paranoia, delusions and grandiosity off of her medications reporting she is taking natural remedies. 1. Abilify maintena given on 09/23/25. Continue abilify oral at 30mg daily. Patient refusing any medications for sleep. 2. Continue every 15 minute checks for safety. 3. Encourage individual, group and milieu therapies. 4. Will encourage trial of medication with a possible long acting injectable possibility. Discussed forced medication protocol. With 20 mg of Geodon IM for any refused doses of Abilify. 5. We will evaluate against the backdrop of the 96-hour hold. Patient placed on a 21-day hold. 6. Obtain collateral information. 7. Encouraged sober living treatment after discharge at the highest level of care to which she is willing to commit. Concerns that cannabis is either exacerbating or a cause of her clear forward psychosis. 8. Patient's wheelchair was taken from her given there is no indications of any physical limitations but only her somatic delusional content. She was very upset by the change and struggled with interacting with anyone after the change. 9. GOOD revealed assistance needed in 7/13 domains with suggestion that the patient require 24 hour supervision in order to live safely. Will complete level 2 with family possibly supporting obtaining Guardianship in [place]. Family pursuing emergency guardianship. 10. Filed paperwork in support of Level 2. Patient now under temporary guardianship under parents, we are seeking placement in locked facility. Patient appearing in better spirits recently discussing wanting to go to intermediate/locked facility. PDMP PDMP Reviewed: Not Reviewed Involuntary Hold Information 2 Hold Status: Legal Status: 96 Hour Hold Date/Time Hold Expires: 10/07/2025 Attestations NPU 2 Medical Necessity Statement*: Inpatient hospitalization is medically necessary and the clinically appropriate intervention at this time. We will monitor medications and make changes as indicated. The patient's likely length of stay is 5-7 days. Coding Level of Care Code Acute Code for [facility] Fwd Diagnoses Schizoaffective disorder, bipolar type F25.0 Acute psychosis F23
[2025-10-03 14:00] VITALS: BP 124/75; PULSE 102; RESP 16; TEMP 36.8; O2SAT 98
[2025-10-03 20:14] VITALS: BP 103/60; PULSE 76; RESP 17; TEMP 36.7; O2SAT 98
[2025-10-03] MEDS: MELATONIN 3 MG TABLET 9 MG PO (20:25)
[2025-10-04] MEDS: cetylpyridinium Lozenge 1 EACH MUCOUS MEM ×6 (00:29→20:38)
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
[2025-10-04 06:00] VITALS: BP 123/76; PULSE 90; RESP 16; TEMP 36.9; O2SAT 97
[2025-10-04] MEDS: polyethylene glycol 3350 Pkt 17 gm PO (08:21)
[2025-10-04] MEDS: sennosides-docusate Tablet 2 TAB PO (08:22)
[2025-10-04] MEDS: fluticasone nasal spray 16gm Btl 1 SPRAY NASAL ×2 (08:23→17:24)
[2025-10-04] MEDS: multivitamin therapeutic Tablet 1 TAB PO (08:23)
[2025-10-04 14:00] VITALS: BP 102/62; PULSE 99; RESP 17; TEMP 37.4; O2SAT 97
--- NOTE | 2025-10-04 16:10 | P.NPUPN_ITS ---
Subjective NPU 2 Subjective: Patient presented today reporting that she was doing okay. She continued to struggle with somatic complaints per staff reports and direct observation. Did speak with family and her parents were very interested in her situation but frustrated with their encounters with hospital thus far. We discussed the fact that I just came back on service and so I would review the past 11 days more intensely so the next time we talk I can give them some clarity. They were very open to her being on long-acting injectable and also was open to changes but wanted to be part of the discussion. Continue to discussed with patient the fact that we were looking for some kind of facility that would be an appropriate fit. She denied any specific side effects to medication but continued to lack insight per staff reports and direct conversation. Mental Status Exam 2 MSE Comments: This is a well-nourished well-developed white female in hospital scrubs with limited grooming and eye contact appearing older than her state age. There was no evidence of any abnormal involuntary motor movements. She was cooperative with exam. Her speech was normal in rate but very productive with normal volume. Mood described as okay. Her affect was brighter and less irritable. Her thought process was more linear with less derailment appreciated. Thought content: Patient denied suicidal or homicidal ideation. Continues to have significant delusions especially somatic. She did not report any auditory or visual hallucinations. Attention and concentration were better. She was alert and oriented to person and place and time. Insight is poor. Judgment is limited but improving and impulse control remained limited. Vitals/I&O/Wt Last Vital Signs Temp 99.4 F 10/04/25 14:00 Pulse 99 10/04/25 14:00 Resp 17 10/04/25 14:00 BP 102/62 10/04/25 14:00 Pulse Ox 97 10/04/25 14:00 O2 Del Method Room Air 10/04/25 14:00 Data NPU 09/10/25 17:05 09/10/25 17:05 A&P Assessment and plan 1. Schizoaffective disorder, bipolar type: 2. Acute psychosis: Plan: This is a 45-year-old white female who is known to this automobile service writer [facility] psychiatry through inpatient and crisis services and presents with significant psychosis, paranoia, delusions and grandiosity off of her medications reporting she is taking natural remedies. 1. Abilify maintena given on 09/23/25. Continue abilify oral at 30mg daily. Patient refusing any medications for sleep. May consider starting Invega as patient has some improvement however significant psychosis remains. 2. Continue every 15 minute checks for safety. 3. Encourage individual, group and milieu therapies. 4. Will encourage trial of medication with a possible long acting injectable possibility. Discussed forced medication protocol. With 20 mg of Geodon IM for any refused doses of Abilify. 5. We will evaluate against the backdrop of the 96-hour hold. Patient placed on a 21-day hold. 6. Obtain collateral information. 7. Encouraged sober living treatment after discharge at the highest level of care to which she is willing to commit. Concerns that cannabis is either exacerbating or a cause of her clear forward psychosis. 8. Patient's wheelchair was taken from her given there is no indications of any physical limitations but only her somatic delusional content. She was very upset by the change and struggled with interacting with anyone after the change. 9. GOOD revealed assistance needed in 7/13 domains with suggestion that the patient require 24 hour supervision in order to live safely. Will complete level 2 with family possibly supporting obtaining Guardianship in [place]. Family pursuing emergency guardianship. 10. Filed paperwork in support of Level 2. Patient now under temporary guardianship under parents, we are seeking placement in locked facility. Patient appearing in better spirits recently discussing wanting to go to longterm/locked facility. PDMP PDMP Reviewed: Not Reviewed Involuntary Hold Information 2 Hold Status: Legal Status: 96 Hour Hold Date/Time Hold Expires: 10/07/2025 Attestations NPU 2 Medical Necessity Statement*: Inpatient hospitalization is medically necessary and the clinically appropriate intervention at this time. We will monitor medications and make changes as indicated. The patient's likely length of stay is 5-7 days. Awaiting placement determination. Coding Level of Care Code Acute Code for [facility] Fwd Diagnoses Schizoaffective disorder, bipolar type F25.0 Acute psychosis F23
[2025-10-04 20:34] VITALS: BP 110/71; PULSE 87; RESP 16; TEMP 36.8; O2SAT 97
[2025-10-04] MEDS: MELATONIN 3 MG TABLET 9 MG PO (20:36)
[2025-10-05] MEDS: cetylpyridinium Lozenge 1 EACH MUCOUS MEM ×7 (04:30→20:07)
[2025-10-05 05:18] VITALS: BP 101/67; PULSE 84; RESP 17; TEMP 36.6; O2SAT 98
[2025-10-05] MEDS: multivitamin therapeutic Tablet 1 TAB PO (08:17)
[2025-10-05] MEDS: fluticasone nasal spray 16gm Btl 1 SPRAY NASAL ×2 (08:17→17:33)
[2025-10-05] MEDS: polyethylene glycol 3350 Pkt 17 gm PO (08:18)
[2025-10-05 13:33] VITALS: BP 108/63; PULSE 98; RESP 18; TEMP 36.7; O2SAT 98
--- NOTE | 2025-10-05 13:37 | P.NPUPN_ITS ---
Subjective NPU 2 Subjective: Patient presented today reporting that she is all right. We continue to talk about the somatic complaints that she has but identified that there is no evidence that any of her concerns have any validity. She continues to adjust to being on the Abilify Maintena injection. We discussed the possibility of starting Invega. She did not report any specific side effects of the medication. Mental Status Exam 2 MSE Comments: This is a well-nourished well-developed white female in hospital scrubs with limited grooming and eye contact appearing older than her state age. There was no evidence of any abnormal involuntary motor movements. She was cooperative with exam. Her speech was normal in rate but very productive with normal volume. Mood described as okay. Her affect was brighter and less irritable. Her thought process was more linear with less derailment appreciated. Thought content: Patient denied suicidal or homicidal ideation. Continues to have significant delusions especially somatic. She did not report any auditory or visual hallucinations. Attention and concentration were better. She was alert and oriented to person and place and time. Insight is poor. Judgment is limited but improving and impulse control remained limited. Vitals/I&O/Wt Last Vital Signs Temp 98.1 F 10/05/25 13:33 Pulse 98 10/05/25 13:33 Resp 18 10/05/25 13:33 BP 108/63 10/05/25 13:33 Pulse Ox 98 10/05/25 13:33 O2 Del Method Room Air 10/05/25 13:33 Data NPU 09/10/25 17:05 09/10/25 17:05 A&P Assessment and plan 1. Schizoaffective disorder, bipolar type: 2. Acute psychosis: Plan: This is a 45-year-old white female who is known to this insurance writer [facility] psychiatry through inpatient and crisis services and presents with significant psychosis, paranoia, delusions and grandiosity off of her medications reporting she is taking natural remedies. 1. Abilify maintena given on 09/23/25. Continue abilify oral at 30mg daily. Patient refusing any medications for sleep. May consider starting Invega as patient has some improvement however significant psychosis remains. May consider decreasing Abilify oral and adding the Invega. 2. Continue every 15 minute checks for safety. 3. Encourage individual, group and milieu therapies. 4. Will encourage trial of medication with a possible long acting injectable possibility. Discussed forced medication protocol. With 20 mg of Geodon IM for any refused doses of Abilify. 5. We will evaluate against the backdrop of the 96-hour hold. Patient placed on a 21-day hold. 6. Obtain collateral information. 7. Encouraged sober living treatment after discharge at the highest level of care to which she is willing to commit. Concerns that cannabis is either exacerbating or a cause of her clear forward psychosis. 8. Patient's wheelchair was taken from her given there is no indications of any physical limitations but only her somatic delusional content. She was very upset by the change and struggled with interacting with anyone after the change. 9. GOOD revealed assistance needed in 7/13 domains with suggestion that the patient require 24 hour supervision in order to live safely. Will complete level 2 with family possibly supporting obtaining Guardianship in [place]. Family pursuing emergency guardianship. 10. Filed paperwork in support of Level 2. Patient now under temporary guardianship under parents, we are seeking placement in locked facility. Patient appearing in better spirits recently discussing wanting to go to detention/locked facility. PDMP PDMP Reviewed: Not Reviewed Involuntary Hold Information 2 Hold Status: Legal Status: 96 Hour Hold Date/Time Hold Expires: 10/07/2025 Attestations NPU 2 Medical Necessity Statement*: Inpatient hospitalization is medically necessary and the clinically appropriate intervention at this time. We will monitor medications and make changes as indicated. The patient's likely length of stay is 5-7 days. Awaiting placement determination. Coding Level of Care Code Acute Code for [facility] Diagnoses Schizoaffective disorder, bipolar type F25.0 Acute psychosis F23
[2025-10-05] MEDS: MELATONIN 3 MG TABLET 9 MG PO (20:07)
[2025-10-05 20:15] VITALS: BP 109/68; PULSE 84; RESP 17; TEMP 36.8; O2SAT 98
[2025-10-05 21:11] VITALS: BMI 23.7
[2025-10-06] MEDS: cetylpyridinium Lozenge 1 EACH MUCOUS MEM ×6 (01:43→20:13)
[2025-10-06 03:46] VITALS: BP 129/80; PULSE 78; RESP 18; TEMP 36.7; O2SAT 100
--- NOTE | 2025-10-06 06:02 | W.PM.NPUPNS ---
Subjective NPU Subjective: Patient presented today reporting that things are going okay. She continues to be very somatically preoccupied per staff reports and direct observation. Conversation surrounding sinus drainage and headaches and heart concerns excetra. She is taking the medication as prescribed and denied any side effects of the medication. Mental Status Exam MSE Comments: This is a well-nourished well-developed white female in hospital scrubs with limited grooming and eye contact. With a towel on her head. There was no evidence of any abnormal involuntary motor movements. She was cooperative with exam. Her speech was normal in rate but very productive with normal volume. Mood described as okay. Her affect was brighter and less irritable. Her thought process was more linear with less derailment appreciated. Thought content: Patient denied suicidal or homicidal ideation. Continues to have significant delusions especially somatic. She did not report any auditory or visual hallucinations. Attention and concentration were better. She was alert and oriented to person and place and time. Insight is poor. Judgment is limited but improving and impulse control remained limited. Vitals/I&O/Wt Last Vital Signs Temp 98.0 F 10/06/25 03:46 Pulse 78 10/06/25 03:46 Resp 18 10/06/25 03:46 BP 129/80 10/06/25 03:46 Pulse Ox 100 10/06/25 03:46 O2 Del Method Room Air 10/06/25 03:46 Weight last 48 hrs Weight 62.709 kg Data NPU 09/10/25 17:05 09/10/25 17:05 A&P Assessment and plan 1. Schizoaffective disorder, bipolar type: 2. Acute psychosis: Plan: This is a 45-year-old white female who is known to this mortgage loan underwriter [facility] psychiatry through inpatient and crisis services and presents with significant psychosis, paranoia, delusions and grandiosity off of her medications reporting she is taking natural remedies. 1. Abilify maintena given on 09/23/25. Continue abilify oral at 30mg daily. Patient refusing any medications for sleep. May consider starting Invega as patient has some improvement however significant psychosis remains. May consider decreasing Abilify oral and adding the Invega. 2. Continue every 15 minute checks for safety. 3. Encourage individual, group and milieu therapies. 4. Will encourage trial of medication with a possible long acting injectable possibility. Discussed forced medication protocol. With 20 mg of Geodon IM for any refused doses of Abilify. 5. We will evaluate against the backdrop of the 96-hour hold. Patient placed on a 21-day hold. 6. Obtain collateral information. 7. Encouraged sober living treatment after discharge at the highest level of care to which she is willing to commit. Concerns that cannabis is either exacerbating or a cause of her clear forward psychosis. 8. Patient's wheelchair was taken from her given there is no indications of any physical limitations but only her somatic delusional content. She was very upset by the change and struggled with interacting with anyone after the change. 9. GOOD revealed assistance needed in 7/13 domains with suggestion that the patient require 24 hour supervision in order to live safely. Will complete level 2 with family possibly supporting obtaining Guardianship in [place]. Family pursuing emergency guardianship. 10. Filed paperwork in support of Level 2. Patient now under temporary guardianship under parents, we are seeking placement in locked facility. Patient appearing in better spirits recently discussing wanting to go to [facility]/locked facility. PDMP PDMP Reviewed: Not Reviewed Involuntary Hold Information Hold Status: Legal Status: 96 Hour Hold Date/Time Hold Expires: 10/07/2025 Attestations NPU Medical Necessity Statement*: Inpatient hospitalization is medically necessary and the clinically appropriate intervention at this time. We will monitor medications and make changes as indicated. The patient's likely length of stay is 5-7 days. Awaiting placement determination. Coding Level of Care Code Acute Code for [facility] Diagnoses Schizoaffective disorder, bipolar type F25.0 Acute psychosis F23
[2025-10-06] MEDS: multivitamin therapeutic Tablet 1 TAB PO (07:52)
[2025-10-06] MEDS: polyethylene glycol 3350 Pkt 17 gm PO (09:28)
[2025-10-06] MEDS: fluticasone nasal spray 16gm Btl 1 SPRAY NASAL ×2 (09:28→17:22)
--- NOTE | 2025-10-06 10:12 | PC.NURSE ---
Pt. came up to nurse station and asked if they tested for THC in the RCF's. If she was to take a THC gummie was that allowed. Signee informed pt. that i was not familiar with the rules of the RCF.
[2025-10-06] MEDS: sennosides-docusate Tablet 2 TAB PO (12:10)
[2025-10-06 14:00] VITALS: BP 120/72; PULSE 87; RESP 15; TEMP 36.9; O2SAT 99
[2025-10-06] MEDS: MELATONIN 3 MG TABLET 9 MG PO (20:13)
[2025-10-06 20:58] VITALS: BP 108/60; PULSE 81; RESP 17; TEMP 36.9; O2SAT 99
[2025-10-07 06:00] VITALS: BP 127/86; PULSE 79; RESP 18; TEMP 36.7; O2SAT 99
[2025-10-07] MEDS: cetylpyridinium Lozenge 1 EACH MUCOUS MEM ×3 (06:18→20:13)
[2025-10-07] MEDS: fluticasone nasal spray 16gm Btl 1 SPRAY NASAL ×2 (07:40→17:20)
[2025-10-07] MEDS: multivitamin therapeutic Tablet 1 TAB PO (07:40)
[2025-10-07] MEDS: polyethylene glycol 3350 Pkt 17 gm PO (07:40)
[2025-10-07 13:57] VITALS: BP 127/80; PULSE 98; RESP 16; TEMP 36.8; O2SAT 98
--- NOTE | 2025-10-07 14:16 | P.NPUPN_ITS ---
Subjective NPU 2 Subjective: Patient presented today reporting that she is doing all right. She continued to struggle with small improvements but also continued to be highly somatic per staff reports and direct communication. We continue to conversation that we started previously about possibly adding Invega to her regimen in an attempt to try to push back more psychosis than the Tiffany is managing independently. She is very stuck on thoughts about the use of cannabis and why it might not be problematic for her. We discussed the need for sobriety to ensure her sanity. She was focused on possibly getting some naturopathic options. She denied any side effects to the medication. Mental Status Exam 2 MSE Comments: This is a well-nourished well-developed white female in hospital scrubs with limited grooming and eye contact. With a towel on her head. There was no evidence of any abnormal involuntary motor movements. She was cooperative with exam. Her speech was normal in rate but very productive with normal volume. Mood described as okay. Her affect was brighter and less irritable. Her thought process was more linear with less derailment appreciated. Thought content: Patient denied suicidal or homicidal ideation. Continues to have significant delusions especially somatic. She did not report any auditory or visual hallucinations. Attention and concentration were better. She was alert and oriented to person and place and time. Insight is poor. Judgment is limited but improving and impulse control remained limited. Vitals/I&O/Wt Last Vital Signs Temp 98.3 F 10/07/25 13:57 Pulse 98 10/07/25 13:57 Resp 16 10/07/25 13:57 BP 127/80 10/07/25 13:57 Pulse Ox 98 10/07/25 13:57 O2 Del Method Room Air 10/07/25 13:57 Weight last 48 hrs Weight 62.709 kg Data NPU 09/10/25 17:05 09/10/25 17:05 A&P Assessment and plan 1. Schizoaffective disorder, bipolar type: 2. Acute psychosis: Plan: This is a 45-year-old white female who is known to this database report writer [facility] psychiatry through inpatient and crisis services and presents with significant psychosis, paranoia, delusions and grandiosity off of her medications reporting she is taking natural remedies. 1. Abilify maintena given on 09/23/25. Continue abilify oral at 30mg daily. Patient refusing any medications for sleep. May consider starting Invega as patient has some improvement however significant psychosis remains. May consider decreasing Abilify oral and adding the Invega. 2. Continue every 15 minute checks for safety. 3. Encourage individual, group and milieu therapies. 4. Will encourage trial of medication with a possible long acting injectable possibility. Discussed forced medication protocol. With 20 mg of Geodon IM for any refused doses of Abilify. 5. We will evaluate against the backdrop of the 96-hour hold. Patient placed on a 21-day hold. 6. Obtain collateral information. 7. Encouraged sober living treatment after discharge at the highest level of care to which she is willing to commit. Concerns that cannabis is either exacerbating or a cause of her clear forward psychosis. 8. Patient's wheelchair was taken from her given there is no indications of any physical limitations but only her somatic delusional content. She was very upset by the change and struggled with interacting with anyone after the change. 9. GOOD revealed assistance needed in 7/13 domains with suggestion that the patient require 24 hour supervision in order to live safely. Will complete level 2 with family possibly supporting obtaining Guardianship in [place]. Family pursuing emergency guardianship. 10. Filed paperwork in support of Level 2. Patient now under temporary guardianship under parents, we are seeking placement in locked facility. Patient appearing in better spirits recently discussing wanting to go to [facility]/locked facility. PDMP PDMP Reviewed: Not Reviewed Involuntary Hold Information 2 Hold Status: Legal Status: Active Guardianship Date/Time Hold Expires: 12/01/24 Attestations NPU 2 Medical Necessity Statement*: Inpatient hospitalization is medically necessary and the clinically appropriate intervention at this time. We will monitor medications and make changes as indicated. The patient's likely length of stay is 5-7 days. Awaiting placement determination. Coding Level of Care Code Acute Code for [facility] Fwd Diagnoses Schizoaffective disorder, bipolar type F25.0 Acute psychosis F23
[2025-10-07] MEDS: MELATONIN 3 MG TABLET 9 MG PO (20:13)
[2025-10-07 20:55] VITALS: BP 130/85; PULSE 74; RESP 18; TEMP 36.9; O2SAT 99
[2025-10-08] MEDS: cetylpyridinium Lozenge 1 EACH MUCOUS MEM ×6 (00:41→20:07)
[2025-10-08 06:00] VITALS: BP 117/78; PULSE 86; RESP 17; TEMP 37; O2SAT 96
[2025-10-08] MEDS: blistex lip oint 7 gm Tube 1 APPLIC TOPICAL ×2 (07:38→20:10)
[2025-10-08] MEDS: fluticasone nasal spray 16gm Btl 1 SPRAY NASAL ×2 (07:39→17:09)
[2025-10-08] MEDS: multivitamin therapeutic Tablet 1 TAB PO (07:40)
[2025-10-08] MEDS: polyethylene glycol 3350 Pkt 17 gm PO (07:40)
[2025-10-08 13:56] VITALS: BP 101/64; PULSE 88; RESP 16; TEMP 36.6; O2SAT 98
--- NOTE | 2025-10-08 17:38 | P.NPUPN_ITS ---
Subjective NPU 2 Subjective: Patient presented today reporting that she is fine. When an extensive conversation about the Invega which she got a medication sheet for and she went on and on about the possible side effects and how that would be a problem. We had a discussion about the fact that the list is not about the side effects that we will happen but possible complications to her medication. She did not possess the insight for that however we did discuss that we are going to talk to her parents who are other guardians and see what they would like us to do. She denied any side effects her current medications but continue to spend a lot of the time of our interactions talking about somatic concerns that were not real. Mental Status Exam 2 MSE Comments: This is a well-nourished well-developed white female in hospital scrubs with limited grooming and eye contact. With a towel on her head. There was no evidence of any abnormal involuntary motor movements. She was cooperative with exam. Her speech was normal in rate but very productive with normal volume. Mood described as okay. Her affect was brighter and less irritable. Her thought process was more linear with less derailment appreciated. Thought content: Patient denied suicidal or homicidal ideation. Continues to have significant delusions especially somatic. She did not report any auditory or visual hallucinations. Attention and concentration were better. She was alert and oriented to person and place and time. Insight is poor. Judgment is limited but improving and impulse control remained limited. Vitals/I&O/Wt Last Vital Signs Temp 98 F 10/08/25 13:56 Pulse 88 10/08/25 13:56 Resp 16 10/08/25 13:56 BP 101/64 10/08/25 13:56 Pulse Ox 98 10/08/25 13:56 O2 Del Method Room Air 10/08/25 13:56 Data NPU 09/10/25 17:05 09/10/25 17:05 A&P Assessment and plan 1. Schizoaffective disorder, bipolar type: 2. Acute psychosis: Plan: This is a 45-year-old white female who is known to this tag writer [facility] psychiatry through inpatient and crisis services and presents with significant psychosis, paranoia, delusions and grandiosity off of her medications reporting she is taking natural remedies. 1. Abilify maintena given on 09/23/25. Continue abilify oral at 30mg daily. Patient refusing any medications for sleep. May consider starting Invega as patient has some improvement however significant psychosis remains. May consider decreasing Abilify oral and adding the Invega. 2. Continue every 15 minute checks for safety. 3. Encourage individual, group and milieu therapies. 4. Will encourage trial of medication with a possible long acting injectable possibility. Discussed forced medication protocol. With 20 mg of Geodon IM for any refused doses of Abilify. 5. We will evaluate against the backdrop of the 96-hour hold. Patient placed on a 21-day hold. 6. Obtain collateral information. 7. Encouraged sober living treatment after discharge at the highest level of care to which she is willing to commit. Concerns that cannabis is either exacerbating or a cause of her clear forward psychosis. 8. Patient's wheelchair was taken from her given there is no indications of any physical limitations but only her somatic delusional content. She was very upset by the change and struggled with interacting with anyone after the change. 9. GOOD revealed assistance needed in 7/13 domains with suggestion that the patient require 24 hour supervision in order to live safely. Will complete level 2 with family possibly supporting obtaining Guardianship in [place]. Family pursuing emergency guardianship. 10. Filed paperwork in support of Level 2. Patient now under temporary guardianship under parents, we are seeking placement in locked facility. Patient appearing in better spirits recently discussing wanting to go to halfway/locked facility. PDMP PDMP Reviewed: Not Reviewed Involuntary Hold Information 2 Hold Status: Legal Status: Active Guardianship Date/Time Hold Expires: 12/01/24 Attestations NPU 2 Medical Necessity Statement*: Inpatient hospitalization is medically necessary and the clinically appropriate intervention at this time. We will monitor medications and make changes as indicated. The patient's likely length of stay is 5-7 days. Awaiting placement determination. Coding Level of Care Code Acute Code for [facility] Fwd Diagnoses Schizoaffective disorder, bipolar type F25.0 Acute psychosis F23
[2025-10-08 20:07] VITALS: BP 129/80; PULSE 87; RESP 16; TEMP 37.2; O2SAT 98
[2025-10-08] MEDS: MELATONIN 3 MG TABLET 9 MG PO (20:08)
[2025-10-09 06:00] VITALS: BP 107/62; PULSE 88; RESP 16; TEMP 37; O2SAT 98
[2025-10-09] MEDS: cetylpyridinium Lozenge 1 EACH MUCOUS MEM ×5 (06:38→22:33)
[2025-10-09] MEDS: multivitamin therapeutic Tablet 1 TAB PO (07:54)
[2025-10-09] MEDS: fluticasone nasal spray 16gm Btl 1 SPRAY NASAL ×2 (07:54→18:01)
[2025-10-09] MEDS: polyethylene glycol 3350 Pkt 17 gm PO (07:54)
--- NOTE | 2025-10-09 12:02 | P.NPUPN_ITS ---
Subjective NPU 2 Subjective: Patient presented today reporting that she is okay and did hear about there being a possible interested libertarian for her. We discussed continued thoughts about changes in her medication including possibly decreasing or discontinuing the oral Abilify and replacing it with Invega for some possible synergistic effect. She continues to be resistant to medication in general wanting to talk about 5 HTP and other natural solutions. We discussed an openness to transfer her when the bed is available. She denied any side effects to the medication. Mental Status Exam 2 MSE Comments: This is a well-nourished well-developed white female in hospital scrubs with limited grooming and eye contact. With a towel on her head. There was no evidence of any abnormal involuntary motor movements. She was cooperative with exam. Her speech was normal in rate but very productive with normal volume. Mood described as okay. Her affect was brighter and less irritable. Her thought process was more linear with less derailment appreciated. Thought content: Patient denied suicidal or homicidal ideation. Continues to have significant delusions especially somatic. She did not report any auditory or visual hallucinations. Attention and concentration were better. She was alert and oriented to person and place and time. Insight is poor. Judgment is limited but improving and impulse control remained limited. Vitals/I&O/Wt Last Vital Signs Temp 98.6 F 10/09/25 06:00 Pulse 88 10/09/25 06:00 Resp 16 10/09/25 06:00 BP 107/62 10/09/25 06:00 Pulse Ox 98 10/09/25 06:00 O2 Del Method Room Air 10/09/25 06:00 Data NPU 09/10/25 17:05 09/10/25 17:05 A&P Assessment and plan 1. Schizoaffective disorder, bipolar type: 2. Acute psychosis: Plan: This is a 45-year-old white female who is known to this insurance underwriter [facility] psychiatry through inpatient and crisis services and presents with significant psychosis, paranoia, delusions and grandiosity off of her medications reporting she is taking natural remedies. 1. Abilify maintena given on 09/23/25. Continue abilify oral at 30mg daily. Patient refusing any medications for sleep. May consider starting Invega as patient has some improvement however significant psychosis remains. May consider decreasing Abilify oral and adding the Invega. 2. Continue every 15 minute checks for safety. 3. Encourage individual, group and milieu therapies. 4. Will encourage trial of medication with a possible long acting injectable possibility. Discussed forced medication protocol. With 20 mg of Geodon IM for any refused doses of Abilify. 5. We will evaluate against the backdrop of the 96-hour hold. Patient placed on a 21-day hold. 6. Obtain collateral information. 7. Encouraged sober living treatment after discharge at the highest level of care to which she is willing to commit. Concerns that cannabis is either exacerbating or a cause of her clear forward psychosis. 8. Patient's wheelchair was taken from her given there is no indications of any physical limitations but only her somatic delusional content. She was very upset by the change and struggled with interacting with anyone after the change. 9. GOOD revealed assistance needed in 7/13 domains with suggestion that the patient require 24 hour supervision in order to live safely. Will complete level 2 with family possibly supporting obtaining Guardianship in [place]. Family pursuing emergency guardianship. 10. Filed paperwork in support of Level 2. Patient now under temporary guardianship under parents, we are seeking placement in locked facility. Patient appearing in better spirits recently discussing wanting to go to care home/locked facility. PDMP PDMP Reviewed: Not Reviewed Involuntary Hold Information 2 Hold Status: Legal Status: Active Guardianship Date/Time Hold Expires: 1 12/01/24 Attestations NPU 2 Medical Necessity Statement*: Inpatient hospitalization is medically necessary and the clinically appropriate intervention at this time. We will monitor medications and make changes as indicated. The patient's likely length of stay is 5-7 days. Awaiting placement determination. Coding Level of Care Code Acute Code for g Fwd Diagnoses Schizoaffective disorder, bipolar type F25.0 Acute psychosis F23
[2025-10-09 14:00] VITALS: BP 122/81; PULSE 104; RESP 16; TEMP 36.6; O2SAT 98
[2025-10-09] MEDS: MELATONIN 3 MG TABLET 9 MG PO (20:02)
[2025-10-09 20:05] VITALS: BP 125/79; PULSE 81; RESP 16; TEMP 37.2; O2SAT 100
[2025-10-10] MEDS: cetylpyridinium Lozenge 1 EACH MUCOUS MEM ×5 (03:01→20:32)
[2025-10-10 06:00] VITALS: BP 109/68; PULSE 95; RESP 16; TEMP 37; O2SAT 98
[2025-10-10] MEDS: fluticasone nasal spray 16gm Btl 1 SPRAY NASAL ×2 (07:50→17:31)
[2025-10-10] MEDS: multivitamin therapeutic Tablet 1 TAB PO (07:52)
[2025-10-10 14:00] VITALS: BP 125/82; PULSE 107; RESP 17; O2SAT 99
--- NOTE | 2025-10-10 15:08 | P.NPUPN_ITS ---
Subjective NPU 2 Subjective: Patient presented today reporting she is okay. Patient noted to not have a headdress on and she continues to have some somatic complaints and was hyperfocused on 1 program that is considering taking her prompting her guardians to suggest that maybe we not tell her about the places that consider her for fear she might sabotage the situation. She continues to take the medication as prescribed and did not report any side effects of the medication though she continued to be very somatic in her complaints including wanting to be put on a decongestant Mental Status Exam 2 MSE Comments: This is a well-nourished well-developed white female in hospital scrubs with limited grooming and eye contact. No longer with a towel on her head. There was no evidence of any abnormal involuntary motor movements. She was cooperative with exam. Her speech was normal in rate but very productive with normal volume. Mood described as okay. Her affect was brighter and less irritable. Her thought process was more linear with less derailment appreciated. Thought content: Patient denied suicidal or homicidal ideation. Continues to have significant delusions especially somatic. She did not report any auditory or visual hallucinations. Attention and concentration were better. She was alert and oriented to person and place and time. Insight is poor. Judgment is limited but improving and impulse control remained limited. Vitals/I&O/Wt Last Vital Signs Temp 98.6 F 10/10/25 06:00 Pulse 95 10/10/25 06:00 Resp 16 10/10/25 06:00 BP 109/68 10/10/25 06:00 Pulse Ox 98 10/10/25 06:00 O2 Del Method Room Air 10/10/25 06:00 10/10/25 10/10/25 10/10/25 06:59 14:59 22:59 Intake Total 0 / 0 Balance 0 / 0 Data NPU 09/10/25 17:05 09/10/25 17:05 A&P Assessment and plan 1. Schizoaffective disorder, bipolar type: 2. Acute psychosis: Plan: This is a 45-year-old white female who is known to this policy writer typist [facility] psychiatry through inpatient and crisis services and presents with significant psychosis, paranoia, delusions and grandiosity off of her medications reporting she is taking natural remedies. 1. Abilify maintena given on 09/23/25. Continue abilify oral at 30mg daily. Patient refusing any medications for sleep. May consider starting Invega as patient has some improvement however significant psychosis remains. May consider decreasing Abilify oral and adding the Invega. 2. Continue every 15 minute checks for safety. 3. Encourage individual, group and milieu therapies. 4. Will encourage trial of medication with a possible long acting injectable possibility. Discussed forced medication protocol. With 20 mg of Geodon IM for any refused doses of Abilify. 5. We will evaluate against the backdrop of the 96-hour hold. Patient placed on a 21-day hold, but now she has a guardian. 6. Obtain collateral information. 7. Encouraged sober living treatment after discharge at the highest level of care to which she is willing to commit. Concerns that cannabis is either exacerbating or a cause of her clear forward psychosis. 8. Patient's wheelchair was taken from her given there is no indications of any physical limitations but only her somatic delusional content. She was very upset by the change and struggled with interacting with anyone after the change. 9. GOOD revealed assistance needed in 7/13 domains with suggestion that the patient require 24 hour supervision in order to live safely. Will complete level 2 with family possibly supporting obtaining Guardianship in [place]. Family pursuing emergency guardianship. 10. Filed paperwork in support of Level 2. Patient now under temporary guardianship under parents, we are seeking placement in locked facility. Patient appearing in better spirits recently discussing wanting to go to [facility]locked facility. There are a few programs assessing her for acceptance for placement. PDMP PDMP Reviewed: Not Reviewed Involuntary Hold Information 2 Hold Status: Legal Status: Active Guardianship Date/Time Hold Expires: 1 12/01/24 Attestations NPU 2 Medical Necessity Statement*: Inpatient hospitalization is medically necessary and the clinically appropriate intervention at this time. We will monitor medications and make changes as indicated. The patient's likely length of stay is 4-6 days. Awaiting placement determination. Coding Level of Care Code Acute Code for Chg Fwd Diagnoses Schizoaffective disorder, bipolar type F25.0 Acute psychosis F23
[2025-10-10] MEDS: blistex lip oint 7 gm Tube 1 APPLIC TOPICAL (16:16)
[2025-10-10] MEDS: MELATONIN 3 MG TABLET 9 MG PO (20:34)
[2025-10-10 20:46] VITALS: BP 113/68; PULSE 86; RESP 18; TEMP 36.9; O2SAT 97
[2025-10-11] MEDS: cetylpyridinium Lozenge 1 EACH MUCOUS MEM ×3 (01:54→14:31)
[2025-10-11 06:00] VITALS: BP 115/72; PULSE 92; RESP 18; TEMP 36.9; O2SAT 98
[2025-10-11] MEDS: multivitamin therapeutic Tablet 1 TAB PO (07:48)
[2025-10-11] MEDS: polyethylene glycol 3350 Pkt 17 gm PO (07:48)
[2025-10-11] MEDS: fluticasone nasal spray 16gm Btl 1 SPRAY NASAL ×2 (07:48→18:10)
[2025-10-11] MEDS: blistex lip oint 7 gm Tube 1 APPLIC TOPICAL (12:08)
--- NOTE | 2025-10-11 12:39 | P.NPUPN_ITS ---
Subjective NPU 2 Subjective: Patient presented today reporting that she is doing all right. Family contacted hospital and is wondering about her placement as well as her Invega injection . We had discussed the possibility of initiating Invega but patient had refused and we were going to talk to her and her family about the possibility. We discussed reaching out to them and seeing what they like us to do and to see if she would take the medication without needing a forced medication protocol. Otherwise she continues to show slow improvements continuing to be without a towel on her head from today side effects to the medication. Mental Status Exam 2 MSE Comments: This is a well-nourished well-developed white female in hospital scrubs with limited grooming and eye contact. No longer with a towel on her head. There was no evidence of any abnormal involuntary motor movements. She was cooperative with exam. Her speech was normal in rate but very productive with normal volume. Mood described as okay. Her affect was brighter and less irritable. Her thought process was more linear with less derailment appreciated. Thought content: Patient denied suicidal or homicidal ideation. Continues to have significant delusions especially somatic. She did not report any auditory or visual hallucinations. Attention and concentration were better. She was alert and oriented to person and place and time. Insight is poor. Judgment is limited but improving and impulse control remained limited. Vitals/I&O/Wt Last Vital Signs Temp 98.4 F 10/11/25 06:00 Pulse 92 10/11/25 06:00 Resp 18 10/11/25 06:00 BP 115/72 10/11/25 06:00 Pulse Ox 98 10/11/25 06:00 O2 Del Method Room Air 10/11/25 06:00 Data NPU 09/10/25 17:05 09/10/25 17:05 A&P Assessment and plan 1. Schizoaffective disorder, bipolar type: 2. Acute psychosis: Plan: This is a 45-year-old white female who is known to this underwriter solicitation director [facility] psychiatry through inpatient and crisis services and presents with significant psychosis, paranoia, delusions and grandiosity off of her medications reporting she is taking natural remedies. 1. Abilify maintena given on 09/23/25. Continue abilify oral at 30mg daily. Patient refusing any medications for sleep. May consider starting Invega as patient has some improvement however significant psychosis remains. May consider decreasing Abilify oral and adding the Invega. 2. Continue every 15 minute checks for safety. 3. Encourage individual, group and milieu therapies. 4. Will encourage trial of medication with a possible long acting injectable possibility. Discussed forced medication protocol. With 20 mg of Geodon IM for any refused doses of Abilify. 5. We will evaluate against the backdrop of the 96-hour hold. Patient placed on a 21-day hold, but now she has a guardian. 6. Obtain collateral information. 7. Encouraged sober living treatment after discharge at the highest level of care to which she is willing to commit. Concerns that cannabis is either exacerbating or a cause of her clear forward psychosis. 8. Patient's wheelchair was taken from her given there is no indications of any physical limitations but only her somatic delusional content. She was very upset by the change and struggled with interacting with anyone after the change. 9. GOOD revealed assistance needed in 7/13 domains with suggestion that the patient require 24 hour supervision in order to live safely. Will complete level 2 with family possibly supporting obtaining Guardianship in [place]. Family pursuing emergency guardianship. 10. Filed paperwork in support of Level 2. Patient now under temporary guardianship under parents, we are seeking placement in locked facility. Patient appearing in better spirits recently discussing wanting to go to long term/locked facility. There are a few programs assessing her for acceptance for placement. PDMP PDMP Reviewed: Not Reviewed Involuntary Hold Information 2 Hold Status: Legal Status: Active Guardianship Date/Time Hold Expires: 12/01/24 Attestations NPU 2 Medical Necessity Statement*: Inpatient hospitalization is medically necessary and the clinically appropriate intervention at this time. We will monitor medications and make changes as indicated. The patient's likely length of stay is 4-6 days. Awaiting placement determination. Coding Level of Care Code Acute Code for [facility] Fwd Diagnoses Schizoaffective disorder, bipolar type F25.0 Acute psychosis F23
[2025-10-11 14:00] VITALS: BP 122/74; PULSE 110; RESP 19; TEMP 36.8; O2SAT 100
[2025-10-11] MEDS: MELATONIN 3 MG TABLET 9 MG PO (20:27)
[2025-10-11 20:37] VITALS: BP 121/75; PULSE 91; RESP 16; TEMP 36.9; O2SAT 98
[2025-10-12] MEDS: cetylpyridinium Lozenge 1 EACH MUCOUS MEM ×5 (00:05→20:13)
[2025-10-12 06:00] VITALS: BP 115/71; PULSE 91; RESP 16; TEMP 36.8; O2SAT 95
[2025-10-12] MEDS: fluticasone nasal spray 16gm Btl 1 SPRAY NASAL ×2 (07:56→17:18)
[2025-10-12] MEDS: sennosides-docusate Tablet 2 TAB PO (07:56)
[2025-10-12] MEDS: multivitamin therapeutic Tablet 1 TAB PO (07:57)
--- NOTE | 2025-10-12 13:00 | P.NPUPN_ITS ---
Subjective NPU 2 Subjective: Patient presents today reporting that she is doing okay. She was continuing to not have a towel on which could contribute to previous sinus slow improvement per staff reports and direct observation. She continues to be quite somatic in her conversation which is also endorsed by staff and noted on direct observation talking extensively about headaches and migraines and congestion and how her body was methylating and carboxylating things. She appeared to hear my argument finally of decreasing the oral Abilify and replacing it with Invega in hopes that it might work synergistically to help with her thinking though she continued to suggest that the simple solution was giving her cannabis again. She denied any side effects to the medication but agreed that maybe the Abilify was too much. Mental Status Exam 2 MSE Comments: This is a well-nourished well-developed white female in hospital scrubs with limited grooming and eye contact. No longer with a towel on her head. There was no evidence of any abnormal involuntary motor movements. She was cooperative with exam. Her speech was normal in rate but very productive with normal volume. Mood described as okay. Her affect was brighter and less irritable. Her thought process was more linear with less derailment appreciated. Thought content: Patient denied suicidal or homicidal ideation. Continues to have significant delusions especially somatic. She did not report any auditory or visual hallucinations. Attention and concentration were better. She was alert and oriented to person and place and time. Insight is poor. Judgment is limited but improving and impulse control remained limited. Vitals/I&O/Wt Last Vital Signs Temp 98.2 F 10/12/25 06:00 Pulse 91 10/12/25 06:00 Resp 16 10/12/25 06:00 BP 115/71 10/12/25 06:00 Pulse Ox 95 10/12/25 06:00 O2 Del Method Room Air 10/12/25 06:00 Data NPU 09/10/25 17:05 09/10/25 17:05 A&P Assessment and plan 1. Schizoaffective disorder, bipolar type: 2. Acute psychosis: Plan: This is a 45-year-old white female who is known to this clinical writer [facility] psychiatry through inpatient and crisis services and presents with significant psychosis, paranoia, delusions and grandiosity off of her medications reporting she is taking natural remedies. 1. Abilify maintena given on 09/23/25. Continue abilify oral at 30mg daily. Patient refusing any medications for sleep. May consider starting Invega as patient has some improvement however significant psychosis remains. May consider decreasing Abilify oral and adding the Invega. Patient agreed to starting to decrease the oral Abilify starting tomorrow at 15 mg for 2 days then 7.5 mg for 2 days then 5 mg for 2 days then discontinue while we initiate Invega 3 mg and then titrate to effect. Next Abilify injection due 10/21/2025. Should likely try to get the Asimtufii. 2. Continue every 15 minute checks for safety. 3. Encourage individual, group and milieu therapies. 4. Will encourage trial of medication with a possible long acting injectable possibility. Discussed forced medication protocol. With 20 mg of Geodon IM for any refused doses of Abilify. 5. We will evaluate against the backdrop of the 96-hour hold. Patient placed on a 21-day hold, but now she has a guardian. 6. Obtain collateral information. 7. Encouraged sober living treatment after discharge at the highest level of care to which she is willing to commit. Concerns that cannabis is either exacerbating or a cause of her clear forward psychosis. 8. Patient's wheelchair was taken from her given there is no indications of any physical limitations but only her somatic delusional content. She was very upset by the change and struggled with interacting with anyone after the change. 9. GOOD revealed assistance needed in 7/13 domains with suggestion that the patient require 24 hour supervision in order to live safely. Will complete level 2 with family possibly supporting obtaining Guardianship in [place]. Family pursuing emergency guardianship. 10. Filed paperwork in support of Level 2. Patient now under temporary guardianship under parents, we are seeking placement in locked facility. Patient appearing in better spirits recently discussing wanting to go to prison/locked facility. There are a few programs assessing her for acceptance for placement. PDMP PDMP Reviewed: Not Reviewed Involuntary Hold Information 2 Hold Status: Legal Status: Active Guardianship Date/Time Hold Expires: 1 12/01/24 Attestations NPU 2 Medical Necessity Statement*: Inpatient hospitalization is medically necessary and the clinically appropriate intervention at this time. We will monitor medications and make changes as indicated. The patient's likely length of stay is 4-6 days. Awaiting placement determination. Coding Level of Care Code Acute Code for g Fwd Diagnoses Schizoaffective disorder, bipolar type F25.0 Acute psychosis F23
[2025-10-12 14:00] VITALS: BP 114/77; PULSE 89; RESP 15; TEMP 37.1; O2SAT 98
[2025-10-12] MEDS: MELATONIN 3 MG TABLET 9 MG PO (20:13)
[2025-10-12 21:01] VITALS: BP 115/57; PULSE 106; RESP 16; TEMP 37.2; O2SAT 95
[2025-10-13 05:51] VITALS: BP 125/76; PULSE 92; RESP 16; TEMP 36.5; O2SAT 98
[2025-10-13] MEDS: cetylpyridinium Lozenge 1 EACH MUCOUS MEM ×3 (08:06→20:09)
[2025-10-13] MEDS: sennosides-docusate Tablet 2 TAB PO (08:07)
[2025-10-13] MEDS: polyethylene glycol 3350 Pkt 17 gm PO (08:13)
[2025-10-13] MEDS: fluticasone nasal spray 16gm Btl 1 SPRAY NASAL ×2 (08:15→17:59)
[2025-10-13] MEDS: multivitamin therapeutic Tablet 1 TAB PO (08:16)
[2025-10-13 12:59] VITALS: BP 128/60; PULSE 100; RESP 18; TEMP 36.8; O2SAT 99
--- NOTE | 2025-10-13 17:27 | W.PM.NPUPNS ---
Subjective NPU Subjective: Patient presented today reporting that she is doing okay. She initially thought when she took the Invega that maybe it was giving rise to headaches but she has been having headaches and she reports that other people on the unit are having headaches as well so she does not feel there been any issues since she started it. She reports that she has been talking to her parents about different options including ones closer to [facility]. We discussed the fact that what ever they determined would be in her best interest as far as locations for treatment and services we could work with. She denied any clear side effects to her medication. Mental Status Exam MSE Comments: This is a well-nourished well-developed white female in hospital scrubs with limited grooming and eye contact. No longer with a towel on her head. There was no evidence of any abnormal involuntary motor movements. She was cooperative with exam. Her speech was normal in rate but very productive with normal volume. Mood described as okay. Her affect was brighter and less irritable. Her thought process was more linear with less derailment appreciated. Thought content: Patient denied suicidal or homicidal ideation. Continues to have significant delusions especially somatic. She did not report any auditory or visual hallucinations. Attention and concentration were better. She was alert and oriented to person and place and time. Insight is poor. Judgment is limited but improving and impulse control remained limited. Vitals/I&O/Wt Last Vital Signs Temp 98.3 F 10/13/25 12:59 Pulse 100 10/13/25 12:59 Resp 18 10/13/25 12:59 BP 128/60 10/13/25 12:59 Pulse Ox 99 10/13/25 12:59 O2 Del Method Room Air 10/13/25 12:59 Weight last 48 hrs Weight 64.864 kg Data NPU 09/10/25 17:05 09/10/25 17:05 A&P Assessment and plan 1. Schizoaffective disorder, bipolar type: 2. Acute psychosis: Plan: This is a 45-year-old white female who is known to this freelance copywriter [facility] psychiatry through inpatient and crisis services and presents with significant psychosis, paranoia, delusions and grandiosity off of her medications reporting she is taking natural remedies. 1. Abilify maintena given on 09/23/25. Continue abilify oral at 30mg daily. Patient refusing any medications for sleep. May consider starting Invega as patient has some improvement however significant psychosis remains. May consider decreasing Abilify oral and adding the Invega. Patient agreed to starting to decrease the oral Abilify starting tomorrow(10/13/2025) at 15 mg for 2 days then 7.5 mg for 2 days then 5 mg for 2 days then discontinue while we initiate Invega 3 mg and then titrate to effect. Next Abilify injection due 10/21/2025. Should likely try to get the Asimtufii. 2. Continue every 15 minute checks for safety. 3. Encourage individual, group and milieu therapies. 4. Will encourage trial of medication with a possible long acting injectable possibility. Discussed forced medication protocol. With 20 mg of Geodon IM for any refused doses of Abilify. 5. We will evaluate against the backdrop of the 96-hour hold. Patient placed on a 21-day hold, but now she has a guardian. 6. Obtain collateral information. 7. Encouraged sober living treatment after discharge at the highest level of care to which she is willing to commit. Concerns that cannabis is either exacerbating or a cause of her clear forward psychosis. 8. Patient's wheelchair was taken from her given there is no indications of any physical limitations but only her somatic delusional content. She was very upset by the change and struggled with interacting with anyone after the change. 9. GOOD revealed assistance needed in 7/13 domains with suggestion that the patient require 24 hour supervision in order to live safely. Will complete level 2 with family possibly supporting obtaining Guardianship in [place]. Family pursuing emergency guardianship. 10. Filed paperwork in support of Level 2. Patient now under temporary guardianship under parents, we are seeking placement in locked facility. Patient appearing in better spirits recently discussing wanting to go to care home/locked facility. There are a few programs assessing her for acceptance for placement. PDMP PDMP Reviewed: Not Reviewed Involuntary Hold Information Hold Status: Legal Status: Active Guardianship Date/Time Hold Expires: 10/01/25 Attestations NPU Medical Necessity Statement*: Inpatient hospitalization is medically necessary and the clinically appropriate intervention at this time. We will monitor medications and make changes as indicated. The patient's likely length of stay is 4-6 days. Awaiting placement determination. Coding Level of Care Code Acute Code for g Fwd Diagnoses Schizoaffective disorder, bipolar type F25.0 Acute psychosis F23
[2025-10-13] MEDS: MELATONIN 3 MG TABLET 9 MG PO (20:09)
[2025-10-13 20:16] VITALS: BP 127/81; PULSE 97; RESP 16; TEMP 36.8; O2SAT 100
[2025-10-14 06:00] VITALS: BP 116/69; PULSE 64; RESP 16; TEMP 36.8; O2SAT 95
[2025-10-14] MEDS: cetylpyridinium Lozenge 1 EACH MUCOUS MEM ×3 (06:31→19:12)
[2025-10-14] MEDS: multivitamin therapeutic Tablet 1 TAB PO (08:55)
[2025-10-14] MEDS: polyethylene glycol 3350 Pkt 17 gm PO (08:56)
[2025-10-14] MEDS: fluticasone nasal spray 16gm Btl 1 SPRAY NASAL ×2 (09:00→19:02)
--- NOTE | 2025-10-14 13:03 | P.NPUPN_ITS ---
Subjective NPU 2 Subjective: Patient presented today reporting that she is doing all right. She is aware that she will likely be moving to the new facility on Tuesday. We discussed that the facility that the criteria that we were looking for and that we have no indication that it will not be a good fit for her. We talked with the family who identified that somehow that they looked at it and it had a lower reading than they desired. We discussed the fact that she is in the hospital for quite some time and that we have appeal to countless facilities and this is the option that has presented itself and this is what commonly happens in difficult placements. We discussed that we would not be able to hold her indefinitely while we were identifying programs on some advanced symmetric but they had every right is the guardian's to explore alternative placements but it would need to be with this placement initiated. The other alternatives they had is to pick her up on Tuesday. She appears to be transitioning over to the Invega without incident per staff reports and direct communication. We discussed the likelihood of an increase of Invega to 6 mg after discussion of the risks, benefits and alternatives she understood and agreed to proceed as documented in this note. Parent/guardians are supportive of injections as the standard treatment and so ability of her getting that injection prior to discharge. Mental Status Exam 2 MSE Comments: This is a well-nourished well-developed white female in hospital scrubs with limited grooming and eye contact. No longer with a towel on her head. There was no evidence of any abnormal involuntary motor movements. She was cooperative with exam in no acute distress. Her speech was normal in rate and volume. Mood described as okay. Her affect was brighter. Her thought process was more linear with less derailment appreciated. Thought content: Patient denied suicidal or homicidal ideation. Continues to have some delusions especially somatic. She did not report any auditory or visual hallucinations. Attention and concentration were mostly intact and memory appeared mostly reliable but no more formally tested. She was alert and oriented x 3. Insight and judgment are limited but improving and impulse control remained limited but improving. Vitals/I&O/Wt Last Vital Signs Temp 98.2 F 10/14/25 06:00 Pulse 64 10/14/25 06:00 Resp 16 10/14/25 06:00 BP 116/69 10/14/25 06:00 Pulse Ox 95 10/14/25 06:00 O2 Del Method Room Air 10/14/25 06:00 Weight last 48 hrs Weight 64.864 kg Data NPU 09/10/25 17:05 09/10/25 17:05 A&P Assessment and plan 1. Schizoaffective disorder, bipolar type: 2. 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 1. Abilify maintena given on 09/23/25. Continue abilify oral at 30mg daily. Patient refusing any medications for sleep. May consider starting Invega as patient has some improvement however significant psychosis remains. May consider decreasing Abilify oral and adding the Invega. Patient agreed to starting to decrease the oral Abilify starting (10/13/2025) at 15 mg for 2 days then 7.5 mg for 2 days then 5 mg for 2 days then discontinue while we initiate Invega 3 mg and then titrate to effect. Increase Invega to 6 mg. Next Abilify injection due 10/21/2025. Should likely try to get the Asimtufii. 2. Continue every 15 minute checks for safety. 3. Encourage individual, group and milieu therapies. 4. Will encourage trial of medication with a possible long acting injectable possibility. Discussed forced medication protocol. With 20 mg of Geodon IM for any refused doses of Abilify. 5. We will evaluate against the backdrop of the 96-hour hold. Patient placed on a 21-day hold, but now she has a guardian. 6. Obtain collateral information. 7. Encouraged sober living treatment after discharge at the highest level of care to which she is willing to commit. Concerns that cannabis is either exacerbating or a cause of her clear forward psychosis. 8. Patient's wheelchair was taken from her given there is no indications of any physical limitations but only her somatic delusional content. She was very upset by the change and struggled with interacting with anyone after the change. 9. GOOD revealed assistance needed in 7/13 domains with suggestion that the patient require 24 hour supervision in order to live safely. Will complete level 2 with family possibly supporting obtaining Guardianship in [place]. Family pursuing emergency guardianship. 10. Filed paperwork in support of Level 2. Patient now under temporary guardianship under parents, we are seeking placement in locked facility. Patient appearing in better spirits recently discussing wanting to go to skilled nursing/locked facility. Facility identified and willing to pick her up on Tuesday. Family upset because they do not like or have some concerns that it is not a high enough starred facility. Treatment team discussion with them about the fact that we cannot address the situation based on that information we base it on qualified facilities that would meet the patient's needs. Recommendation that they proceed with transfer and use the time to assess the program on its own merits and look to alternative placement if the decision is they are not happy with that, but that the hospital cannot hold her while we have advanced evaluation of programs at that level. PDMP PDMP Reviewed: Not Reviewed Involuntary Hold Information 2 Hold Status: Legal Status: Active Guardianship Date/Time Hold Expires: A ctive Gaurdianship until Dec Attestations NPU 2 Medical Necessity Statement*: Inpatient hospitalization is medically necessary and the clinically appropriate intervention at this time. We will monitor medications and make changes as indicated. The patient's likely length of stay is 2 days. Coding Level of Care Code Acute Code for g Fwd Diagnoses Schizoaffective disorder, bipolar type F25.0 Acute psychosis F23
[2025-10-14 14:00] VITALS: BP 109/60; PULSE 99; RESP 16; TEMP 36.9; O2SAT 98
[2025-10-14] MEDS: MELATONIN 3 MG TABLET 9 MG PO (19:12)
[2025-10-14 20:55] VITALS: BP 116/73; PULSE 80; RESP 16; TEMP 36.6; O2SAT 100
[2025-10-15 06:00] VITALS: BP 126/81; PULSE 93; RESP 16; TEMP 37.1; O2SAT 98
[2025-10-15] MEDS: fluticasone nasal spray 16gm Btl 1 SPRAY NASAL ×2 (07:30→17:17)
[2025-10-15] MEDS: cetylpyridinium Lozenge 1 EACH MUCOUS MEM ×2 (07:56→20:01)
[2025-10-15] MEDS: polyethylene glycol 3350 Pkt 17 gm PO (07:56)
[2025-10-15] MEDS: multivitamin therapeutic Tablet 1 TAB PO (07:57)
[2025-10-15 14:00] VITALS: BP 118/75; PULSE 94; RESP 17; TEMP 37; O2SAT 97
--- NOTE | 2025-10-15 17:43 | W.PM.NPUPNS ---
Subjective NPU Subjective: Patient presented today reporting that she is feeling better overall. She was less somatically preoccupied per staff reports and direct observation. We discussed the plan for discharge tomorrow and that there were no indications that that would not be the case. We discussed the alternative location that was proposed by her parents but we discussed that that would not be something we entertained unless this facility was saying that they could take her in the similar time. As the program that she has been accepted at. She was very excited about the prospect of discharging and being in a new location with greater options and more normal living arrangements. She denied any side effects to her medications. Mental Status Exam MSE Comments: This is a well-nourished well-developed white female in hospital scrubs with limited grooming and eye contact. No longer with a towel on her head. There was no evidence of any abnormal involuntary motor movements. She was cooperative with exam in no acute distress. Her speech was normal in rate and volume. Mood described as okay. Her affect was brighter. Her thought process was more linear with less derailment appreciated. Thought content: Patient denied suicidal or homicidal ideation. Continues to have some delusions especially somatic. She did not report any auditory or visual hallucinations. Attention and concentration were mostly intact and memory appeared mostly reliable but no more formally tested. She was alert and oriented x 3. Insight and judgment are limited but improving and impulse control remained limited but improving. Vitals/I&O/Wt Last Vital Signs Temp 98.5 F 10/15/25 19:44 Pulse 93 10/15/25 19:44 Resp 17 10/15/25 19:44 BP 103/58 10/15/25 19:44 Pulse Ox 97 10/15/25 19:44 O2 Del Method Room Air 10/15/25 19:44 Data NPU 09/10/25 17:05 09/10/25 17:05 A&P Assessment and plan 1. Schizoaffective disorder, bipolar type: 2. 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 1. Abilify maintena given on 09/23/25. Continue abilify oral at 30mg daily. Patient refusing any medications for sleep. May consider starting Invega as patient has some improvement however significant psychosis remains. May consider decreasing Abilify oral and adding the Invega. Patient agreed to starting to decrease the oral Abilify starting (10/13/2025) at 15 mg for 2 days then 7.5 mg for 2 days then 5 mg for 2 days then discontinue while we initiate Invega 3 mg and then titrate to effect. Increased Invega to 6 mg. Next Abilify injection due 10/21/2025. Should likely try to get the Asimtufii. Should explore the Invega Sustenna injection but at this point we will discharge on the oral. 2. Continue every 15 minute checks for safety. 3. Encourage individual, group and milieu therapies. 4. Will encourage trial of medication with a possible long acting injectable possibility. Discussed forced medication protocol. With 20 mg of Geodon IM for any refused doses of Abilify. 5. We will evaluate against the backdrop of the 96-hour hold. Patient placed on a 21-day hold, but now she has a guardian. 6. Obtain collateral information. 7. Encouraged sober living treatment after discharge at the highest level of care to which she is willing to commit. Concerns that cannabis is either exacerbating or a cause of her clear forward psychosis. 8. Patient's wheelchair was taken from her given there is no indications of any physical limitations but only her somatic delusional content. She was very upset by the change and struggled with interacting with anyone after the change. 9. GOOD revealed assistance needed in 7/13 domains with suggestion that the patient require 24 hour supervision in order to live safely. Will complete level 2 with family possibly supporting obtaining Guardianship in [place]. Family pursuing emergency guardianship. 10. Filed paperwork in support of Level 2. Patient now under temporary guardianship under parents, we are seeking placement in locked facility. Patient appearing in better spirits recently discussing wanting to go to fdc/locked facility. Facility identified and willing to pick her up on Tuesday. Family upset because they do not like or have some concerns that it is not a high enough starred facility. Treatment team discussion with them about the fact that we cannot address the situation based on that information we base it on qualified facilities that would meet the patient's needs. Recommendation that they proceed with transfer and use the time to assess the program on its own merits and look to alternative placement if the decision is they are not happy with that, but that the hospital cannot hold her while we have advanced evaluation of programs at that level. Plan for discharge tomorrow. PDMP PDMP Reviewed: Not Reviewed Involuntary Hold Information Hold Status: Legal Status: Active Guardianship Date/Time Hold Expires: Active Gaurdianship until Dec Attestations NPU Medical Necessity Statement*: Inpatient hospitalization is medically necessary and the clinically appropriate intervention at this time. We will monitor medications and make changes as indicated. The patient's likely length of stay is 1 day. Coding Level of Care Code Acute Code for g Fwd Diagnoses Schizoaffective disorder, bipolar type F25.0 Acute psychosis F23
[2025-10-15 19:44] VITALS: BP 103/58; PULSE 93; RESP 17; TEMP 36.9; O2SAT 97
[2025-10-15] MEDS: MELATONIN 3 MG TABLET 9 MG PO (20:02)
[2025-10-16] MEDS: cetylpyridinium Lozenge 1 EACH MUCOUS MEM ×2 (05:46→07:52)
[2025-10-16 06:00] VITALS: BP 127/83; PULSE 94; RESP 20; TEMP 36.4; O2SAT 99
[2025-10-16] MEDS: fluticasone nasal spray 16gm Btl 1 SPRAY NASAL (07:49)
[2025-10-16] MEDS: sennosides-docusate Tablet 2 TAB PO (07:52)
[2025-10-16] MEDS: multivitamin therapeutic Tablet 1 TAB PO (07:52)
[2025-10-16 11:36] VITALS: BP 120/76; PULSE 136; RESP 18; TEMP 36.6; O2SAT 100
--- NOTE | 2025-10-16 16:19 | DCPLANNER ---
IMM completed 10/16/2025 @ 1004 and pt was given a copy of her rights.
== END 2025-10-16 11:48 | disposition intermediate care facility (04) | DRG 885 ==
LOC: ER 18:27 → NP 18:28
PROVIDERS: Admitting Provider Psychiatry & Neurology Psychiatry; Emergency Provider Emergency Medicine; Visit Provider Psychiatry & Neurology Psychiatry
DX: F25.0 Schizoaffective disorder, bipolar type (principal); F12.90 Cannabis use, unspecified, uncomplicated
CPT/HCPCS: 36415; 80053; 80306; 80307; 81001; 81025; 82306; 84439; 84443; 84481; 85025; 93005; 96372; 97150; 97161; 97165; 97167; 99285; J1200; J1630; J2060; J3486; J9999